=== PATIENT | female | born 1935 | race Hispanic/Latino ===

== ENCOUNTER 2018-03-21 17:44 | Inpatient (IN) | payer MEDICARE ==
--- NOTE | 2018-03-21 18:10 | ED PDOC ---
Syncope/Near Syncope/Dizziness Time Seen by Provider: 03/21/18 17:51 Chief Complaint (Nursing): Upper Extremity Problem/Injury History Per: Patient, Family History/Exam Limitations: no limitations Onset/Duration Of Symptoms: Hrs (3) Current Symptoms Are (Timing): Better Number Of Syncopal Episodes: 1 Activity At Onset Of Symptoms: Walking Associated Symptoms Preceding Syncopal Episode: Lightheadedness Seizure Or Post-ictal Symptoms: None Fall Associated With With Symptoms: Yes Severity: Moderate Pain Scale Rating Of: 4 Additional History Per: Patient, Family Additional Complaint(s): Patient reports syncopal episode x1 today. Reports dizziness that is chronic. Unable to recall all details. Denies chest pain or SOB. Reports left shoulder pain after the fall. Past Medical History Reviewed: Historical Data, Nursing Documentation, Vital Signs Vital Signs: Last Vital Signs Temp 98 F 03/21/18 17:46 Pulse 69 03/21/18 17:46 Resp 18 03/21/18 17:46 BP 150/68 03/21/18 17:46 Pulse Ox 98 03/21/18 17:46 - Medical History PMH: Anemia, Arthritis, Depression, Gastritis, HTN, Hypercholesterolemia Denies: HIV, Chronic Kidney Disease - Surgical History Surgical History: No Surg Hx - Family History Family History: States: No Known Family Hx - Home Medications Home Medications: Ambulatory Orders Medication Instructions Recorded RX: Aspirin [Aspirin EC] 81 mg PO Q48H 03/19/15 RX: Calcium/Vitamin D [Citracal+D 1 tab PO DAILY 03/19/15 315mg/250IU] RX: Labetalol Hydrochloride 300 mg PO Q12 03/19/15 [Labetalol] RX: Pantoprazole Sodium 40 mg PO DAILY 03/19/15 RX: Rosuvastatin Calcium [Crestor] 10 mg PO HS 03/19/15 RX: amLODIPine [Norvasc] 10 mg PO DAILY 03/19/15 - Allergies Allergies/Adverse Reactions: Allergies Allergy/AdvReac Type Severity Reaction Status Date / Time Penicillins Allergy Mild RASH Verified 03/21/18 18:04 Review of Systems ROS Statement: Except As Marked, All Systems Reviewed And Found Negative Physical Exam - Reviewed Nursing Documentation Reviewed: Yes Vital Signs Reviewed: Yes - Physical Exam Appears: Positive for: Non-toxic, No Acute Distress Head Exam: Positive for: ATRAUMATIC Skin: Positive for: Warm, Dry Eye Exam: Positive for: EOMI, PERRL Cardiovascular/Chest: Positive for: Regular Rate, Rhythm Respiratory: Positive for: Normal Breath Sounds Gastrointestinal/Abdominal: Positive for: Soft. Negative for: Tenderness Extremity: Negative for: Normal ROM (left shoulder limited due to pain), Deformity, Swelling Neurologic/Psych: Positive for: Alert, Oriented - Laboratory Results Result Diagrams: 03/22/18 04:20 03/22/18 06:00 - ECG O2 Sat by Pulse Oximetry: 98 - Other Rad Left shoulder xray X-Ray: Interpreted by Me, Viewed By Me X-Ray Interpretation: no acute findings Medical Decision Making Medical Decision Making: Impression Syncope, left shoulder injury Diff include cardiac arrhythmia, anemia, vertigo, as well as left shoulder fracture or dislocation Plan EKG CT head L shoulder xray labs reassess 1899 CT head reported as negative for acute findings by [facility] Disposition - Clinical Impression Clinical Impression: Syncope, Contusion shoulder/arm - Patient ED Disposition Is Patient to be Admitted: Yes Discussed With : Lico Wilde Doctor Will See Patient In The: Hospital Counseled Patient/Family Regarding: Studies Performed, Diagnosis - Disposition Disposition Time: 19:00 Condition: FAIR - Pt Status Changed To: Hospital Disposition Of: Observation - POA Present On Arrival: Falls Or Trauma
[2018-03-21 18:20] LABS: BASO # 0.1 K/uL (0.0-0.2); BASO % 0.4 % (0.0-2.0); EOS % 0.2 % (0.0-4.0); HEMOGLOBIN 8.8 g/dL (12.0-16.0); LYMPH # 1.4 K/uL (1.0-4.3); LYMPH % 10.8 % (20.0-40.0); MEAN CELL VOLUME 93.7 fl (81.0-99.0); MEAN PLATELET VOLUME 8.4 fl (7.2-11.7); MONO # 0.8 K/uL (0.0-0.8); MONO % 5.7 % (0.0-10.0); NEUT % 82.9 % (50.0-75.0); RBC 2.94 Mil/uL (3.80-5.20); RED CELL DISTRIBUTION WIDTH 13.7 % (11.5-14.5); WHITE BLOOD COUNT 13.2 K/uL (4.8-10.8)
[2018-03-21 18:24] LABS: BLOOD UREA NITROGEN 42 mg/dl (7-17); CALCIUM 9.6 mg/dL (8.4-10.2); GFR NON-AFRICAN AMERICAN 19
[2018-03-21] MEDS ORDERED: Oxycodone/Acetaminophen 5/325 mg Tab PO ONE (18:29)
[2018-03-21] MEDS ORDERED: Oxycodone/Acetaminophen 5/325 mg Tab ONE (19:16)
[2018-03-22] MEDS: Oxycodone/Acetaminophen 5/325 mg Tab PO PRN ×2 (04:47→18:06)
[2018-03-22 05:38] LABS: HEMOGLOBIN 8.6 g/dL (12.0-16.0); MEAN CELL VOLUME 91.9 fl (81.0-99.0); MEAN CORPUSCULAR HEMOGLOBIN 30.5 pg (27.0-31.0); MEAN CORPUSCULAR HGB CONC 33.2 g/dL (33.0-37.0); RBC 2.8 Mil/uL (3.80-5.20); RED CELL DISTRIBUTION WIDTH 13.4 % (11.5-14.5)
[2018-03-22 06:57] LABS: ALB/GLOB RATIO 1.7 (1.0-2.1); ALBUMIN 3.8 g/dL (3.5-5.0); CALCIUM 9.6 mg/dL (8.4-10.2)
--- NOTE | 2018-03-22 08:49 | CT ---
Date of service: 03/21/2018 PROCEDURE: CT HEAD WITHOUT CONTRAST. HISTORY: syncope COMPARISON: None available. TECHNIQUE: Axial computed tomography images were obtained through the head/brain without intravenous contrast. Radiation dose: Total exam DLP = 03/19/2015 mGy-cm. This CT exam was performed using one or more of the following dose reduction techniques: Automated exposure control, adjustment of the mA and/or kV according to patient size, and/or use of iterative reconstruction technique. FINDINGS: HEMORRHAGE: No intracranial hemorrhage. BRAIN: Anterior left temporal fossa arachnoid cyst, unchanged. Possible calcified meningioma left frontal and possible calcified meningioma right parietal, unchanged from prior. No other intracranial mass.. Mild diffuse age-appropriate cerebral atrophy. Mild to moderate patchy periventricular and deep/subcortical white matter lucency consistent with microvascular white matter ischemic change. No evidence of acute infarct. VENTRICLES: Unremarkable. No hydrocephalus. CALVARIUM: No acute fracture. PARANASAL SINUSES: Chronic left maxillary sinusitis. MASTOID AIR CELLS: Unremarkable as visualized. No inflammatory changes. OTHER FINDINGS: None. IMPRESSION: No intracranial hemorrhage. Resolved anterior midline scalp hematoma. Left temporal arachnoid cyst. Possible small calcified meningiomas. Chronic left maxillary sinusitis. Age related atrophy and chronic white matter ischemic change. The preliminary findings for this examination were reported by [facility] at 6:58 p.m. on 03/21/2018. There is concurrence of this report with the preliminary findings.
[2018-03-22] MEDS: Pantoprazole 40 mg EC Tab PO SCH (08:52)
[2018-03-22] MEDS: Citracal+D 315mg/250IU PO SCH (08:53)
[2018-03-22 08:56] VITALS: BMI 31.6
--- NOTE | 2018-03-22 10:25 | CP.PCM.HP ---
History of Present Illness - History of Present Illness History of Present Illness: pt admitted for syncope/fall. has h/o ckd, as. no f/c, n/v/d. bw noted. pt c/o left shoulder pain at present as well as b/l chronic knee pain. Present on Admission - Present on Admission Any Indicators Present on Admission: Yes History of Uncontrolled Diabetes: Yes Review of Systems - Musculoskeletal Musculoskeletal: As Per HPI, Arthralgias - Neurological Neurological: As Per HPI, Frequent Falls Past Patient History - Past Medical History & Family History Past Medical History?: Yes - Past Social History Smoking Status: Never Smoked - CARDIAC Hx Hypercholesterolemia: Yes Hx Hypertension: Yes - PULMONARY Hx Respiratory Disorders: No - NEUROLOGICAL Hx Neurological Disorder: No - HEENT Hx Macular Degeneration: Yes - RENAL Hx Chronic Kidney Disease: Yes - ENDOCRINE/METABOLIC Hx Endocrine Disorders: Yes Hx Diabetes Mellitus Type 2: Yes - HEMATOLOGICAL/ONCOLOGICAL Hx AIDS: No Hx Anemia: Yes Hx Blood Transfusions: Yes Hx Blood Transfusion Reaction: No Hx Human Immunodeficiency Virus (HIV): No - INTEGUMENTARY Hx Dermatological Problems: No - MUSCULOSKELETAL/RHEUMATOLOGICAL Hx Arthritis: Yes Hx Falls: Yes Hx Osteoporosis: Yes - GASTROINTESTINAL Hx Gastritis: Yes - GENITOURINARY/GYNECOLOGICAL Hx Genitourinary Disorders: No - PSYCHIATRIC Hx Substance Use: No - SURGICAL HISTORY Hx Surgeries: Yes Hx Hysterectomy: Yes Hx Orthopedic Surgery: Yes (right knee sx) - ANESTHESIA Hx Anesthesia: Yes Hx Anesthesia Reactions: No Meds Allergies/Adverse Reactions: Allergies Allergy/AdvReac Type Severity Reaction Status Date / Time Penicillins Allergy Mild RASH Verified 03/21/18 18:04 Physical Exam - Constitutional Appears: Well, Non-toxic, No Acute Distress - Head Exam Head Exam: ATRAUMATIC, NORMAL INSPECTION, NORMOCEPHALIC - Eye Exam Eye Exam: EOMI, Normal appearance, PERRL Pupil Exam: NORMAL ACCOMODATION, PERRL - ENT Exam ENT Exam: Mucous Membranes Moist, Normal Exam - Neck Exam Neck exam: Positive for: Normal Inspection - Respiratory Exam Respiratory Exam: Clear to Auscultation Bilateral, NORMAL BREATHING PATTERN - Cardiovascular Exam Cardiovascular Exam: REGULAR RHYTHM, RRR, +S1, +S2 - GI/Abdominal Exam GI & Abdominal Exam: Normal Bowel Sounds, Soft. absent: Tenderness - Extremities Exam Extremities exam: Positive for: full ROM, normal capillary refill, normal inspection, pedal pulses present - Back Exam Back exam: NORMAL INSPECTION - Neurological Exam Neurological exam: Alert, CN II-XII Intact, Normal Gait, Oriented x3, Reflexes Normal - Psychiatric Exam Psychiatric exam: Normal Affect, Normal Mood - Skin Skin Exam: Dry, Intact, Normal Color, Warm Results - Vital Signs Recent Vital Signs: Last Vital Signs Temp 98.3 F 03/22/18 07:52 Pulse 72 03/22/18 08:52 Resp 23 03/22/18 07:52 BP 112/59 L 03/22/18 08:52 Pulse Ox 100 03/22/18 07:52 - Labs Result Diagrams: 03/22/18 04:20 03/22/18 06:00 Labs: Laboratory Results - last 24 hr 03/21/18 03/21/18 03/21/18 18:01 18:12 18:12 WBC 13.2 H RBC 2.94 L Hgb 8.8 L Hct 27.6 L MCV 93.7 MCH 30.0 MCHC 32.0 L RDW 13.7 Plt Count 216 MPV 8.4 Neut % (Auto) 82.9 H Lymph % (Auto) 10.8 L Leslie % (Auto) 5.7 Eos % (Auto) 0.2 Baso % (Auto) 0.4 Neut # (Auto) 11.0 H Lymph # (Auto) 1.4 Leslie # (Auto) 0.8 Eos # (Auto) 0.0 Baso # (Auto) 0.1 Sodium 138 Potassium 5.0 Chloride 111 H Carbon Dioxide 14 L Anion Gap 18 BUN 42 H Creatinine 2.4 H Est GFR ( Amer) 23 Est GFR (Non-Af Amer) 19 POC Glucose (mg/dL) 123 H Random Glucose 118 H Calcium 9.6 Total Bilirubin AST ALT Alkaline Phosphatase Total Creatine Kinase Troponin I < 0.0120 Total Protein Albumin Globulin Albumin/Globulin Ratio Blood Type Antibody Screen BBK History Checked 03/21/18 03/21/18 03/21/18 18:46 18:54 21:08 WBC RBC Hgb Hct MCV MCH MCHC RDW Plt Count MPV Neut % (Auto) Lymph % (Auto) Leslie % (Auto) Eos % (Auto) Baso % (Auto) Neut # (Auto) Lymph # (Auto) Leslie # (Auto) Eos # (Auto) Baso # (Auto) Sodium Potassium Chloride Carbon Dioxide Anion Gap BUN Creatinine Est GFR ( Amer) Est GFR (Non-Af Amer) POC Glucose (mg/dL) 115 H Random Glucose Calcium Total Bilirubin AST ALT Alkaline Phosphatase Total Creatine Kinase 167 H Troponin I Total Protein Albumin Globulin Albumin/Globulin Ratio Blood Type A POSITIVE Antibody Screen Negative BBK History Checked Patient has bt 03/22/18 03/22/18 03/22/18 04:20 04:39 06:00 WBC 9.0 RBC 2.80 L Hgb 8.6 L Hct 25.8 L MCV 91.9 MCH 30.5 MCHC 33.2 RDW 13.4 Plt Count 203 MPV Neut % (Auto) Lymph % (Auto) Leslie % (Auto) Eos % (Auto) Baso % (Auto) Neut # (Auto) Lymph # (Auto) Leslie # (Auto) Eos # (Auto) Baso # (Auto) Sodium 139 Potassium 4.5 Chloride 112 H Carbon Dioxide 14 L Anion Gap 18 BUN 39 H Creatinine 2.3 H Est GFR ( Amer) 25 Est GFR (Non-Af Amer) 20 POC Glucose (mg/dL) 89 Random Glucose 87 Calcium 9.6 Total Bilirubin 0.7 AST 15 ALT 23 Alkaline Phosphatase 52 Total Creatine Kinase Troponin I Total Protein 6.1 L Albumin 3.8 Globulin 2.3 Albumin/Globulin Ratio 1.7 Blood Type Antibody Screen BBK History Checked Assessment & Plan (1) Contusion shoulder/arm Assessment and Plan: ct pm/r pain control Status: Acute (2) Syncope Assessment and Plan: cardio tele cont home meds monitor closely Status: Acute (3) Anemia Assessment and Plan: appears to be chronic. likely anemia of chronic dz monitor h.h Status: Acute (4) Aortic stenosis, severe Assessment and Plan: cardio echo Status: Acute (5) CKD (chronic kidney disease) Assessment and Plan: monitor bun/cr hydration nephro prn Status: Acute (6) DVT prophylaxis Assessment and Plan: scd and ae hose hold anticoag r/t falls Status: Acute (7) Diabetes type 2, uncontrolled Assessment and Plan: fsbg, diet control home meds Status: Acute Decision To Admit - Pt Status Changed To: Hospital Disposition Of: Inpatient - Admit Certification Admit to Inpatient:: After my assessment, the patient will require hospitalization for at least two midnights. This is because of the severity of symptoms shown, intensity of services needed, and/or the medical risk in this patient being treated as an outpatient. - . Bed Request Type: Telemetry Admitting Physician: Gopal Phoenix
--- NOTE | 2018-03-22 11:13 | CARD ---
APPROVED REPORT Date of service: 03/21/2018 EKG Measurement Heart [id number] <Conclusion> Normal sinus rhythm Normal ECG
--- NOTE | 2018-03-22 11:45 | RAD ---
Date of service: 03/21/2018 PROCEDURE: Radiographs of the Left Shoulder HISTORY: left shoulder pain injury COMPARISON: No prior. FINDINGS: BONES: Normal. No fracture. JOINTS: Glenohumeral degenerative change. SOFT TISSUES: Normal. OTHER FINDINGS: None. IMPRESSION: No significant or acute findings to account for/ related to the clinical presentation. Additional benign and/or incidental findings described above.
--- NOTE | 2018-03-22 17:21 | CP.PCM.CON ---
History of Present Illness - History of Present Illness History of Present Illness: I was asked to see patient by Dr Phoenix and Lico Wilde APN. Patient seen 03/22/18 1630 Patient is a 83 year old female with HTN, hypercholesterolemia and who was admitted for syncope. Patient complains of recent dizziness. While at home yesterday she was walking and developed dizziness. She fell and injured her shoulder. She denies preceding palpitiations or dyspnea. Review of Systems - Constitutional Constitutional: absent: As Per HPI, Anorexia, Chills, Daytime Sleepiness, Excessive Sweating, Fatigue, Fever, Frequent Falls, Headache, Increased Appet ite, Lethargy, Malaise, Night Sweats, Snoring, Sleep Apnea, Weight Gain, Weight Loss, Weakness, Other - EENT Eyes: absent: As Per HPI, Blind Spots, Blurred Vision, Change in Vision, Decreased Night Vision, Diplopia, Discharge, Dry Eye, Exophthalmos, Floaters, I rritation, Itchy Eyes, Loss of Peripheral Vision, Pain, Photophobia, Requires Corrective Lenses, Sees Flashes, Spots in Vision, Tunnel Vision, Other Visual Disturbances, Loss of Vision, Other Ears: absent: As Per HPI, Decreased Hearing, Ear Discharge, Ear Pain, Tinnitus, Abnormal Hearing, Disequilibrium, Dizziness, Other Nose/Mouth/Throat: absent: As Per HPI, Epistaxis, Nasal Congestion, Nasal Discharge, Nasal Obstruction, Nasal Trauma, Nose Pain, Post Nasal Drip, Sinus Pain, Sinus Pressure, Bleeding Gums, Change in Voice, Dental Pain, Dry Mouth, Dysphagia, Halitosis, Hoarsness, Lip Swelling, Mouth Lesions, Mouth Pain, Odynophagia, Sore Throat, Throat Swelling, Tongue Swelling, Facial Pain, Neck Pain, Neck Mass, Other - Breasts Breasts: absent: As Per HPI, Change in Shape, Mass, Pain, Nipple Discharge, Nipple Inversion, Skin Changes, Swelling, Other - Cardiovascular Cardiovascular: Syncope - Respiratory Respiratory: absent: As Per HPI, Cough, Dyspnea, Hemoptysis, Dyspnea on Exertion, Wheezing, Snoring, Stridor, Pain on Inspiration, Chest Congestion, Excessive Mucous Production, Change in Mucous Color, Pain with Coughing, Other - Gastrointestinal Gastrointestinal: absent: As Per HPI, Abdominal Pain, Belching, Bloating, Change in Bowel Habits, Change in Stool Character, Coffee Ground Emesis, Constipation, Cramping, Diarrhea, Dyspepsia, Dysphagia, Early Satiety, Excessive Flatus, Fecal Incontinence, Heartburn, Hematemesis, Hematochezia, Loose Stools, Melena, Nausea, Odynophagia, Temesmus, Vomiting, Other - Genitourinary Genitourinary: absent: As Per HPI, Change in Urinary Stream, Difficulty Urinating, Dysuria, Flank Pain, Hematuria, Pyuria, Nocturia, Urinary Incontinence, Urinary Frequency, Urinary Hesitance, Urinary Urgency, Voiding Freq/Small Amts, Freq UTI, Hx Renal/Bladder Calculi, Hx /Renal Surgery, Bladder Distension, Other - Musculoskeletal Musculoskeletal: absent: As Per HPI, Abnormal Gait, Arthralgias, Atrophy, Back Pain, Deformity, Joint Swelling, Limited Range of Motion, Loss of Height, Muscle Cramps, Muscle Weakness, Myalgias, Neck Pain, Numbness, Radiating Pain into L imb, Stiffness, Tingling, Other - Integumentary Integumentary: absent: As Per HPI, Acne, Alopecia, Bleeding Lesions, Change in Hair, Change in Nails, Change in Pigmentation, Changing Lesions, Dry Skin, Erythema, Furuncle, Hirsutism, Lesions, New Lesions, Non-Healing Lesions, Photosensitivity, Pruritus, Rash, Skin Pain, Skin Ulcer, Sores, Striae, Swelling, Unusual Bruising, Wounds, Jaundice, Other - Neurological Neurological: Syncope - Psychiatric Psychiatric: absent: As Per HPI, Abnormal Sleep Pattern, Anhedonia, Anxiety, Auditory Hallucinations, Behavioral Changes, Change in Appetite, Change in Libido, Confusion, Depression, Difficulty Concentrating, Hallucinations, Homicid al Ideation, Hopelessness, Irritability, Memory Loss, Mood Swings, Panic Attacks, Paranoia, Suicidal Ideation, Visual Hallucinations, Tactile Hallucinations, Other - Endocrine Endocrine: absent: As Per HPI, Change in Body Appearance, Change in Libido, Cold Intolorance, Deepening of Voice, Excessive Sweating, Fatigue, Flushing, Heat Intolorance, Increase in Ring/Shoe/Hat Size, Palpitations, Polydipsia, Polyphagia, Polyuria, Other - Hematologic/Lymphatic Hematologic: absent: As Per HPI, Easy Bleeding, Easy Bruising, Lymphadenopathy, Other Past Patient History - Past Medical History & Family History Past Medical History?: Yes - Past Social History Smoking Status: Never Smoked - CARDIAC Hx Hypercholesterolemia: Yes Hx Hypertension: Yes - PULMONARY Hx Respiratory Disorders: No - NEUROLOGICAL Hx Neurological Disorder: No - HEENT Hx Macular Degeneration: Yes - RENAL Hx Chronic Kidney Disease: Yes - ENDOCRINE/METABOLIC Hx Endocrine Disorders: Yes Hx Diabetes Mellitus Type 2: Yes - HEMATOLOGICAL/ONCOLOGICAL Hx AIDS: No Hx Anemia: Yes Hx Blood Transfusions: Yes Hx Blood Transfusion Reaction: No Hx Human Immunodeficiency Virus (HIV): No - INTEGUMENTARY Hx Dermatological Problems: No - MUSCULOSKELETAL/RHEUMATOLOGICAL Hx Arthritis: Yes Hx Falls: Yes Hx Osteoporosis: Yes - GASTROINTESTINAL Hx Gastritis: Yes - GENITOURINARY/GYNECOLOGICAL Hx Genitourinary Disorders: No - PSYCHIATRIC Hx Substance Use: No - SURGICAL HISTORY Hx Surgeries: Yes Hx Hysterectomy: Yes Hx Orthopedic Surgery: Yes (right knee sx) - ANESTHESIA Hx Anesthesia: Yes Hx Anesthesia Reactions: No Meds Allergies/Adverse Reactions: Allergies Allergy/AdvReac Type Severity Reaction Status Date / Time Penicillins Allergy Mild RASH Verified 03/21/18 18:04 - Medications Medications: Current Medications Acetaminophen (Tylenol 325mg Tab) 650 mg PO Q4 PRN PRN Reason: Pain, moderate (4-7) Last Admin: 03/22/18 09:43 Dose: 650 mg Amlodipine Besylate (Norvasc) 10 mg PO DAILY [facility] Last Admin: 03/22/18 08:52 Dose: 10 mg Aspirin (Ecotrin) 81 mg PO Q7D [facility] Last Admin: 03/22/18 08:52 Dose: 81 mg Atorvastatin Calcium (Lipitor) 20 mg PO HS [facility] Last Admin: 03/21/18 21:34 Dose: 20 mg Calcium/Vitamin D (Citracal+D 315mg/250iu) 1 tab PO DAILY [facility] Last Admin: 03/22/18 08:53 Dose: 1 tab Labetalol HCl (Trandate) 300 mg PO Q12 [facility] Last Admin: 03/22/18 08:53 Dose: 300 mg Oxycodone/Acetaminophen (Percocet 5/325 Mg Tab) 1 tab PO Q6 PRN PRN Reason: Pain, severe (8-10) Stop: 03/24/18 20:43 Last Admin: 03/22/18 04:47 Dose: 1 tab Pantoprazole Sodium (Protonix Ec Tab) 40 mg PO DAILY [facility] Last Admin: 03/22/18 08:52 Dose: 40 mg Physical Exam - Constitutional Appears: Non-toxic - Head Exam Head Exam: NORMAL INSPECTION - Eye Exam Eye Exam: Normal appearance - ENT Exam ENT Exam: Mucous Membranes Moist - Neck Exam Neck exam: Positive for: Full Rom - Respiratory Exam Respiratory Exam: NORMAL BREATHING PATTERN - Cardiovascular Exam Cardiovascular Exam: REGULAR RHYTHM, Systolic Murmur Additional comments: crescendo systolic murmur - GI/Abdominal Exam GI & Abdominal Exam: Normal Bowel Sounds - Rectal Exam Rectal Exam: Deferred - Extremities Exam Extremities exam: Positive for: normal inspection. Negative for: pedal edema - Back Exam Back exam: NORMAL INSPECTION - Neurological Exam Neurological exam: Alert, Oriented x3 - Psychiatric Exam Psychiatric exam: Normal Affect - Skin Skin Exam: Normal Color Results - Vital Signs Recent Vital Signs: Last Vital Signs Temp 98.2 F 03/22/18 12:00 Pulse 65 03/22/18 16:28 Resp 23 03/22/18 16:00 BP 121/68 03/22/18 16:28 Pulse Ox 93 L 03/22/18 16:28 - Labs Result Diagrams: 03/22/18 04:20 03/22/18 06:00 Labs: Laboratory Results - last 24 hr 03/21/18 03/21/18 03/21/18 18:01 18:12 18:12 WBC 13.2 H RBC 2.94 L Hgb 8.8 L Hct 27.6 L MCV 93.7 MCH 30.0 MCHC 32.0 L RDW 13.7 Plt Count 216 MPV 8.4 Neut % (Auto) 82.9 H Lymph % (Auto) 10.8 L Kerr % (Auto) 5.7 Eos % (Auto) 0.2 Baso % (Auto) 0.4 Neut # (Auto) 11.0 H Lymph # (Auto) 1.4 Kerr # (Auto) 0.8 Eos # (Auto) 0.0 Baso # (Auto) 0.1 Sodium 138 Potassium 5.0 Chloride 111 H Carbon Dioxide 14 L Anion Gap 18 BUN 42 H Creatinine 2.4 H Est GFR ( Amer) 23 Est GFR (Non-Af Amer) 19 POC Glucose (mg/dL) 123 H Random Glucose 118 H Calcium 9.6 Total Bilirubin AST ALT Alkaline Phosphatase Total Creatine Kinase Troponin I < 0.0120 Total Protein Albumin Globulin Albumin/Globulin Ratio Blood Type Antibody Screen BBK History Checked 03/21/18 03/21/18 03/21/18 18:46 18:54 21:08 WBC RBC Hgb Hct MCV MCH MCHC RDW Plt Count MPV Neut % (Auto) Lymph % (Auto) Kerr % (Auto) Eos % (Auto) Baso % (Auto) Neut # (Auto) Lymph # (Auto) Kerr # (Auto) Eos # (Auto) Baso # (Auto) Sodium Potassium Chloride Carbon Dioxide Anion Gap BUN Creatinine Est GFR ( Amer) Est GFR (Non-Af Amer) POC Glucose (mg/dL) 115 H Random Glucose Calcium Total Bilirubin AST ALT Alkaline Phosphatase Total Creatine Kinase 167 H Troponin I Total Protein Albumin Globulin Albumin/Globulin Ratio Blood Type A POSITIVE Antibody Screen Negative BBK History Checked Patient has bt 03/22/18 03/22/18 03/22/18 04:20 04:39 06:00 WBC 9.0 RBC 2.80 L Hgb 8.6 L Hct 25.8 L MCV 91.9 MCH 30.5 MCHC 33.2 RDW 13.4 Plt Count 203 MPV Neut % (Auto) Lymph % (Auto) Kerr % (Auto) Eos % (Auto) Baso % (Auto) Neut # (Auto) Lymph # (Auto) Kerr # (Auto) Eos # (Auto) Baso # (Auto) Sodium 139 Potassium 4.5 Chloride 112 H Carbon Dioxide 14 L Anion Gap 18 BUN 39 H Creatinine 2.3 H Est GFR ( Amer) 25 Est GFR (Non-Af Amer) 20 POC Glucose (mg/dL) 89 Random Glucose 87 Calcium 9.6 Total Bilirubin 0.7 AST 15 ALT 23 Alkaline Phosphatase 52 Total Creatine Kinase Troponin I Total Protein 6.1 L Albumin 3.8 Globulin 2.3 Albumin/Globulin Ratio 1.7 Blood Type Antibody Screen BBK History Checked 03/22/18 11:44 WBC RBC Hgb Hct MCV MCH MCHC RDW Plt Count MPV Neut % (Auto) Lymph % (Auto) Kerr % (Auto) Eos % (Auto) Baso % (Auto) Neut # (Auto) Lymph # (Auto) Kerr # (Auto) Eos # (Auto) Baso # (Auto) Sodium Potassium Chloride Carbon Dioxide Anion Gap BUN Creatinine Est GFR ( Amer) Est GFR (Non-Af Amer) POC Glucose (mg/dL) 110 Random Glucose Calcium Total Bilirubin AST ALT Alkaline Phosphatase Total Creatine Kinase Troponin I Total Protein Albumin Globulin Albumin/Globulin Ratio Blood Type Antibody Screen BBK History Checked - EKG Data EKG Interpreted by: Myself EKG shows normal: Sinus rhythm Assessment & Plan (1) Syncope Assessment and Plan: may be due to orthostasis or a combination of relative hypotension in a patient with aortic stenosis. The degree of does not appear to explain the cause of her dizziness. She has moderate to severe . Status: Acute (2) Aortic stenosis Assessment and Plan: Moderate to severe. LV function is normal. Does not appear surgical at this time. recommend d/c amlodipine. may need to decrease labetalol to avoid hypotension Status: Acute (3) HTN (hypertension) Assessment and Plan: d/c amlodipine Status: Acute
--- NOTE | 2018-03-22 17:50 | CT ---
Date of service: 03/22/2018 PROCEDURE: CT left shoulder HISTORY: left shoulder pain COMPARISON: Not available TECHNIQUE: 2.5 mm contiguous axial sections were acquired through the left shoulder. Sagittal and coronal images were reformatted from the axial scan. No prior examination is available for comparison. FINDINGS: There is an oblique mildly displaced comminuted fracture of the left scapula. There is mild osteoarthritis of the glenohumeral articulation. The acromioclavicular articulation shows degenerative arthritis. There is no rib fracture. No lytic or blastic osseous lesion is appreciated. There is no soft tissue hematoma identified. There is a small comminuted minimally displaced fracture of the tip of the coracoid process. There is mild compression deformity of the T4 vertebra and moderate compression deformity of the T6 vertebra. Mild compression deformity of the T7 vertebra. Age indeterminate. No displaced fractures. There is grade 1-2 anterolisthesis at the C6-7 level with severe narrowing of the disc space consistent with degenerative disc disease. IMPRESSION: Comminuted oblique displaced left scapular fracture. Comminuted fracture tip of coracoid process. Compression fractures of T4, T6 and T7 vertebrae, age indeterminate. The findings were described by telephone to the patient's nurse, Sue Tong, at 5:45 p.m. on 03/22/2018.
--- NOTE | 2018-03-23 00:07 | CARD ---
APPROVED REPORT Date of service: 03/22/2018 EXAM: Two-dimensional and M-mode echocardiogram with Doppler and color Doppler. Other Information Quality : AverageRhythm : NSR Technically limited study due to Has a brikeb shoulder arm in a sling INDICATION Congestive Heart Failure 2D DIMENSIONS IVSd1.14 (0.7-1.1cm)LVDd4.44 (3.9-5.9cm) LVOT Diameter2.27 (1.8-2.4cm)PWd1.00 (0.7-1.1cm) IVSs1.26 (0.8-1.2cm)LVDs3.56 (2.5-4.0cm) FS (%) 19.9 %PWs1.15 (0.8-1.2cm) Aortic Valve AoV Peak Zaboaiys576.4cm/sAoV VTI70.3cmAO Peak GR.34mmHg LVOT Peak Cvgpkuph31.0cm/sLVOT VTI23.41cmAO Mean GR.20mmHg MARISSA (VMAX)0.54fu1KMV (VTI)0.79cm2 Mitral Valve MV E Ydpwzzuw35.5cm/sMV DECEL FFEW444buSB A Sdnwkprt97.5cm/s MV OCI50jwH/A ratio0.7MVA (PHT)2.39cm2 TDI Lateral E' Peak V7.82cm/sMedial E' Peak V6.11cm/sE/Lateral E'8.6 E/Medial E'11.0 LEFT VENTRICLE The left ventricle is normal size. There is borderline concentric left ventricular hypertrophy. The left ventricular systolic function is normal. The estimated ejection fraction is 55-60 % No regional wall motion abnormalities noted.. Transmitral Doppler flow pattern is Grade I-abnormal relaxation pattern. No left ventricle thrombus noted on this study. There is no ventricular septal defect visualized. There is no left ventricular aneurysm. There is no mass noted in the left ventricle. RIGHT VENTRICLE The right ventricle is normal size. There is normal right ventricular wall thickness. The right ventricular systolic function is normal. ATRIA The left atrium is moderately dilated. The right atrium size is normal. The interatrial septum is intact with no evidence for an atrial septal defect. AORTIC VALVE The aortic leaflets are mildly calcified. No aortic regurgitation is present. There is mild to moderate aortic stenosis, with aortic velocity of 3 m/sec with calculated AV area of 1.4 cm2. There is no aortic valvular vegetation. MITRAL VALVE The mitral valve is normal in structure. There is no evidence of mitral valve prolapse. There is no mitral valve stenosis. There is no mitral valve regurgitation noted. TRICUSPID VALVE The tricuspid valve is normal in structure. There is mild tricuspid valve regurgitation noted. There is no tricuspid valve prolapse or vegetation. There is no tricuspid valve stenosis. PULMONIC VALVE The pulmonary valve is normal in structure. There is no pulmonic valvular regurgitation. There is no pulmonic valvular stenosis. GREAT VESSELS The aortic root is normal in size. The ascending aorta is normal in size. The pulmonary artery is normal. The IVC is normal in size and collapses >50% with inspiration. PERICARDIAL EFFUSION There is no pericardial effusion. There is no pleural effusion. <Conclusion> The estimated ejection fraction is 55-60 % Transmitral Doppler flow pattern is Grade I-abnormal relaxation pattern. The left atrium is moderately dilated. There is mild to moderate aortic stenosis, with aortic velocity of 3 m/sec with calculated AV area of 1.4 cm2. There is mild tricuspid valve regurgitation noted.
[2018-03-23 05:42] LABS: BASO % 0.4 % (0.0-2.0); EOS # 0.1 K/uL (0.0-0.7); EOS % 1.1 % (0.0-4.0); HEMOGLOBIN 8.6 g/dL (12.0-16.0); LYMPH # 1.6 K/uL (1.0-4.3); LYMPH % 16.7 % (20.0-40.0); MEAN CELL VOLUME 94.8 fl (81.0-99.0); MEAN CORPUSCULAR HGB CONC 32.7 g/dL (33.0-37.0); MEAN PLATELET VOLUME 8.5 fl (7.2-11.7); MONO # 0.9 K/uL (0.0-0.8); MONO % 8.8 % (0.0-10.0); NEUT # 7.2 K/uL (1.8-7.0); RBC 2.78 Mil/uL (3.80-5.20); RED CELL DISTRIBUTION WIDTH 13.1 % (11.5-14.5); WHITE BLOOD COUNT 9.9 K/uL (4.8-10.8)
[2018-03-23 06:09] LABS: ALB/GLOB RATIO 1.8 (1.0-2.1); CALCIUM 9.6 mg/dL (8.4-10.2)
[2018-03-23 07:38] VITALS: O2SAT 94
[2018-03-23] MEDS: Citracal+D 315mg/250IU PO SCH (09:45)
[2018-03-23] MEDS: Pantoprazole 40 mg EC Tab PO SCH (09:46)
[2018-03-23] MEDS: Oxycodone/Acetaminophen 5/325 mg Tab PO PRN (09:51)
[2018-03-23 09:52] VITALS: PULSE 64
--- NOTE | 2018-03-23 10:08 | CP.PCM.PN ---
Subjective - Date & Time of Evaluation Date of Evaluation: 04/02/18 Time of Evaluation: 10:05 - Subjective Subjective: pt doing well, in bed w/o distress. pain controlled bw noted. hgb stable, bun/cr stable ct w/ obliqe fx of humerous-ortho on case cardio notes appriciated. echo noted. pt notes reviewed and pt is for 6NR Objective - Vital Signs/Intake and Output Vital Signs (last 24 hours): Temp Pulse Resp BP Pulse Ox 98.1 F 64 31 H 131/62 94 L 03/23/18 07:37 03/23/18 09:45 03/23/18 07:37 03/23/18 09:45 03/23/18 07:37 - Medications Medications: Current Medications Acetaminophen (Tylenol 325mg Tab) 650 mg PO Q4 PRN PRN Reason: Pain, moderate (4-7) Last Admin: 03/22/18 09:43 Dose: 650 mg Amlodipine Besylate (Norvasc) 10 mg PO DAILY [facility] Last Admin: 03/23/18 09:45 Dose: Not Given Aspirin (Ecotrin) 81 mg PO Q7D [facility] Last Admin: 03/22/18 08:52 Dose: 81 mg Atorvastatin Calcium (Lipitor) 20 mg PO HS [facility] Last Admin: 03/22/18 21:08 Dose: 20 mg Calcium/Vitamin D (Citracal+D 315mg/250iu) 1 tab PO DAILY [facility] Last Admin: 03/23/18 09:45 Dose: 1 tab Labetalol HCl (Trandate) 300 mg PO Q12 [facility] Last Admin: 03/23/18 09:46 Dose: 300 mg Oxycodone/Acetaminophen (Percocet 5/325 Mg Tab) 1 tab PO Q6 PRN PRN Reason: Pain, severe (8-10) Stop: 03/24/18 20:43 Last Admin: 03/23/18 09:51 Dose: 1 tab Pantoprazole Sodium (Protonix Ec Tab) 40 mg PO DAILY [facility] Last Admin: 03/23/18 09:46 Dose: 40 mg - Labs Labs: 03/23/18 04:20 03/23/18 04:20 - Constitutional Appears: Well, Non-toxic, No Acute Distress - Head Exam Head Exam: ATRAUMATIC, NORMAL INSPECTION, NORMOCEPHALIC - Eye Exam Eye Exam: EOMI, Normal appearance, PERRL Pupil Exam: NORMAL ACCOMODATION, PERRL - ENT Exam ENT Exam: Mucous Membranes Moist, Normal Exam - Neck Exam Neck Exam: Full ROM, Normal Inspection. absent: Lymphadenopathy - Respiratory Exam Respiratory Exam: Clear to Ausculation Bilateral, NORMAL BREATHING PATTERN - Cardiovascular Exam Cardiovascular Exam: REGULAR RHYTHM, RRR, +S1, +S2. absent: Murmur - GI/Abdominal Exam GI & Abdominal Exam: Soft, Normal Bowel Sounds. absent: Tenderness - Extremities Exam Extremities Exam: Full ROM, Normal Capillary Refill, Normal Inspection. absent: Joint Swelling, Pedal Edema - Back Exam Back Exam: NORMAL INSPECTION - Neurological Exam Neurological Exam: Alert, Awake, CN II-XII Intact, Normal Gait, Oriented x3 - Psychiatric Exam Psychiatric exam: Normal Affect, Normal Mood - Skin Skin Exam: Dry, Intact, Normal Color, Warm Assessment and Plan (1) Contusion shoulder/arm Status: Acute (2) Syncope Status: Acute (3) Anemia Status: Acute (4) Aortic stenosis, severe Status: Acute (5) CKD (chronic kidney disease) Status: Acute (6) DVT prophylaxis Status: Acute (7) Diabetes type 2, uncontrolled Status: Acute - Assessment and Plan (Free Text) Assessment: (1) fracture shoulder/arm Assessment and Plan: ct pm/r pain control ortho Status: Acute (2) Syncope Assessment and Plan: cardio tele cont home meds monitor closely cardio cleared for 6nr Status: Acute (3) Anemia Assessment and Plan: appears to be chronic. likely anemia of chronic dz monitor h.h Status: Acute (4) Aortic stenosis, severe Assessment and Plan: cardio echo Status: Acute (5) CKD (chronic kidney disease) Assessment and Plan: monitor bun/cr hydration nephro prn Status: Acute (6) DVT prophylaxis Assessment and Plan: scd and ae hose hold anticoag r/t falls Status: Acute (7) Diabetes type 2, uncontrolled Assessment and Plan: fsbg, diet control home meds Status: Acute
--- NOTE | 2018-03-23 10:09 | PQF ---
PROVIDER RESPONSE TEXT: Ckd stage 3 REVIEWER QUERY TEXT: Kidney Disease, Chronic CKD Stage Chronic Kidney Disease (CKD) is documented in the Medical Record. Please specify the disease stage ( includes probable or suspected) Such as: -- Chronic kidney disease Stage 1 -- Chronic kidney disease Stage 2 -- Chronic kidney disease Stage 3 -- Chronic kidney disease Stage 4 -- Chronic kidney disease Stage 5 -- Chronic kidney disease Stage 5, requiring dialysis -- End Stage Renal Disease -- Other, please specify Stages are defined by the [employer] as follows: CKD Stage I GFR >= 90 ml / min per 1.73 m2 and persistent albuminuria CKD Stage 2 GFR between 60 and 89 with persistent albuminuria CKD Stage 3 GFR between 30 and 59 CKD Stage 4 GFR between 15 and 29 CKD Stage 5 GFR between <15 or End Stage Renal Disease The patient's Clinical Indicators include: BUN: 42-> 39 -> 47 Creatinine 2.4 -> 2.3 -> 2.3 GFR: 19-> 20 -> 20 Query created by: Whit Randle on 03/23/2018 9:59 AM Electronically signed by: Lico Wilde APN 03/23/2018 10:06 AM
--- NOTE | 2018-03-23 10:30 | RAD ---
Date of service: 03/22/2018 PROCEDURE: Bilateral Knee Radiographs. HISTORY: pain, falls COMPARISON: None. FINDINGS: BONES: Right Knee: No acute fracture. Status post ORIF proximal tibia, likely lateral tibial condyle fracture. Healed. Left Knee: Normal. No fracture. JOINTS: Right Knee: Severe tricompartmental osteoarthritis most pronounced in the medial joint compartment. No articular erosions. Left knee: Medial and patellofemoral osteoarthritis most pronounced in the medial joint compartment. No articular erosions. SOFT TISSUES: Right Knee: Normal. Left Knee: Normal. JOINT EFFUSION: Right Knee: None. Left Knee: None. OTHER FINDINGS: None. IMPRESSION: No acute fracture. Multi compartmental osteoarthritis bilaterally as detailed above.
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
[2018-03-23 16:21] VITALS: BP 106/48; RESP 19; TEMP 97
--- NOTE | 2018-03-25 18:41 | CP.PCM.DIS ---
Provider - Provider Date of Admission: 03/21/18 18:29 Attending physician: Gopal Phoenix MD Consults: 03/21/18 20:56 Cardiology Consult Routine Comment: Consulting Provider: Issac Jimenez Consulting Physician: Issac Jimenez Reason for Consult: Syncope 03/21/18 23:14 Case Management Referral Routine Comment: Physician Instructions: Reason For Exam: Reason for Referral: Discharge Planning 03/22/18 10:43 Physiatry Consult Routine Comment: Consulting Provider: Anatoliy Verduzco Consulting Physician: Anatoliy Verduzco Reason for Consult: chronci pain, falls 03/22/18 18:11 Orthopedic Consult Routine Comment: Consulting Provider: Jasmin Adkins Consulting Physician: Jasmin Adkins Reason for Consult: left humerus fx Time Spent in preparation of Discharge (in minutes): 15 Diagnosis - Discharge Diagnosis (1) Contusion shoulder/arm Status: Acute (2) Syncope Status: Acute (3) Anemia Status: Acute (4) Aortic stenosis, severe Status: Acute (5) CKD (chronic kidney disease) Status: Acute (6) DVT prophylaxis Status: Acute (7) Diabetes type 2, uncontrolled Status: Acute Hospital Course - Lab Results Lab Results: Micro Results 03/23/18 18:25 Naris MRSA Culture (Admit) - Final MRSA NOT DETECTED 03/21/18 08:21 Naris MRSA Culture (Admit) - Final MRSA NOT DETECTED Most Recent Lab Values WBC 9.9 K/uL (4.8-10.8) 03/23/18 04:20 RBC 2.78 Mil/uL (3.80-5.20) L 03/23/18 04:20 Hgb 8.6 g/dL (12.0-16.0) L 03/23/18 04:20 Hct 26.4 % (34.0-47.0) L 03/23/18 04:20 MCV 94.8 fl (81.0-99.0) D 03/23/18 04:20 MCH 31.0 pg (27.0-31.0) 03/23/18 04:20 MCHC 32.7 g/dL (33.0-37.0) L 03/23/18 04:20 RDW 13.1 % (11.5-14.5) 03/23/18 04:20 Plt Count 192 K/uL (130-400) 03/23/18 04:20 MPV 8.5 fl (7.2-11.7) 03/23/18 04:20 Neut % (Auto) 73.0 % (50.0-75.0) 03/23/18 04:20 Lymph % (Auto) 16.7 % (20.0-40.0) L 03/23/18 04:20 Burnet % (Auto) 8.8 % (0.0-10.0) 03/23/18 04:20 Eos % (Auto) 1.1 % (0.0-4.0) 03/23/18 04:20 Baso % (Auto) 0.4 % (0.0-2.0) 03/23/18 04:20 Neut # (Auto) 7.2 K/uL (1.8-7.0) H 03/23/18 04:20 Lymph # (Auto) 1.6 K/uL (1.0-4.3) 03/23/18 04:20 Burnet # (Auto) 0.9 K/uL (0.0-0.8) H 03/23/18 04:20 Eos # (Auto) 0.1 K/uL (0.0-0.7) 03/23/18 04:20 Baso # (Auto) 0.0 K/uL (0.0-0.2) 03/23/18 04:20 Sodium 140 mmol/l (132-148) 03/23/18 04:20 Potassium 4.6 MMOL/L (3.6-5.0) 03/23/18 04:20 Chloride 113 mmol/L (98-107) H 03/23/18 04:20 Carbon Dioxide 18 mmol/L (22-30) L 03/23/18 04:20 Anion Gap 14 (10-20) 03/23/18 04:20 BUN 47 mg/dl (7-17) H 03/23/18 04:20 Creatinine 2.3 mg/dl (0.7-1.2) H 03/23/18 04:20 Est GFR ( Amer) 25 03/23/18 04:20 Est GFR (Non-Af Amer) 20 03/23/18 04:20 POC Glucose (mg/dL) 117 mg/dL (65-110) H 03/23/18 16:49 Random Glucose 126 mg/dL (65-105) H 03/23/18 04:20 Calcium 9.6 mg/dL (8.4-10.2) 03/23/18 04:20 Phosphorus 3.4 mg/dl (2.5-4.5) 03/23/18 04:20 Magnesium 1.7 MG/DL (1.6-2.3) 03/23/18 04:20 Total Bilirubin 0.5 mg/dl (0.2-1.3) 03/23/18 04:20 AST 21 U/L (14-36) 03/23/18 04:20 ALT 26 U/L (9-52) 03/23/18 04:20 Alkaline Phosphatase 43 U/L (38-126) 03/23/18 04:20 Total Creatine Kinase 167 U/L (30-135) H 03/21/18 18:54 Troponin I < 0.0120 ng/mL (0.00-0.120) 03/21/18 18:12 Total Protein 6.1 G/DL (6.3-8.2) L 03/23/18 04:20 Albumin 4.0 g/dL (3.5-5.0) 03/23/18 04:20 Globulin 2.2 gm/dL (2.2-3.9) 03/23/18 04:20 Albumin/Globulin Ratio 1.8 (1.0-2.1) 03/23/18 04:20 Blood Type A POSITIVE 03/21/18 18:46 Antibody Screen Negative 03/21/18 18:46 BBK History Checked Patient has bt 03/21/18 18:46 - Hospital Course Hospital Course: ortho cardio echo pain control Discharge Exam - Head Exam Head Exam: ATRAUMATIC, NORMOCEPHALIC Discharge Plan - Follow Up Plan Condition: FAIR Disposition: REHAB FACILITY/REHAB UNIT Instructions: Shoulder Blade Fracture (DC) Additional Instructions: final dx-humerous fx, syncope, chf, anemia-chronic, ckd doing well, stable, cleared by cardio for dc to [facility] will follow there and meds per med rec
== END 2018-03-23 17:58 | DRG 565 ==
LOC: H.ER 17:44 → H.ERHOLD 18:29 → H.ICU/CCU 20:11
PROVIDERS: ADMIT Family Medicine; ATTEND Family Medicine
DX: S42.112A Displaced fracture of body of scapula, left shoulder, initial encounter for closed fracture (principal); M48.54XA Collapsed vertebra, not elsewhere classified, thoracic region, initial encounter for fracture; R55 Syncope and collapse; I12.9 Hypertensive chronic kidney disease with stage 1 through stage 4 chronic kidney disease, or unspecified chronic kidney disease; E11.22 Type 2 diabetes mellitus with diabetic chronic kidney disease; I35.0 Nonrheumatic aortic (valve) stenosis; N18.3 Chronic kidney disease, stage 3 (moderate); E11.65 Type 2 diabetes mellitus with hyperglycemia; E78.00 Pure hypercholesterolemia, unspecified; G89.29 Other chronic pain; H35.30 Unspecified macular degeneration; Z88.0 Allergy status to penicillin; F32.9 Major depressive disorder, single episode, unspecified; K29.70 Gastritis, unspecified, without bleeding; M81.0 Age-related osteoporosis without current pathological fracture; D63.8 Anemia in other chronic diseases classified elsewhere; Z79.82 Long term (current) use of aspirin; M17.0 Bilateral primary osteoarthritis of knee; W19.XXXA Unspecified fall, initial encounter; Y92.009 Unspecified place in unspecified non-institutional (private) residence as the place of occurrence of the external cause; S42.132A Displaced fracture of coracoid process, left shoulder, initial encounter for closed fracture; S80.02XA Contusion of left knee, initial encounter; S80.01XA Contusion of right knee, initial encounter; Z53.20 Procedure and treatment not carried out because of patient's decision for unspecified reasons; M25.862 Other specified joint disorders, left knee; Z91.81 History of falling

== ENCOUNTER 2018-03-23 16:03 | Inpatient (IN) | payer MEDICARE ==
[2018-03-22 08:56] VITALS: BMI 31.6
--- NOTE | 2018-03-23 19:08 | PCM.OPOC ---
Physiatry Overall Plan of Care - Overall Plan of Care Estimated Length of Stay in Weeks: 2 Rehab Impairment: Mobility, Gait, Coordination Etiologic Diagnosis: Other (upper extremity fracture and debility) Rehab/Medical Prognosis: Fair - Anticipated Interventions Physical Therapy:: Yes Occupational Therapy:: Yes Speech Therapy:: No Recreational Therapy:: Yes - Therapy Goals Bed Mobility: Contact Guard Ambulation: Supervision Functional Positional Changes:: Supervision - Discharge Plan Identification of Barriers to Discharge: Home Situation Discharge Destination: Home
--- NOTE | 2018-03-23 19:10 | CP.PCM.CON ---
History of Present Illness - History of Present Illness History of Present Illness: Dr Verduzco PMR consultation on Thelma Esteves born, 1935 who has been admitted to [facility] for acute inpatient rehabilitation following a fall and left scapular fracture and noted thoracic compression fractures (age indeterminate). She is right hand dominant and although lives alone she notes an increased difficulty in doing all of her tasks. Very independent minded. She [address] [facility] [address] Arm is in a sling. Non-operative treatment Review of Systems - Constitutional Constitutional: absent: Chills, Daytime Sleepiness - EENT Eyes: absent: Change in Vision Ears: absent: Ear Discharge, Ear Pain Nose/Mouth/Throat: absent: Nasal Congestion, Nasal Discharge - Cardiovascular Cardiovascular: absent: Chest Pain - Respiratory Respiratory: absent: Dyspnea, Hemoptysis - Gastrointestinal Gastrointestinal: absent: Belching - Integumentary Integumentary: absent: Bleeding Lesions - Neurological Neurological: absent: Abnormal Movements, Burning Sensations, Radicular Pain, Vertigo - Psychiatric Psychiatric: absent: Anxiety Past Patient History - Past Medical History & Family History Past Medical History?: Yes - Past Social History Smoking Status: Never Smoked Alcohol: None Drugs: Denies Home Situation {Lives}: Alone - CARDIAC Hx Hypercholesterolemia: Yes Hx Hypertension: Yes - PULMONARY Hx Respiratory Disorders: No - NEUROLOGICAL Hx Neurological Disorder: No Hx Dizziness: Yes - HEENT Hx Macular Degeneration: Yes - RENAL Hx Chronic Kidney Disease: Yes - ENDOCRINE/METABOLIC Hx Endocrine Disorders: Yes Hx Diabetes Mellitus Type 2: Yes - HEMATOLOGICAL/ONCOLOGICAL Hx AIDS: No Hx Anemia: Yes Hx Blood Transfusions: Yes Hx Blood Transfusion Reaction: No Hx Human Immunodeficiency Virus (HIV): No - INTEGUMENTARY Hx Dermatological Problems: No - MUSCULOSKELETAL/RHEUMATOLOGICAL Hx Falls: Yes - GASTROINTESTINAL Hx Gastritis: Yes - GENITOURINARY/GYNECOLOGICAL Hx Genitourinary Disorders: No - PSYCHIATRIC Hx Substance Use: No - SURGICAL HISTORY Hx Surgeries: Yes Hx Hysterectomy: Yes Hx Orthopedic Surgery: Yes (right knee sx) - ANESTHESIA Hx Anesthesia: Yes Hx Anesthesia Reactions: No Meds Allergies/Adverse Reactions: Allergies Allergy/AdvReac Type Severity Reaction Status Date / Time Penicillins Allergy Mild RASH Verified 03/21/18 18:04 - Medications Medications: Current Medications Acetaminophen (Tylenol 325mg Tab) 650 mg PO Q4 PRN PRN Reason: Pain, moderate (4-7) Aspirin (Ecotrin) 81 mg PO Q72 [facility] Atorvastatin Calcium (Lipitor) 20 mg PO HS [facility] Calcium/Vitamin D (Citracal+D 315mg/250iu) 1 tab PO DAILY [facility] Home Med (Rosuvastatin Calcium [Crestor]) 10 mg PO HS [facility] Labetalol HCl (Trandate) 200 mg PO Q12 [facility] Oxycodone/Acetaminophen (Percocet 5/325 Mg Tab) 1 tab PO Q6 PRN PRN Reason: Pain, severe (8-10) Stop: 03/26/18 18:20 Pantoprazole Sodium (Protonix Ec Tab) 40 mg PO DAILY [facility] Physical Exam - Constitutional Appears: Non-toxic, No Acute Distress - Head Exam Head Exam: ATRAUMATIC, NORMAL INSPECTION, NORMOCEPHALIC - Eye Exam Eye Exam: EOMI - ENT Exam ENT Exam: Mucous Membranes Moist - Respiratory Exam Respiratory Exam: NORMAL BREATHING PATTERN - Cardiovascular Exam Cardiovascular Exam: REGULAR RHYTHM - GI/Abdominal Exam GI & Abdominal Exam: Normal Bowel Sounds - Extremities Exam Extremities exam: Negative for: calf tenderness - Neurological Exam Neurological exam: Alert, CN II-XII Intact, Oriented x3 - Psychiatric Exam Psychiatric exam: Normal Affect, Normal Mood - Skin Skin Exam: Warm Results - Vital Signs Recent Vital Signs: Last Vital Signs Temp Pulse 77 03/23/18 18:45 Resp 20 03/23/18 18:45 BP Pulse Ox Assessment & Plan - Assessment and Plan (Free Text) Assessment: Can move left hand/wrist without issue marked synovial joint changes R>L knee. She has had unsuccessful injections in the past significant djd of the fingers/hands as well PT/OT to continue to help increase functional independence Team conference for d/c planning Pain: controlled Vascular: no evidence of DVT GI: No evidence of constipation or diarrhea Patient is an excellent acute rehabilitation candidate and will have focused pain management, PT, OT and recreational therapy to help facilitate a safe and appropriate d/c plan Impairment code 08.9
[2018-03-24 06:37] LABS: BASO % 0.5 % (0.0-2.0); EOS # 0.1 K/uL (0.0-0.7); EOS % 1.6 % (0.0-4.0); HEMOGLOBIN 8.5 g/dL (12.0-16.0); LYMPH % 22.6 % (20.0-40.0); MEAN CELL VOLUME 92.3 fl (81.0-99.0); MEAN CORPUSCULAR HEMOGLOBIN 30.6 pg (27.0-31.0); MEAN CORPUSCULAR HGB CONC 33.2 g/dL (33.0-37.0); MEAN PLATELET VOLUME 8.4 fl (7.2-11.7); MONO # 0.8 K/uL (0.0-0.8); NEUT # 5.9 K/uL (1.8-7.0); NEUT % 66.3 % (50.0-75.0); RBC 2.78 Mil/uL (3.80-5.20); RED CELL DISTRIBUTION WIDTH 13.2 % (11.5-14.5); WHITE BLOOD COUNT 8.9 K/uL (4.8-10.8)
[2018-03-24 06:52] LABS: ALB/GLOB RATIO 1.7 (1.0-2.1); ALBUMIN 3.8 g/dL (3.5-5.0); CALCIUM 9.6 mg/dL (8.4-10.2)
[2018-03-24] MEDS: Citracal+D 315mg/250IU PO SCH (09:15)
[2018-03-24] MEDS: Pantoprazole 40 mg EC Tab PO SCH (09:15)
[2018-03-24] MEDS: Oxycodone/Acetaminophen 5/325 mg Tab PO PRN ×2 (09:17→21:47)
--- NOTE | 2018-03-24 10:19 | CP.PCM.HP ---
History of Present Illness - History of Present Illness History of Present Illness: pt admitted to [facility] ([facility] for disability, chronic ble pain, weakness. no f/c, n/v/d. bw noted. h/h and bun/cr stable. still w/ left shoulder pain after fx-conservative tx as per ortho. Present on Admission - Present on Admission Any Indicators Present on Admission: Yes History of Uncontrolled Diabetes: Yes Review of Systems - Musculoskeletal Musculoskeletal: As Per HPI, Arthralgias - Neurological Neurological: As Per HPI, Frequent Falls Past Patient History - Past Medical History & Family History Past Medical History?: Yes - Past Social History Smoking Status: Never Smoked Alcohol: None Drugs: Denies Home Situation {Lives}: Alone - CARDIAC Hx Hypercholesterolemia: Yes Hx Hypertension: Yes - PULMONARY Hx Respiratory Disorders: No - NEUROLOGICAL Hx Neurological Disorder: No Hx Dizziness: Yes - HEENT Hx Macular Degeneration: Yes - RENAL Hx Chronic Kidney Disease: Yes - ENDOCRINE/METABOLIC Hx Endocrine Disorders: Yes Hx Diabetes Mellitus Type 2: Yes - HEMATOLOGICAL/ONCOLOGICAL Hx AIDS: No Hx Anemia: Yes Hx Blood Transfusions: Yes Hx Blood Transfusion Reaction: No Hx Human Immunodeficiency Virus (HIV): No - INTEGUMENTARY Hx Dermatological Problems: No - MUSCULOSKELETAL/RHEUMATOLOGICAL Hx Falls: Yes - GASTROINTESTINAL Hx Gastritis: Yes - GENITOURINARY/GYNECOLOGICAL Hx Genitourinary Disorders: No - PSYCHIATRIC Hx Substance Use: No - SURGICAL HISTORY Hx Surgeries: Yes Hx Hysterectomy: Yes Hx Orthopedic Surgery: Yes (right knee sx) - ANESTHESIA Hx Anesthesia: Yes Hx Anesthesia Reactions: No Meds Allergies/Adverse Reactions: Allergies Allergy/AdvReac Type Severity Reaction Status Date / Time Penicillins Allergy Mild RASH Verified 03/21/18 18:04 Physical Exam - Constitutional Appears: Well, Non-toxic, No Acute Distress - Head Exam Head Exam: ATRAUMATIC, NORMAL INSPECTION, NORMOCEPHALIC - Eye Exam Eye Exam: EOMI, Normal appearance, PERRL Pupil Exam: NORMAL ACCOMODATION, PERRL - ENT Exam ENT Exam: Mucous Membranes Moist, Normal Exam - Neck Exam Neck exam: Positive for: Normal Inspection - Respiratory Exam Respiratory Exam: Clear to Auscultation Bilateral, NORMAL BREATHING PATTERN - Cardiovascular Exam Cardiovascular Exam: REGULAR RHYTHM, RRR, +S1, +S2, Systolic Murmur - GI/Abdominal Exam GI & Abdominal Exam: Normal Bowel Sounds, Soft. absent: Tenderness - Extremities Exam Extremities exam: Positive for: full ROM, normal capillary refill, normal inspection, pedal pulses present - Back Exam Back exam: NORMAL INSPECTION - Neurological Exam Neurological exam: Abnormal Gait, Alert, CN II-XII Intact, Oriented x3, Reflexes Normal - Psychiatric Exam Psychiatric exam: Normal Affect, Normal Mood - Skin Skin Exam: Dry, Intact, Normal Color, Warm Results - Vital Signs Recent Vital Signs: Last Vital Signs Temp 98.1 F 03/24/18 09:46 Pulse 65 03/24/18 09:46 Resp 18 03/24/18 09:46 BP 143/57 L 03/24/18 09:46 Pulse Ox 95 03/24/18 09:46 - Labs Result Diagrams: 03/24/18 05:20 03/24/18 05:20 Labs: Laboratory Results - last 24 hr 03/23/18 03/24/18 03/24/18 21:07 05:20 05:20 WBC 8.9 RBC 2.78 L Hgb 8.5 L Hct 25.7 L MCV 92.3 D MCH 30.6 MCHC 33.2 RDW 13.2 Plt Count 203 MPV 8.4 Neut % (Auto) 66.3 Lymph % (Auto) 22.6 Hart % (Auto) 9.0 Eos % (Auto) 1.6 Baso % (Auto) 0.5 Neut # (Auto) 5.9 Lymph # (Auto) 2.0 Hart # (Auto) 0.8 Eos # (Auto) 0.1 Baso # (Auto) 0.0 Sodium 139 Potassium 4.7 Chloride 115 H Carbon Dioxide 16 L Anion Gap 13 BUN 46 H Creatinine 2.2 H Est GFR ( Amer) 26 Est GFR (Non-Af Amer) 21 POC Glucose (mg/dL) 91 Random Glucose 120 H Calcium 9.6 Phosphorus 3.3 Magnesium 1.6 Total Bilirubin 0.5 AST 31 ALT 24 Alkaline Phosphatase 48 Total Protein 6.0 L Albumin 3.8 Globulin 2.2 Albumin/Globulin Ratio 1.7 Assessment & Plan (1) Humeral fracture Assessment and Plan: ortho pain control splint distal pms intact Status: Acute (2) Anemia Assessment and Plan: monitor likely anemia of chronic dz Status: Acute (3) Aortic stenosis Assessment and Plan: cardio nonsurgical, med management Status: Acute (4) CKD (chronic kidney disease) Assessment and Plan: monitor appears stable Status: Acute (5) DVT prophylaxis Assessment and Plan: scd and ae hose heparin Status: Acute Decision To Admit - Pt Status Changed To: Hospital Disposition Of: Inpatient - Admit Certification Admit to Inpatient:: After my assessment, the patient will require hospitalization for at least two midnights. This is because of the severity of symptoms shown, intensity of services needed, and/or the medical risk in this patient being treated as an outpatient. - . Bed Request Type: Acute Rehab Admitting Physician: Gopal Phoenix
[2018-03-24] MEDS ORDERED: Dexamethasone 4 mg/1 ml IAA ONE (17:44)
[2018-03-24] MEDS ORDERED: Triamcinolone Acetonide 40 mg/mL Inj IAA ONE (17:44)
[2018-03-24] MEDS ORDERED: Lidocaine 1% (10 ml) Inj IAA ONE (17:44)
--- NOTE | 2018-03-24 17:44 | CP.PCM.PN ---
Subjective - Date & Time of Evaluation Date of Evaluation: 03/24/18 Time of Evaluation: 17:43 - Subjective Subjective: Patient seen in the room. doing well wants to have the right knee injected. MRI had been performed today, results pending I will order meds pain is otherwise controlled in the left UE working hard in therapies. Objective - Vital Signs/Intake and Output Vital Signs (last 24 hours): Temp Pulse Resp BP Pulse Ox 98.1 F 65 18 143/57 L 95 03/24/18 09:46 03/24/18 09:46 03/24/18 09:46 03/24/18 09:46 03/24/18 09:46 - Medications Medications: Current Medications Acetaminophen (Tylenol 325mg Tab) 650 mg PO Q4 PRN PRN Reason: Pain, moderate (4-7) Last Admin: 03/24/18 15:18 Dose: 650 mg Aspirin (Ecotrin) 81 mg PO Q72 [facility] Atorvastatin Calcium (Lipitor) 20 mg PO HS [facility] Last Admin: 03/23/18 21:16 Dose: 20 mg Calcium/Vitamin D (Citracal+D 315mg/250iu) 1 tab PO DAILY [facility] Last Admin: 03/24/18 09:15 Dose: 1 tab Heparin Sodium (Porcine) (Heparin) 5,000 units SC Q12 [facility]; Protocol Labetalol HCl (Trandate) 200 mg PO Q12 [facility] Last Admin: 03/24/18 09:15 Dose: 200 mg Oxycodone/Acetaminophen (Percocet 5/325 Mg Tab) 1 tab PO Q6 PRN PRN Reason: Pain, severe (8-10) Stop: 03/26/18 18:20 Last Admin: 03/24/18 09:17 Dose: 1 tab Pantoprazole Sodium (Protonix Ec Tab) 40 mg PO DAILY [facility] Last Admin: 03/24/18 09:15 Dose: 40 mg - Labs Labs: 03/24/18 05:20 03/24/18 05:20
[2018-03-24] MEDS ORDERED: Lidocaine 1% Inj (20ml) IJ ONE (20:00)
--- NOTE | 2018-03-24 22:31 | CP.PCM.PN ---
Subjective - Date & Time of Evaluation Date of Evaluation: 03/24/18 Time of Evaluation: 14:00 - Subjective Subjective: Patient seen and examined OOB to wheelchair comfortable. Pain well controlled. Immobilized in sling but unable to sleep with sling. No other complaints. Objective - Vital Signs/Intake and Output Vital Signs (last 24 hours): Temp Pulse Resp BP Pulse Ox 97.0 F L 64 20 165/73 H 98 03/24/18 19:53 03/24/18 19:53 03/24/18 19:53 03/24/18 19:53 03/24/18 19:53 - Medications Medications: Current Medications Acetaminophen (Tylenol 325mg Tab) 650 mg PO Q4 PRN PRN Reason: Pain, moderate (4-7) Last Admin: 03/24/18 15:18 Dose: 650 mg Aspirin (Ecotrin) 81 mg PO Q72 [facility] Atorvastatin Calcium (Lipitor) 20 mg PO HS [facility] Last Admin: 03/24/18 21:47 Dose: 20 mg Calcium/Vitamin D (Citracal+D 315mg/250iu) 1 tab PO DAILY [facility] Last Admin: 03/24/18 09:15 Dose: 1 tab Heparin Sodium (Porcine) (Heparin) 5,000 units SC Q12 [facility]; Protocol Last Admin: 03/24/18 21:39 Dose: Not Given Labetalol HCl (Trandate) 200 mg PO Q12 [facility] Last Admin: 03/24/18 21:46 Dose: 200 mg Oxycodone/Acetaminophen (Percocet 5/325 Mg Tab) 1 tab PO Q6 PRN PRN Reason: Pain, severe (8-10) Stop: 03/26/18 18:20 Last Admin: 03/24/18 21:47 Dose: 1 tab Pantoprazole Sodium (Protonix Ec Tab) 40 mg PO DAILY [facility] Last Admin: 03/24/18 09:15 Dose: 40 mg - Labs Labs: 03/24/18 05:20 03/24/18 05:20 - Extremities Exam Additional comments: L shoulder: Donjoy sling intact mild swelling and ecchymosis posterolaterally about the scapula region diffuse tenderness posteriorly and laterally no lesions, no erythema ROM restricted due to fracture sensation and motor intact AXN/MN/UN/RN radial pulse intact comps soft NT R knee: mild swelling laterally, mild diffuse tenderness anteriorly mod varus alignment old anterolateral scar well healed FROM sensation intact SP/DP/TN motor intact EHL/FHL/TA/G/HS/Q pedal pulses intact calves soft NT L knee:mild swelling, mild diffuse tenderness anteriorly mild varus alignment FROM sensation intact SP/DP/TN motor intact EHL/FHL/TA/G/HS/Q pedal pulses intact calves soft NT Assessment and Plan (1) Cyst of left knee joint Assessment & Plan: Pending MRI Status: Acute (2) Left scapula fracture Assessment & Plan: -Shlouder immobilizer at all times -NWB LUE -pain control Status: Acute (3) Osteoarthritis of knees, bilateral Assessment & Plan: -PT/OT WBAT with cane to RUE -Will consider steroid injection to right knee if symptomatic Status: Acute
[2018-03-25] MEDS: Citracal+D 315mg/250IU PO SCH (09:14)
[2018-03-25] MEDS: Pantoprazole 40 mg EC Tab PO SCH (09:14)
--- NOTE | 2018-03-25 14:58 | CP.PCM.PN ---
Subjective - Date & Time of Evaluation Date of Evaluation: 03/25/18 Time of Evaluation: 14:00 - Subjective Subjective: Patient seen and examined OOB to chair comfortable. Pain better controlled today. No acute events overnight. No other complaints. Objective - Vital Signs/Intake and Output Vital Signs (last 24 hours): Temp Pulse Resp BP Pulse Ox 96.9 F L 60 22 139/67 96 03/25/18 08:24 03/25/18 08:24 03/25/18 08:24 03/25/18 08:24 03/25/18 08:24 - Medications Medications: Current Medications Acetaminophen (Tylenol 325mg Tab) 650 mg PO Q4 PRN PRN Reason: Pain, moderate (4-7) Last Admin: 03/25/18 09:14 Dose: 650 mg Aspirin (Ecotrin) 81 mg PO Q72 [facility] Atorvastatin Calcium (Lipitor) 20 mg PO HS [facility] Last Admin: 03/24/18 21:47 Dose: 20 mg Calcium/Vitamin D (Citracal+D 315mg/250iu) 1 tab PO DAILY [facility] Last Admin: 03/25/18 09:14 Dose: 1 tab Heparin Sodium (Porcine) (Heparin) 5,000 units SC Q12 [facility]; Protocol Last Admin: 03/25/18 10:19 Dose: Not Given Labetalol HCl (Trandate) 200 mg PO Q12 [facility] Last Admin: 03/25/18 09:14 Dose: 200 mg Oxycodone/Acetaminophen (Percocet 5/325 Mg Tab) 1 tab PO Q6 PRN PRN Reason: Pain, severe (8-10) Stop: 03/26/18 18:20 Last Admin: 03/24/18 21:47 Dose: 1 tab Pantoprazole Sodium (Protonix Ec Tab) 40 mg PO DAILY [facility] Last Admin: 03/25/18 09:14 Dose: 40 mg - Labs Labs: 03/24/18 05:20 03/24/18 05:20 - Extremities Exam Additional comments: L shoulder: Donjoy sling intact diffuse tenderness posteriorly and laterally no lesions, no erythema ROM restricted due to fracture sensation and motor intact AXN/MN/UN/RN radial pulse intact comps soft NT R knee: mild swelling laterally, mild diffuse tenderness anteriorly mod varus alignment old anterolateral scar well healed FROM sensation intact SP/DP/TN motor intact EHL/FHL/TA/G/HS/Q pedal pulses intact calves soft NT L knee:mild swelling, mild diffuse tenderness anteriorly mild varus alignment FROM sensation intact SP/DP/TN motor intact EHL/FHL/TA/G/HS/Q pedal pulses intact calves soft NT Assessment and Plan (1) Cyst of left knee joint Assessment & Plan: MRI shows subchondral cyst secondary to arthritis, no acute orthopedic intervention at this time WBAT pain control Status: Acute (2) Left scapula fracture Assessment & Plan: Sling immobilizer at all times NWB LUE Status: Acute (3) Osteoarthritis of knees, bilateral Assessment & Plan: Amenable to Steroid inject to right knee, Dr. Verduzco to perform PT/OT WBAT, strengthening and ROM exercises Status: Acute
--- NOTE | 2018-03-25 16:13 | MRI ---
MRI left knee History: Knee pain. Comparison: X-ray dated 03/22/2018 Findings: Nonvisualization of the anterior cruciate ligament at its expected location in the intercondylar notch suggestive for chronic complete tear. Marked thickening with increased signal seen within the posterior cruciate ligament suggestive for high-grade sprain with partial interstitial tearing. Complex tear involving the body and posterior horn of the medial meniscus with blunting of the tip of the body and posterior horn. Transverse linear oblique signal seen within the anterior horn of the medial meniscus extending to the articular surface. Linear increased signal seen within the anterior horn of the lateral meniscus extending to the articular surface consistent with a tear. Moderate grade sprain of the medial collateral ligament. Lateral collateral ligament complex structures are preserved. Mild distal quadriceps tendinopathy. Patellar tendon is preserved. Prominent cartilage thinning and loss overlying the patellar apex and medial patellar facet with signal change in the mid posterior patella suggestive for severe chondromalacia patella. Severe cartilage thinning and loss involving medial compartment of the femorotibial joint space with prominent signal change with subchondral cyst formation seen within the mid medial femoral condyle and mid medial proximal tibia at the articular surfaces suggestive for severe osteochondral change. Some cortical flattening and or cortical irregularity at the articular surfaces consistent with a severe medial compartment osteoarthrosis. Mild lateral compartment a cartilage thinning and loss. Moderate suprapatellar joint effusion. Moderate grade strain at the lateral patellar retinaculum. Impression: 1. 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 2. Nonvisualization of the anterior cruciate ligament at its expected location in the intercondylar notch suggestive for chronic complete tear. 3. Marked thickening with increased signal seen within the posterior cruciate ligament suggestive for high-grade sprain with partial interstitial tearing. 4. Complex tear involving the body and posterior horn of the medial meniscus with blunting of the tip of the body and posterior horn. Transverse linear oblique signal seen within the anterior horn of the medial meniscus extending to the articular surface. 5. Linear increased signal seen within the anterior horn of the lateral meniscus extending to the articular surface consistent with a tear. 6. Moderate grade sprain of the medial collateral ligament. 7. Mild distal quadriceps tendinopathy. 8. Prominent cartilage thinning and loss overlying the patellar apex and medial patellar facet with signal change in the mid posterior patella suggestive for severe chondromalacia patella. 9. Severe cartilage thinning and loss involving medial compartment of the femorotibial joint space with prominent signal change with subchondral cyst formation seen within the mid medial femoral condyle and mid medial proximal tibia at the articular surfaces suggestive for severe osteochondral change. Some cortical flattening and or cortical irregularity at the articular surfaces consistent with a severe medial compartment osteoarthrosis. 10. Mild lateral compartment a cartilage thinning and loss. 11. Moderate suprapatellar joint effusion. 12. Moderate grade strain at the lateral patellar retinaculum. A preliminary report was generated at 6:29 p.m. on 03/24/[address] Earl Caruso from [facility].
[2018-03-25] MEDS ORDERED: Povidone Iodine Topical 10% Sol TOP STA (16:27)
[2018-03-25] MEDS ORDERED: Povidone Iodine Topical 10% Sol ONE (16:31)
--- NOTE | 2018-03-25 16:36 | PCM.PROC ---
Procedures Attestation:: I certify that I have explained the specified Operation(s) or Procedure(s), risks, benefits and reasonable alternatives to the Patient and/or other person responsible. The opportunity was given to ask questions and all questions answered - Joint Aspiration/Injection Joint #1 Consent Obtained: Verbal Consent Time Out Performed: Yes Side of Body: Right Joint Aspirated: Knee Ultrasound Guidance Used: No Skin Prep: Povidone-Iodine Needle Size Used: 22 G Fluid Clarity: Clear Total Fluid Removed (mls): 4 Medication Injected: Triamcinolone Acetate, Methylprednisolone, Lidocaine Patient Tolorated Procedure: Well Complications: None
[2018-03-25] MEDS ORDERED: Lidocaine 1% (10 ml) Inj IAA ONE (16:37)
[2018-03-25] MEDS ORDERED: Dexamethasone 4 mg/1 ml IAA ONE (16:37)
[2018-03-25] MEDS ORDERED: Triamcinolone Acetonide 40 mg/mL Inj IAA ONE (16:37)
--- NOTE | 2018-03-25 16:37 | CP.PCM.PN ---
Subjective - Date & Time of Evaluation Date of Evaluation: 03/25/18 Time of Evaluation: 16:37 - Subjective Subjective: Patient seen in the room doing well in good spirits denies sob/cp left arm sling in place I performed a right knee injection and she was very happy with the procedure and wants the left knee done tomorrow. Objective - Vital Signs/Intake and Output Vital Signs (last 24 hours): Temp Pulse Resp BP Pulse Ox 96.9 F L 60 22 139/67 96 03/25/18 08:24 03/25/18 08:24 03/25/18 08:24 03/25/18 08:24 03/25/18 08:24 - Medications Medications: Current Medications Acetaminophen (Tylenol 325mg Tab) 650 mg PO Q4 PRN PRN Reason: Pain, moderate (4-7) Last Admin: 03/25/18 09:14 Dose: 650 mg Aspirin (Ecotrin) 81 mg PO Q72 [facility] Atorvastatin Calcium (Lipitor) 20 mg PO HS [facility] Last Admin: 03/24/18 21:47 Dose: 20 mg Calcium/Vitamin D (Citracal+D 315mg/250iu) 1 tab PO DAILY [facility] Last Admin: 03/25/18 09:14 Dose: 1 tab Heparin Sodium (Porcine) (Heparin) 5,000 units SC Q12 [facility]; Protocol Last Admin: 03/25/18 10:19 Dose: Not Given Labetalol HCl (Trandate) 200 mg PO Q12 [facility] Last Admin: 03/25/18 09:14 Dose: 200 mg Oxycodone/Acetaminophen (Percocet 5/325 Mg Tab) 1 tab PO Q6 PRN PRN Reason: Pain, severe (8-10) Stop: 03/26/18 18:20 Last Admin: 03/24/18 21:47 Dose: 1 tab Pantoprazole Sodium (Protonix Ec Tab) 40 mg PO DAILY [facility] Last Admin: 03/25/18 09:14 Dose: 40 mg - Labs Labs: 03/24/18 05:20 03/24/18 05:20
[2018-03-26] MEDS ORDERED: Dexamethasone 4 mg/1 ml IAA ONE (07:35)
[2018-03-26] MEDS ORDERED: Triamcinolone Acetonide 40 mg/mL Inj IAA ONE (07:43)
[2018-03-26] MEDS ORDERED: Lidocaine 1% (10 ml) Inj IAA ONE (07:45)
[2018-03-26] MEDS: Citracal+D 315mg/250IU PO SCH (08:42)
[2018-03-26] MEDS: Pantoprazole 40 mg EC Tab PO SCH (08:43)
--- NOTE | 2018-03-26 18:02 | CP.PCM.PN ---
Subjective - Date & Time of Evaluation Date of Evaluation: 03/26/18 Time of Evaluation: 18:00 - Subjective Subjective: Pt seen in the room had an excellent response to the right knee injection. very happy feels over 90 percent relief looking forward to today's left knee injection Objective - Vital Signs/Intake and Output Vital Signs (last 24 hours): Temp Pulse Resp BP Pulse Ox 98 F 88 20 140/80 98 03/26/18 08:00 03/26/18 08:00 03/26/18 08:00 03/26/18 08:00 03/26/18 08:00 - Medications Medications: Current Medications Acetaminophen (Tylenol 325mg Tab) 650 mg PO Q4 PRN PRN Reason: Pain, moderate (4-7) Aspirin (Ecotrin) 81 mg PO Q72 [facility] Last Admin: 03/26/18 08:42 Dose: 81 mg Atorvastatin Calcium (Lipitor) 20 mg PO HS [facility] Last Admin: 03/25/18 21:06 Dose: 20 mg Calcium/Vitamin D (Citracal+D 315mg/250iu) 1 tab PO DAILY [facility] Last Admin: 03/26/18 08:42 Dose: 1 tab Heparin Sodium (Porcine) (Heparin) 5,000 units SC Q12 [facility]; Protocol Last Admin: 03/26/18 10:11 Dose: Not Given Labetalol HCl (Trandate) 200 mg PO Q12 [facility] Last Admin: 03/26/18 08:42 Dose: 200 mg Oxycodone/Acetaminophen (Percocet 5/325 Mg Tab) 1 tab PO Q6 PRN PRN Reason: Pain, severe (8-10) Stop: 03/26/18 18:20 Last Admin: 03/24/18 21:47 Dose: 1 tab Pantoprazole Sodium (Protonix Ec Tab) 40 mg PO DAILY [facility] Last Admin: 03/26/18 08:43 Dose: 40 mg - Labs Labs: 03/24/18 05:20 03/24/18 05:20
--- NOTE | 2018-03-26 18:03 | PCM.PROC ---
Procedures Attestation:: I certify that I have explained the specified Operation(s) or Procedure(s), risks, benefits and reasonable alternatives to the Patient and/or other person responsible. The opportunity was given to ask questions and all questions answered - Joint Aspiration/Injection Joint #1 Consent Obtained: Verbal Consent Time Out Performed: Yes Side of Body: Left Joint Aspirated: Knee Ultrasound Guidance Used: No Skin Prep: Povidone-Iodine Needle Size Used: 22 G Total Fluid Removed (mls): 0 Medication Injected: Triamcinolone Acetate, Methylprednisolone, Lidocaine Patient Tolorated Procedure: Well Complications: None
[2018-03-26] MEDS: Lidocaine 1% Inj (20ml) IV ONE ×2 (18:11→18:13)
--- NOTE | 2018-03-27 08:30 | CP.PCM.PN ---
Subjective - Date & Time of Evaluation Date of Evaluation: 03/27/18 Time of Evaluation: 08:30 - Subjective Subjective: pt doing well. no f/c, n/v/d. had sob last night after therapy but w/o sob now. no distress. sitting in [facility]. doing well overall w/ PT, had joint injection w/ dr valdez yesterday. no c/o pain at present Objective - Vital Signs/Intake and Output Vital Signs (last 24 hours): Temp Pulse Resp BP Pulse Ox 97.2 F L 66 18 149/70 97 03/26/18 22:00 03/27/18 07:58 03/27/18 07:58 03/27/18 07:58 03/27/18 07:58 - Medications Medications: Current Medications Acetaminophen (Tylenol 325mg Tab) 650 mg PO Q4 PRN PRN Reason: Pain, moderate (4-7) Last Admin: 03/26/18 20:10 Dose: 650 mg Aspirin (Ecotrin) 81 mg PO Q72 [facility] Last Admin: 03/26/18 08:42 Dose: 81 mg Atorvastatin Calcium (Lipitor) 20 mg PO HS [facility] Last Admin: 03/26/18 21:10 Dose: 20 mg Calcium/Vitamin D (Citracal+D 315mg/250iu) 1 tab PO DAILY [facility] Last Admin: 03/26/18 08:42 Dose: 1 tab Heparin Sodium (Porcine) (Heparin) 5,000 units SC Q12 [facility]; Protocol Last Admin: 03/26/18 20:09 Dose: Not Given Labetalol HCl (Trandate) 200 mg PO Q12 [facility] Last Admin: 03/26/18 20:09 Dose: 200 mg Pantoprazole Sodium (Protonix Ec Tab) 40 mg PO DAILY [facility] Last Admin: 03/26/18 08:43 Dose: 40 mg - Labs Labs: 03/24/18 05:20 03/24/18 05:20 - Constitutional Appears: Well, Non-toxic - Head Exam Head Exam: ATRAUMATIC, NORMAL INSPECTION, NORMOCEPHALIC - Eye Exam Eye Exam: EOMI, Normal appearance, PERRL Pupil Exam: NORMAL ACCOMODATION, PERRL - ENT Exam ENT Exam: Mucous Membranes Moist, Normal Exam - Neck Exam Neck Exam: Full ROM, Normal Inspection. absent: Lymphadenopathy - Respiratory Exam Respiratory Exam: Clear to Ausculation Bilateral, NORMAL BREATHING PATTERN - Cardiovascular Exam Cardiovascular Exam: REGULAR RHYTHM, RRR, +S1, +S2, Murmur - GI/Abdominal Exam GI & Abdominal Exam: Soft, Normal Bowel Sounds. absent: Tenderness - Extremities Exam Extremities Exam: Full ROM, Normal Capillary Refill, Normal Inspection. absent: Joint Swelling, Pedal Edema - Back Exam Back Exam: NORMAL INSPECTION - Neurological Exam Neurological Exam: Abnormal Gait, Alert, Awake, CN II-XII Intact, Oriented x3 - Psychiatric Exam Psychiatric exam: Normal Affect, Normal Mood - Skin Skin Exam: Dry, Intact, Normal Color, Warm Assessment and Plan (1) Humeral fracture Status: Acute (2) Anemia Status: Acute (3) Aortic stenosis Status: Acute (4) CKD (chronic kidney disease) Status: Acute (5) DVT prophylaxis Status: Acute - Assessment and Plan (Free Text) Assessment: (1) Humeral fracture Assessment and Plan: ortho pain control splint distal pms intact Status: Acute (2) Anemia Assessment and Plan: monitor likely anemia of chronic dz Status: Acute (3) Aortic stenosis Assessment and Plan: cardio nonsurgical, med management Status: Acute (4) CKD (chronic kidney disease) Assessment and Plan: monitor appears stable Status: Acute (5) DVT prophylaxis Assessment and Plan: scd and ae hose heparin Status: Acute
[2018-03-27] MEDS: Citracal+D 315mg/250IU PO SCH (08:51)
[2018-03-27] MEDS: Pantoprazole 40 mg EC Tab PO SCH (08:51)
--- NOTE | 2018-03-27 15:51 | RAD ---
Date of service: 03/27/2018 HISTORY: SOB COMPARISON: No prior. TECHNIQUE: Chest PA and lateral FINDINGS: LUNGS: No active pulmonary disease. PLEURA: Small left pleural effusion on the lateral view. CARDIOVASCULAR: Aortic calcifications. Normal cardiac size. No pulmonary vascular congestion. OSSEOUS STRUCTURES: No significant abnormalities. VISUALIZED UPPER ABDOMEN: Normal. OTHER FINDINGS: None. IMPRESSION: Small left pleural effusion on the lateral view.
[2018-03-28] MEDS: Pantoprazole 40 mg EC Tab PO SCH (08:23)
[2018-03-28] MEDS: Citracal+D 315mg/250IU PO SCH (08:23)
--- NOTE | 2018-03-28 14:35 | CP.PCM.PN ---
Subjective - Date & Time of Evaluation Date of Evaluation: 03/28/18 Time of Evaluation: 14:34 - Subjective Subjective: pt doing well. no distress. itz pt/ot well. cxr negative. nof/c , n/v/d. pain controlled. refusing heparin Objective - Vital Signs/Intake and Output Vital Signs (last 24 hours): Temp Pulse Resp BP Pulse Ox 97 F L 65 20 144/74 99 03/28/18 09:48 03/28/18 09:48 03/28/18 09:48 03/28/18 09:48 03/28/18 09:48 - Medications Medications: Current Medications Acetaminophen (Tylenol 325mg Tab) 650 mg PO Q4 PRN PRN Reason: Pain, moderate (4-7) Last Admin: 03/27/18 08:54 Dose: 650 mg Aspirin (Ecotrin) 81 mg PO Q72 [facility] Last Admin: 03/26/18 08:42 Dose: 81 mg Atorvastatin Calcium (Lipitor) 20 mg PO HS [facility] Last Admin: 03/27/18 21:25 Dose: 20 mg Calcium/Vitamin D (Citracal+D 315mg/250iu) 1 tab PO DAILY [facility] Last Admin: 03/28/18 08:23 Dose: 1 tab Heparin Sodium (Porcine) (Heparin) 5,000 units SC Q12 [facility]; Protocol Last Admin: 03/28/18 08:25 Dose: Not Given Labetalol HCl (Trandate) 200 mg PO Q12 [facility] Last Admin: 03/28/18 08:25 Dose: 200 mg Pantoprazole Sodium (Protonix Ec Tab) 40 mg PO DAILY [facility] Last Admin: 03/28/18 08:23 Dose: 40 mg - Labs Labs: 03/24/18 05:20 03/24/18 05:20 - Constitutional Appears: Well, Non-toxic, No Acute Distress - Head Exam Head Exam: ATRAUMATIC, NORMAL INSPECTION, NORMOCEPHALIC - Eye Exam Eye Exam: EOMI, Normal appearance, PERRL Pupil Exam: NORMAL ACCOMODATION, PERRL - ENT Exam ENT Exam: Mucous Membranes Moist, Normal Exam - Neck Exam Neck Exam: Full ROM, Normal Inspection. absent: Lymphadenopathy - Respiratory Exam Respiratory Exam: Clear to Ausculation Bilateral, NORMAL BREATHING PATTERN - Cardiovascular Exam Cardiovascular Exam: REGULAR RHYTHM, RRR, +S1, +S2, Murmur - GI/Abdominal Exam GI & Abdominal Exam: Soft, Normal Bowel Sounds. absent: Tenderness - Rectal Exam Rectal Exam: NORMAL INSPECTION - Extremities Exam Extremities Exam: Full ROM, Normal Capillary Refill, Normal Inspection. absent: Joint Swelling, Pedal Edema - Back Exam Back Exam: NORMAL INSPECTION - Neurological Exam Neurological Exam: Abnormal Gait, Alert, Awake, CN II-XII Intact, Oriented x3 - Psychiatric Exam Psychiatric exam: Normal Affect, Normal Mood - Skin Skin Exam: Dry, Intact, Normal Color, Warm Assessment and Plan (1) Humeral fracture Status: Acute (2) Anemia Status: Acute (3) Aortic stenosis Status: Acute (4) CKD (chronic kidney disease) Status: Acute (5) DVT prophylaxis Status: Acute - Assessment and Plan (Free Text) Assessment: (1) Humeral fracture Assessment and Plan: ortho pain control splint distal pms intact Status: Acute (2) Anemia Assessment and Plan: monitor likely anemia of chronic dz am labs w/ iron panel and b12/folate Status: Acute (3) Aortic stenosis Assessment and Plan: cardio nonsurgical, med management Status: Acute (4) CKD (chronic kidney disease) Assessment and Plan: monitor am labs appears stable Status: Acute (5) DVT prophylaxis Assessment and Plan: scd and ae hose heparin-pt ahs been refusing Status: Acute
[2018-03-29 06:36] LABS: BASO % 0.2 % (0.0-2.0); EOS % 0.3 % (0.0-4.0); HEMOGLOBIN 8.7 g/dL (12.0-16.0); LYMPH # 2.2 K/uL (1.0-4.3); LYMPH % 17.6 % (20.0-40.0); MEAN CELL VOLUME 92.7 fl (81.0-99.0); MEAN CORPUSCULAR HEMOGLOBIN 30.2 pg (27.0-31.0); MEAN CORPUSCULAR HGB CONC 32.6 g/dL (33.0-37.0); MEAN PLATELET VOLUME 8.8 fl (7.2-11.7); MONO # 1.1 K/uL (0.0-0.8); MONO % 8.8 % (0.0-10.0); NEUT # 9.2 K/uL (1.8-7.0); NEUT % 73.1 % (50.0-75.0); RBC 2.88 Mil/uL (3.80-5.20); RED CELL DISTRIBUTION WIDTH 13.4 % (11.5-14.5); WHITE BLOOD COUNT 12.5 K/uL (4.8-10.8)
[2018-03-29 06:40] LABS: IRON 59 ug/dL (37-170)
[2018-03-29 06:46] LABS: ALB/GLOB RATIO 1.7 (1.0-2.1); CALCIUM 9.7 mg/dL (8.4-10.2)
[2018-03-29 06:49] LABS: % IRON SATURATION 17 % (20-55); TOTAL IRON BINDING CAPACITY 347 ug/dL (250-450)
[2018-03-29 07:19] LABS: FERRITIN 28.3 ng/Ml (11.1-264.0)
[2018-03-29] MEDS: Citracal+D 315mg/250IU PO SCH (08:12)
[2018-03-29] MEDS: Pantoprazole 40 mg EC Tab PO SCH (08:12)
--- NOTE | 2018-03-29 12:46 | CP.PCM.PN ---
Subjective - Date & Time of Evaluation Date of Evaluation: 03/29/18 Time of Evaluation: 10:00 - Subjective Subjective: Patient seen with PT. She says she is feeling better and progressing with PT. Denies numbness/tingling Review of Systems - Review of Systems All systems: reviewed and no additional remarkable complaints except - Cardiovascular Cardiovascular: UNREMARKABLE - Respiratory Respiratory: UNREMARKABLE - Gastrointestinal Gastrointestinal: UNREMARKABLE - Musculoskeletal Musculoskeletal: As Par HPI - Neurological Neurological: UNREMARKABLE - Hematologic/Lymphatic Hematologic: UNREMARKABLE Objective - Vital Signs/Intake and Output Vital Signs (last 24 hours): Temp Pulse Resp BP Pulse Ox 96.0 F L 61 18 152/71 H 98 03/29/18 08:05 03/29/18 08:05 03/29/18 08:05 03/29/18 08:05 03/29/18 08:05 - Medications Medications: Current Medications Acetaminophen (Tylenol 325mg Tab) 650 mg PO Q4 PRN PRN Reason: Pain, moderate (4-7) Last Admin: 03/29/18 08:13 Dose: 650 mg Aspirin (Ecotrin) 81 mg PO Q72 [facility] Last Admin: 03/29/18 08:12 Dose: 81 mg Atorvastatin Calcium (Lipitor) 20 mg PO HS [facility] Last Admin: 03/28/18 21:06 Dose: 20 mg Calcium/Vitamin D (Citracal+D 315mg/250iu) 1 tab PO DAILY [facility] Last Admin: 03/29/18 08:12 Dose: 1 tab Heparin Sodium (Porcine) (Heparin) 5,000 units SC Q12 [facility]; Protocol Last Admin: 03/29/18 08:11 Dose: Not Given Labetalol HCl (Trandate) 200 mg PO Q12 [facility] Last Admin: 03/29/18 08:12 Dose: 200 mg Pantoprazole Sodium (Protonix Ec Tab) 40 mg PO DAILY [facility] Last Admin: 03/29/18 08:12 Dose: 40 mg - Labs Labs: 03/29/18 05:45 03/29/18 05:45 - Constitutional Appears: Well, No Acute Distress - Head Exam Head Exam: ATRAUMATIC - Neck Exam Neck Exam: Full ROM, Normal Inspection - Respiratory Exam Respiratory Exam: NORMAL BREATHING PATTERN - Cardiovascular Exam Additional comments: +radial pulses - Extremities Exam Additional comments: left shoulder immobilizer intact - Neurological Exam Neurological Exam: Alert, Awake, Oriented x3 Neuro motor strength exam: Right Upper Extremity: 5 (+ROM fingers/wrist, sensation intact rad/uln/med nerve) - Psychiatric Exam Psychiatric exam: Normal Affect, Normal Mood - Skin Skin Exam: Dry, Intact, Normal Color, Warm Assessment and Plan (1) Left scapula fracture Assessment & Plan: non operative per Dr. Fernandes continue shoulder immobilizer at all times orthopedically stable f/u Dr. Fernandes upon d/c [facility] LUE d/w Dr. Fernandes, agrees with above Status: Acute
[2018-03-29 13:19] LABS: FOLATE 6.1 ng/mL
--- NOTE | 2018-03-29 17:59 | CP.PCM.PN ---
Subjective - Date & Time of Evaluation Date of Evaluation: 03/29/18 Time of Evaluation: 17:58 - Subjective Subjective: Patient seen in the room wanting to go home but I told her that I will discuss in teams. she is likely not ready but this will be discussed she did very well with the left knee injection as well with essentially complete resolution of pain Objective - Vital Signs/Intake and Output Vital Signs (last 24 hours): Temp Pulse Resp BP Pulse Ox 96.0 F L 61 18 152/71 H 98 03/29/18 08:05 03/29/18 08:05 03/29/18 08:05 03/29/18 08:05 03/29/18 08:05 - Medications Medications: Current Medications Acetaminophen (Tylenol 325mg Tab) 650 mg PO Q4 PRN PRN Reason: Pain(4-10) Aspirin (Ecotrin) 81 mg PO Q72 [facility] Last Admin: 03/29/18 08:12 Dose: 81 mg Atorvastatin Calcium (Lipitor) 20 mg PO HS [facility] Last Admin: 03/28/18 21:06 Dose: 20 mg Calcium/Vitamin D (Citracal+D 315mg/250iu) 1 tab PO DAILY [facility] Last Admin: 03/29/18 08:12 Dose: 1 tab Heparin Sodium (Porcine) (Heparin) 5,000 units SC Q12 [facility]; Protocol Last Admin: 03/29/18 08:11 Dose: Not Given Labetalol HCl (Trandate) 200 mg PO Q12 [facility] Last Admin: 03/29/18 08:12 Dose: 200 mg Pantoprazole Sodium (Protonix Ec Tab) 40 mg PO DAILY [facility] Last Admin: 03/29/18 08:12 Dose: 40 mg - Labs Labs: 03/29/18 05:45 03/29/18 05:45
[2018-03-30 06:24] LABS: BASO % 0.3 % (0.0-2.0); EOS # 0.1 K/uL (0.0-0.7); HEMOGLOBIN 8.4 g/dL (12.0-16.0); LYMPH # 2.5 K/uL (1.0-4.3); LYMPH % 22.2 % (20.0-40.0); MEAN CELL VOLUME 92.3 fl (81.0-99.0); MEAN CORPUSCULAR HEMOGLOBIN 30.2 pg (27.0-31.0); MEAN CORPUSCULAR HGB CONC 32.7 g/dL (33.0-37.0); MEAN PLATELET VOLUME 8.9 fl (7.2-11.7); MONO # 1.1 K/uL (0.0-0.8); MONO % 10.1 % (0.0-10.0); NEUT # 7.5 K/uL (1.8-7.0); NEUT % 66.4 % (50.0-75.0); NRBC % 0.2 % (0.0-0.0); RBC 2.77 Mil/uL (3.80-5.20); RED CELL DISTRIBUTION WIDTH 13.6 % (11.5-14.5); WHITE BLOOD COUNT 11.3 K/uL (4.8-10.8)
[2018-03-30 06:35] LABS: CALCIUM 9.6 mg/dL (8.4-10.2)
[2018-03-30] MEDS: Citracal+D 315mg/250IU PO SCH (08:29)
[2018-03-30] MEDS: Pantoprazole 40 mg EC Tab PO SCH (08:29)
--- NOTE | 2018-03-30 09:23 | CP.PCM.PN ---
Subjective - Date & Time of Evaluation Date of Evaluation: 03/30/18 Time of Evaluation: 09:22 - Subjective Subjective: pt doing well. no f/c, n/v/d. pt wishes to be dc home no complaints offered. pain controlled. bw noted Objective - Vital Signs/Intake and Output Vital Signs (last 24 hours): Temp Pulse Resp BP Pulse Ox 97 F L 62 20 162/68 H 66 L 03/30/18 08:55 03/30/18 07:30 03/30/18 07:30 03/30/18 08:28 03/30/18 08:28 - Medications Medications: Current Medications Acetaminophen (Tylenol 325mg Tab) 650 mg PO Q4 PRN PRN Reason: Pain(4-10) Last Admin: 03/30/18 08:55 Dose: 650 mg Aspirin (Ecotrin) 81 mg PO Q72 [facility] Last Admin: 03/29/18 08:12 Dose: 81 mg Atorvastatin Calcium (Lipitor) 20 mg PO HS [facility] Last Admin: 03/29/18 21:01 Dose: 20 mg Calcium/Vitamin D (Citracal+D 315mg/250iu) 1 tab PO DAILY [facility] Last Admin: 03/30/18 08:29 Dose: 1 tab Heparin Sodium (Porcine) (Heparin) 5,000 units SC Q12 [facility]; Protocol Last Admin: 03/30/18 08:30 Dose: Not Given Labetalol HCl (Trandate) 200 mg PO Q12 [facility] Last Admin: 03/30/18 08:29 Dose: 200 mg Pantoprazole Sodium (Protonix Ec Tab) 40 mg PO DAILY [facility] Last Admin: 03/30/18 08:29 Dose: 40 mg - Labs Labs: 03/30/18 05:30 03/30/18 05:30 - Constitutional Appears: Well, Non-toxic, No Acute Distress - Head Exam Head Exam: ATRAUMATIC, NORMAL INSPECTION, NORMOCEPHALIC - Eye Exam Eye Exam: EOMI, Normal appearance, PERRL Pupil Exam: NORMAL ACCOMODATION, PERRL - ENT Exam ENT Exam: Mucous Membranes Moist, Normal Exam - Neck Exam Neck Exam: Full ROM, Normal Inspection. absent: Lymphadenopathy - Respiratory Exam Respiratory Exam: Clear to Ausculation Bilateral, NORMAL BREATHING PATTERN - Cardiovascular Exam Cardiovascular Exam: REGULAR RHYTHM, RRR, +S1, +S2, Murmur - GI/Abdominal Exam GI & Abdominal Exam: Soft, Normal Bowel Sounds. absent: Tenderness - Extremities Exam Extremities Exam: Full ROM, Normal Capillary Refill, Normal Inspection. absent: Joint Swelling, Pedal Edema - Back Exam Back Exam: NORMAL INSPECTION - Neurological Exam Neurological Exam: Alert, Awake, CN II-XII Intact, Normal Gait, Oriented x3 - Psychiatric Exam Psychiatric exam: Normal Affect, Normal Mood - Skin Skin Exam: Dry, Intact, Normal Color, Warm Assessment and Plan (1) Humeral fracture Status: Acute (2) Anemia Status: Acute (3) Aortic stenosis Status: Acute (4) CKD (chronic kidney disease) Status: Acute (5) DVT prophylaxis Status: Acute - Assessment and Plan (Free Text) Assessment: (1) Humeral fracture Assessment and Plan: ortho pain control splint distal pms intact Status: Acute (2) Anemia Assessment and Plan: monitor likely anemia of chronic dz Status: Acute (3) Aortic stenosis Assessment and Plan: cardio nonsurgical, med management Status: Acute (4) CKD (chronic kidney disease) Assessment and Plan: monitor appears stable Status: Acute (5) DVT prophylaxis Assessment and Plan: scd and ae hose heparin Status: Acute [id number], monitor
--- NOTE | 2018-03-30 13:24 | PCM.PSYTMC ---
Acute Rehab Team Conference - - Vital Signs: Vital Signs (Last 8 Hours): Vital Signs 03/30/18 03/30/18 03/30/18 07:30 08:28 08:55 Temperature 97 F L 97 F L Pulse Rate 62 Respiratory 20 Rate Blood Pressure 188/75 H 162/68 H O2 Sat by Pulse 100 66 L Oximetry 03/30/18 09:00 Temperature 97 F L Pulse Rate 66 Respiratory 20 Rate Blood Pressure 162/68 H O2 Sat by Pulse Oximetry Pain: 0 - Precautions: Precautions: Fall Prevention - Medications/Other Issues: Comment: Refused heparin subq and scd boots at night despite explaination noted b/p 162/68 Lico Warren aware on labetolol q12h on plain tylenol for pain taking off sling at night - Consults: Comment: Dr Verduzco,Dr Davis - Toileting: Toileting: Contact Guard - Bladder Management: Bladder Pattern: Normal Voiding Method: Toilet Bladder Management: Supervision - Transfers: Transfers: Contact Guard - ADL's: ADL's: Moderate Assistance - Pain Management: Other Intervention:: on tylenol for pain - Patient/Family Teaching: Other Intervention:: the importance of keeping the sling and no weight bearing on the left arm,the importance of scd and heparin sub q ,safety/fall precaution - Goals/Time Frame: Comment: as per multidiciplinary plan of care - Provider: Registered Nurse:: Gale Marley Physical Therapy - Bed Mobility Bed Mobility: Verbal Cues, Minimal Assistance Comment: requires assistance for LEs - Transfers Wheelchair to Mat: Supervision, Verbal Cues, Contact Guard Sit to Stand: Supervision, Verbal Cues, Contact Guard Comment: cues for hand placement and placement of SPC - Ambulation Level of Assistance: Supervision, Contact Guard Distance (ft.): 100 Assistive Devices: Single point cane Comment: 75 feet x 6 trials with standing rest breaks as needed. -LUE shoulder sling in place. -patient very anxious with gait and noted to put cane into L hand and frequently reach for external environmental support such as plunkett, door frames and door handles. -requires CS/CG and constant re-assurance. -improved base of support but with increased lateral sway, increased time in double limb s upport phase and impaired heel to toe pattern with lack of toe off noted in BLE with BLE external rotation and R knee genu varum. -some SOB remains present during gait but patient denies any issues and o2 at 97% - Stair Negotiation Stairs: Level of Assistance: Not Tested Comment: no steps in community - Standing Balance Static Stand: Supervision - Pain Pain (assessed during therapy session): 0 Comment: denies pain during therapy session - Insight/Carryover Insight/Carryover: Fair - Patient/Family Education Comment: -use of call cherry for safety, wearing of brace for stabilization of fracture, safety, therapy schedule, therapy goals, use of device for safety and avoiding reaching for external portions of environment, mobility, transfers. -recommendation for assistance - Assessment/Plan Assessment: Ms. Esteves continues to demonstrate poor adherence to safety recommendations and is resistant to utilize recommended devices for mobility. Patient has history of frequent falls (>25 in last 6 months) and has impaired balance which places her at continued risk for falls especially with recent immobilization of LUE which thus changes her center of gravity due to inability to use UE for balance reactions. Pt requires CS/CG for all mobility and assistance for bed/mat mobility and other tasks that require bimanual usage. PT recommends home discharge with 24 hour hands on care for safety. PT recommends home PT. - Goals Timeframe: 7 days Goals: CG with bed/mat mobility. S with transfers with SPC. S to ambulate 150 feet with SPC - Provider Physical Therapist:: Thelma Sarah License Number:: [id number] Occupational Therapy - Arousal/Attention/Orientation Level of Consciousness: Awake, Alert Patient Orientation: Person, Place, Time - ADL/IADL Self Feeding: Supervision, Verbal Cues, Set-up Help Grooming: Supervision, Verbal Cues, Set-up Help Dressing-Upper Ext: Maximum Assistance Dressing-Lower Ext: Minimal Assistance, Moderate Assistance - Sitting Balance Static Sitting: Independent without upper extremity support Dynamic Sitting: Requires supervision, Contact Guard Assist - Transfers Wheelchair to Bed Transfers: Contact Guard, Minimal Assistance Toilet Transfers: Contact Guard, Minimal Assistance Tub Transfers: Contact Guard, Minimal Assistance - Wheelchair Management Level of Assistance: Supervision Distance (ft.): 75 - Upper Extremity Status Right Upper Extremity Comment: WFL Left Upper Extremity Comment: +immobilized in sling. +NWBing LUE. +mild edema noted in distal UE. +AROM wrist fingers and digits 3/5 - Pain Pain (assessed during therapy session): 3 Alleviating Techniques: Medication, Massage, Position Change Comment: + pain in LUE. +intermittent pain in B/L knees apporx 3-4/10 pain with activity - Insight/Carryover Insight/Carryover: Fair - Patient/Family Education Comment: weight bearing status, energy conservation/adaptive/compensatory technique/strateiges, lower body Adaptive equipment, dme education, fall prevention techniques - Assessment/Plan Assessment: Patient is an 83 year old female s/p L scapular fracture, patient presenting with decreased ROM/strength in LUE, nwbing /immobilization in sling, pain in L shoulder and b/l knees as well as impaired dynamic standing balance, impaired acctivty tolerance/unsteadiness on feet/lack of coordination, fear of falling and impaired knowledge of adaptive/compnesatory techniques. patient is doing well and is improving status with transfers/mobility, ub self care and lb self care. patient is still impaired by fear of falling and pain . recommended dme: tub transfer bench( pt owns), 3 in 1 commode, hipkit. patient is not receptive to using lb AE for lb bathing/dressing . will continue using lb ae to improve carryover prior to d/c. Recommend skilled IP OT services 5-6x/week to maximize functional independence with ADLs, transfers/mobility and iadls. recommend 24/7 supervision/assist upon d/c 2' pt's history of frequent falls - Goals Timeframe: 2 weeks Comment: recommend 24/7 supervision/assist upon d/c - Provider Occupational Therapist:: Mihaela Oliva License Number: [id number] Recreational Therapy - Participation Participation: Participates in Individual and/or Group Sessions, Monitors His/Her Own Leisure Time - Attendance Attendance: 3-5 times per week - Activities Leisure Activities: Socializing - Socialization Level of Socialization: Initiates/interacts freely with care givers and peer - Assessment Assessment/Plan: Pt is agreeable to participate in recreation therapy sessions following encouragement. Pt has participated in group bingo task with peers and was independent with task. Pt receives daily room visits for social support and encouragement to participate in sessions. Pt would benefit from participating in recreation therapy sessions to decrease anxiety and improve diversion. Will continue to encourage as well as provide leisure education. Problems Currently Limiting Participation: anxiety, pain, decrease leisure awareness level Goals and Time Frame: Pt will be encouraged to participate in 1:1 and group recreation therapy sessions 3-5x week to improve leisure awareness level, activity tolerance level, diversion from anxiety, and arousal level. - Provider Therapist: Kelly Luke Nutrition - Current Diet Current Diet/Supplement/Feedings: Moderate consistent CHO low fat low cholesterol diet - Appetite Percent Meal Consumed: 75-100% - Assessment/Goals/Time Frame Assessments/Goals/Time Frame: To follow as per nutrition protocol - Provider Provider: Angelique Ma Case Management - Psychosocial Assessment Support Systems: Anshu Esteves (son): Psychological Interventions/Needs: Patient is AAOx3, but has poor insight and insists on leaving sooner than is being recommended. Discharge Concerns: Patient has had several falls in a short period of time and wants to remain independent. Patient/Family Meeting: CM met with patient and rehab team. Intervention/Goal/Outcome: 1. Goal: intermittent supervision 2. Plan: home with home care ([facility]) 3. Contact friend who will be assisnting patient at home 4. DME needs 5. Schedule f/u appointments 6. Discuss discharge date in team conference as patient does not want to stay until the tentative discharge date that was calculated for her 7. contined emotional support 8. possible caregiver training (?) - Discharge Plan Discharge Plan: Home with services Home Services: [facility] - Provider Provider: Minnie Campbell License Number: [id number] Rehabilitation Plan - Treatment Plan Treatment Plan: Physical Therapy, Occupational Therapy, Dietary, Patient/Family Education - Discharge Plan Estimated Date of Discharge: 04/05/18 Discharge to: Home
--- NOTE | 2018-03-30 13:56 | CP.PCM.PN ---
Subjective - Date & Time of Evaluation Date of Evaluation: 03/30/18 Time of Evaluation: 13:55 - Subjective Subjective: Patient seen and doing ok no pain or sob left arm in sling discussed plans at length and she is open to someone at home but not LTC. Objective - Vital Signs/Intake and Output Vital Signs (last 24 hours): Temp Pulse Resp BP Pulse Ox 97 F L 66 20 162/68 H 66 L 03/30/18 09:00 03/30/18 09:00 03/30/18 09:00 03/30/18 09:00 03/30/18 08:28 - Medications Medications: Current Medications Acetaminophen (Tylenol 325mg Tab) 650 mg PO Q4 PRN PRN Reason: Pain(4-10) Last Admin: 03/30/18 08:55 Dose: 650 mg Aspirin (Ecotrin) 81 mg PO Q72 [facility] Last Admin: 03/29/18 08:12 Dose: 81 mg Atorvastatin Calcium (Lipitor) 20 mg PO HS [facility] Last Admin: 03/29/18 21:01 Dose: 20 mg Calcium/Vitamin D (Citracal+D 315mg/250iu) 1 tab PO DAILY [facility] Last Admin: 03/30/18 08:29 Dose: 1 tab Heparin Sodium (Porcine) (Heparin) 5,000 units SC Q12 [facility]; Protocol Last Admin: 03/30/18 08:30 Dose: Not Given Labetalol HCl (Trandate) 200 mg PO Q12 [facility] Last Admin: 03/30/18 08:29 Dose: 200 mg Pantoprazole Sodium (Protonix Ec Tab) 40 mg PO DAILY [facility] Last Admin: 03/30/18 08:29 Dose: 40 mg - Labs Labs: 03/30/18 05:30 03/30/18 05:30
[2018-03-30] MEDS ORDERED: Sod Polystyrene Sulf 15 gm/60 ml Susp PO ONE (14:32)
[2018-03-31 06:31] LABS: ALB/GLOB RATIO 1.8 (1.0-2.1); ALBUMIN 4.2 g/dL (3.5-5.0); BASO % 0.3 % (0.0-2.0); CALCIUM 9.8 mg/dL (8.4-10.2); EOS # 0.1 K/uL (0.0-0.7); EOS % 1.3 % (0.0-4.0); LYMPH # 2.5 K/uL (1.0-4.3); LYMPH % 21.9 % (20.0-40.0); MEAN CELL VOLUME 93.4 fl (81.0-99.0); MEAN CORPUSCULAR HEMOGLOBIN 30.2 pg (27.0-31.0); MEAN CORPUSCULAR HGB CONC 32.3 g/dL (33.0-37.0); MEAN PLATELET VOLUME 8.8 fl (7.2-11.7); MONO # 1.1 K/uL (0.0-0.8); MONO % 9.4 % (0.0-10.0); NEUT # 7.8 K/uL (1.8-7.0); NEUT % 67.1 % (50.0-75.0); RBC 2.97 Mil/uL (3.80-5.20); RED CELL DISTRIBUTION WIDTH 13.5 % (11.5-14.5); WHITE BLOOD COUNT 11.6 K/uL (4.8-10.8)
[2018-03-31] MEDS: Pantoprazole 40 mg EC Tab PO SCH (08:20)
[2018-03-31] MEDS: Citracal+D 315mg/250IU PO SCH (08:20)
[2018-03-31] MEDS ORDERED: Sod Polystyrene Sulf 15 gm/60 ml Susp PO ONE (16:30)
--- NOTE | 2018-03-31 17:25 | CP.PCM.PN ---
Subjective - Date & Time of Evaluation Date of Evaluation: 03/31/18 Time of Evaluation: 17:24 - Subjective Subjective: patient seen in the room doing ok knees are very good and she thanked me again no dizziness or chest pain looking into safe and appropriate discharge plans Objective - Vital Signs/Intake and Output Vital Signs (last 24 hours): Temp Pulse Resp BP Pulse Ox 97.7 F 67 19 162/69 H 97 03/31/18 08:45 03/31/18 08:45 03/31/18 08:45 03/31/18 08:45 03/31/18 08:45 - Medications Medications: Current Medications Acetaminophen (Tylenol 325mg Tab) 650 mg PO Q4 PRN PRN Reason: Pain(4-10) Last Admin: 03/31/18 08:23 Dose: 650 mg Aspirin (Ecotrin) 81 mg PO Q72 [facility] Last Admin: 03/29/18 08:12 Dose: 81 mg Atorvastatin Calcium (Lipitor) 20 mg PO HS [facility] Last Admin: 03/30/18 21:06 Dose: 20 mg Calcium/Vitamin D (Citracal+D 315mg/250iu) 1 tab PO DAILY [facility] Last Admin: 03/31/18 08:20 Dose: 1 tab Labetalol HCl (Trandate) 200 mg PO Q12 [facility] Last Admin: 03/31/18 08:21 Dose: 200 mg Pantoprazole Sodium (Protonix Ec Tab) 40 mg PO DAILY [facility] Last Admin: 03/31/18 08:20 Dose: 40 mg - Labs Labs: 03/31/18 05:30 03/31/18 05:30
[2018-04-01] MEDS: Pantoprazole 40 mg EC Tab PO SCH (08:46)
[2018-04-01] MEDS: Citracal+D 315mg/250IU PO SCH (08:46)
--- NOTE | 2018-04-01 09:09 | CP.PCM.PN ---
Subjective - Date & Time of Evaluation Date of Evaluation: 04/01/18 Time of Evaluation: 09:06 - Subjective Subjective: pt doing well. no f/c, n/v/d. am labs pending. rec'd kayexalate for hyperkalemia case d/c w/ son for dc thursday Objective - Vital Signs/Intake and Output Vital Signs (last 24 hours): Temp Pulse Resp BP Pulse Ox 97.9 F 64 20 143/72 97 04/01/18 08:16 04/01/18 08:16 04/01/18 08:16 04/01/18 08:45 04/01/18 08:16 - Medications Medications: Current Medications Acetaminophen (Tylenol 325mg Tab) 650 mg PO Q4 PRN PRN Reason: Pain(4-10) Last Admin: 04/01/18 08:45 Dose: 650 mg Aspirin (Ecotrin) 81 mg PO Q72 [facility] Last Admin: 04/01/18 08:46 Dose: 81 mg Atorvastatin Calcium (Lipitor) 20 mg PO HS [facility] Last Admin: 03/31/18 21:14 Dose: 20 mg Calcium/Vitamin D (Citracal+D 315mg/250iu) 1 tab PO DAILY [facility] Last Admin: 04/01/18 08:46 Dose: 1 tab Labetalol HCl (Trandate) 200 mg PO Q12 [facility] Last Admin: 04/01/18 08:46 Dose: 200 mg Pantoprazole Sodium (Protonix Ec Tab) 40 mg PO DAILY [facility] Last Admin: 04/01/18 08:46 Dose: 40 mg - Labs Labs: 03/31/18 05:30 03/31/18 05:30 - Constitutional Appears: Well, Non-toxic, No Acute Distress - Head Exam Head Exam: ATRAUMATIC, NORMAL INSPECTION, NORMOCEPHALIC - Eye Exam Eye Exam: EOMI, Normal appearance, PERRL Pupil Exam: NORMAL ACCOMODATION, PERRL - ENT Exam ENT Exam: Mucous Membranes Moist, Normal Exam - Neck Exam Neck Exam: Full ROM, Normal Inspection. absent: Lymphadenopathy - Respiratory Exam Respiratory Exam: Clear to Ausculation Bilateral, NORMAL BREATHING PATTERN - Cardiovascular Exam Cardiovascular Exam: REGULAR RHYTHM, RRR, +S1, +S2, Murmur - GI/Abdominal Exam GI & Abdominal Exam: Soft, Normal Bowel Sounds. absent: Tenderness - Extremities Exam Extremities Exam: Full ROM, Normal Capillary Refill, Normal Inspection. absent: Joint Swelling, Pedal Edema - Back Exam Back Exam: NORMAL INSPECTION - Neurological Exam Neurological Exam: Abnormal Gait, Alert, Awake, CN II-XII Intact, Oriented x3 - Psychiatric Exam Psychiatric exam: Normal Affect, Normal Mood - Skin Skin Exam: Dry, Intact, Normal Color, Warm Assessment and Plan (1) Humeral fracture Assessment & Plan: ortho pain control sling Status: Acute (2) Anemia Assessment & Plan: stable, will monitor Status: Acute (3) Aortic stenosis Assessment & Plan: stable cardio cont meds, bp control Status: Acute (4) CKD (chronic kidney disease) Assessment & Plan: stable, monitor Status: Acute (5) DVT prophylaxis Assessment & Plan: scd and aehose been refusing heparin Status: Acute (6) Hyperkalemia Assessment & Plan: kayexalte / and 12 am labs pending Status: Acute
--- NOTE | 2018-04-01 16:54 | CP.PCM.PN ---
Subjective - Date & Time of Evaluation Date of Evaluation: 04/01/18 Time of Evaluation: 11:00 - Subjective Subjective: Patient seen and examined with PT OOB to chair. Pain continues to improve. Right knee pain has significantly improved following steroid injection by Dr. Verduzco. No new complaints. Objective - Vital Signs/Intake and Output Vital Signs (last 24 hours): Temp Pulse Resp BP Pulse Ox 97.9 F 64 20 143/72 97 04/01/18 08:16 04/01/18 08:16 04/01/18 08:16 04/01/18 08:45 04/01/18 08:16 - Medications Medications: Current Medications Acetaminophen (Tylenol 325mg Tab) 650 mg PO Q4 PRN PRN Reason: Pain(4-10) Last Admin: 04/01/18 08:45 Dose: 650 mg Aspirin (Ecotrin) 81 mg PO Q72 [facility] Last Admin: 04/01/18 08:46 Dose: 81 mg Atorvastatin Calcium (Lipitor) 20 mg PO HS [facility] Last Admin: 03/31/18 21:14 Dose: 20 mg Calcium/Vitamin D (Citracal+D 315mg/250iu) 1 tab PO DAILY [facility] Last Admin: 04/01/18 08:46 Dose: 1 tab Labetalol HCl (Trandate) 200 mg PO Q12 [facility] Last Admin: 04/01/18 08:46 Dose: 200 mg Pantoprazole Sodium (Protonix Ec Tab) 40 mg PO DAILY [facility] Last Admin: 04/01/18 08:46 Dose: 40 mg - Labs Labs: 03/31/18 05:30 03/31/18 05:30 - Extremities Exam Additional comments: L shoulder: Donjoy sling intact mild tenderness posteriorly and laterally no lesions, no erythema ROM restricted due to fracture sensation and motor intact AXN/MN/UN/RN radial pulse intact comps soft NT R knee: mild swelling laterally, no tenderness anteriorly mod varus alignment old anterolateral scar well healed FROM sensation intact SP/DP/TN motor intact EHL/FHL/TA/G/HS/Q pedal pulses intact calves soft NT L knee:mild swelling, no tenderness anteriorly mild varus alignment FROM sensation intact SP/DP/TN motor intact EHL/FHL/TA/G/HS/Q pedal pulses intact calves soft NT Assessment and Plan (1) Cyst of left knee joint Assessment & Plan: stable subchondral cyst 2nd to arthritis WBAT Status: Acute (2) Left scapula fracture Assessment & Plan: Sling immobilizer at all times NWB LUE Status: Acute (3) Osteoarthritis of knees, bilateral Assessment & Plan: PT/OT WBAT with assistive device Status: Acute
--- NOTE | 2018-04-01 18:05 | CP.PCM.PN ---
Subjective - Date & Time of Evaluation Date of Evaluation: 04/01/18 Time of Evaluation: 18:04 - Subjective Subjective: Patient seen in the room in good spirits has agreed to 24 hour supervision remains happy with the knee injections and excellent relief continue current care Objective - Vital Signs/Intake and Output Vital Signs (last 24 hours): Temp Pulse Resp BP Pulse Ox 97.9 F 64 20 143/72 97 04/01/18 08:16 04/01/18 08:16 04/01/18 08:16 04/01/18 08:45 04/01/18 08:16 - Medications Medications: Current Medications Acetaminophen (Tylenol 325mg Tab) 650 mg PO Q4 PRN PRN Reason: Pain(4-10) Last Admin: 04/01/18 08:45 Dose: 650 mg Aspirin (Ecotrin) 81 mg PO Q72 [facility] Last Admin: 04/01/18 08:46 Dose: 81 mg Atorvastatin Calcium (Lipitor) 20 mg PO HS [facility] Last Admin: 03/31/18 21:14 Dose: 20 mg Calcium/Vitamin D (Citracal+D 315mg/250iu) 1 tab PO DAILY [facility] Last Admin: 04/01/18 08:46 Dose: 1 tab Labetalol HCl (Trandate) 200 mg PO Q12 [facility] Last Admin: 04/01/18 08:46 Dose: 200 mg Pantoprazole Sodium (Protonix Ec Tab) 40 mg PO DAILY [facility] Last Admin: 04/01/18 08:46 Dose: 40 mg - Labs Labs: 03/31/18 05:30 03/31/18 05:30
[2018-04-02 06:12] LABS: BASO # 0.1 K/uL (0.0-0.2); BASO % 0.5 % (0.0-2.0); EOS # 0.2 K/uL (0.0-0.7); EOS % 1.4 % (0.0-4.0); HEMOGLOBIN 8.1 g/dL (12.0-16.0); LYMPH # 2.4 K/uL (1.0-4.3); LYMPH % 21.1 % (20.0-40.0); MEAN CELL VOLUME 92.2 fl (81.0-99.0); MEAN CORPUSCULAR HEMOGLOBIN 29.7 pg (27.0-31.0); MEAN CORPUSCULAR HGB CONC 32.2 g/dL (33.0-37.0); MEAN PLATELET VOLUME 8.9 fl (7.2-11.7); MONO % 9.1 % (0.0-10.0); NEUT # 7.8 K/uL (1.8-7.0); NEUT % 67.9 % (50.0-75.0); RBC 2.74 Mil/uL (3.80-5.20); RED CELL DISTRIBUTION WIDTH 13.5 % (11.5-14.5); WHITE BLOOD COUNT 11.5 K/uL (4.8-10.8)
[2018-04-02 06:34] LABS: CALCIUM 9.6 mg/dL (8.4-10.2)
[2018-04-02] MEDS: Pantoprazole 40 mg EC Tab PO SCH (08:04)
[2018-04-02] MEDS: Citracal+D 315mg/250IU PO SCH (08:04)
[2018-04-03] MEDS: Citracal+D 315mg/250IU PO SCH (08:19)
[2018-04-03] MEDS: Pantoprazole 40 mg EC Tab PO SCH (08:19)
--- NOTE | 2018-04-03 14:23 | CP.PCM.PN ---
Subjective - Date & Time of Evaluation Date of Evaluation: 04/03/18 Time of Evaluation: 14:22 - Subjective Subjective: pt doing eell no fcnvd bw noted k normalized hgb stable no complaints or distress Objective - Vital Signs/Intake and Output Vital Signs (last 24 hours): Temp Pulse Resp BP Pulse Ox 98 F 78 20 130/80 99 04/03/18 13:01 04/03/18 13:01 04/03/18 13:01 04/03/18 13:01 04/03/18 08:49 - Medications Medications: Current Medications Acetaminophen (Tylenol 325mg Tab) 650 mg PO Q4 PRN PRN Reason: Pain(4-10) Last Admin: 04/03/18 12:01 Dose: 650 mg Aspirin (Ecotrin) [address] [facility] Last Admin: 04/01/18 08:46 Dose: 81 mg Atorvastatin Calcium (Lipitor) [address] [facility] Last Admin: 04/02/18 22:20 Dose: Not Given Calcium/Vitamin D (Citracal+D 315mg/250iu) [address] [facility] Last Admin: 04/03/18 08:19 Dose: 1 tab Labetalol HCl (Trandate) [address] [facility] Last Admin: 04/03/18 08:19 Dose: 200 mg Pantoprazole Sodium (Protonix Ec Tab) [address] [facility] Last Admin: 04/03/18 08:19 Dose: 40 mg - Labs Labs: 04/02/18 05:45 04/02/18 05:45 - Constitutional Appears: Well, Non-toxic, No Acute Distress - Head Exam Head Exam: ATRAUMATIC, NORMAL INSPECTION, NORMOCEPHALIC - Eye Exam Eye Exam: EOMI, Normal appearance, PERRL Pupil Exam: NORMAL ACCOMODATION, PERRL - ENT Exam ENT Exam: Mucous Membranes Moist, Normal Exam - Neck Exam Neck Exam: Full ROM, Normal Inspection. absent: Lymphadenopathy - Respiratory Exam Respiratory Exam: Clear to Ausculation Bilateral, NORMAL BREATHING PATTERN - Cardiovascular Exam Cardiovascular Exam: REGULAR RHYTHM, RRR, +S1, +S2, Murmur - GI/Abdominal Exam GI & Abdominal Exam: Soft, Normal Bowel Sounds. absent: Tenderness - Extremities Exam Extremities Exam: Full ROM, Normal Capillary Refill, Normal Inspection. absent: Joint Swelling, Pedal Edema Additional comments: lue in sling - Back Exam Back Exam: NORMAL INSPECTION - Neurological Exam Neurological Exam: Abnormal Gait, Alert, Awake, CN II-XII Intact, Oriented x3 - Psychiatric Exam Psychiatric exam: Normal Affect, Normal Mood - Skin Skin Exam: Dry, Intact, Normal Color, Warm Assessment and Plan (1) Humeral fracture Assessment & Plan: ortho, pain control sling rice Status: Acute (2) Anemia Assessment & Plan: cont to monitor, iron panel for am feosol Status: Acute (3) Aortic stenosis Assessment & Plan: murmur remains cont meds Status: Acute (4) CKD (chronic kidney disease) Assessment & Plan: monitor Status: Acute (5) DVT prophylaxis Assessment & Plan: scd and ae hose refusing heparin Status: Acute (6) Hyperkalemia Assessment & Plan: normalized monitor Status: Acute
--- NOTE | 2018-04-03 16:48 | CP.PCM.PN ---
Subjective - Date & Time of Evaluation Date of Evaluation: 04/03/18 Time of Evaluation: 16:47 - Subjective Subjective: Patient seen in the room son had visited earlier no distress looking forward to going home continue current care knee pain is still not an issue Objective - Vital Signs/Intake and Output Vital Signs (last 24 hours): Temp Pulse Resp BP Pulse Ox 98 F 78 20 130/80 99 04/03/18 13:01 04/03/18 13:01 04/03/18 13:01 04/03/18 13:01 04/03/18 08:49 - Medications Medications: Current Medications Acetaminophen (Tylenol 325mg Tab) 650 mg PO Q4 PRN PRN Reason: Pain(4-10) Last Admin: 04/03/18 12:01 Dose: 650 mg Aspirin (Ecotrin) 81 mg PO Q72 [facility] Last Admin: 04/01/18 08:46 Dose: 81 mg Atorvastatin Calcium (Lipitor) 20 mg PO HS [facility] Last Admin: 04/02/18 22:20 Dose: Not Given Calcium/Vitamin D (Citracal+D 315mg/250iu) 1 tab PO DAILY [facility] Last Admin: 04/03/18 08:19 Dose: 1 tab Labetalol HCl (Trandate) 200 mg PO Q12 [facility] Last Admin: 04/03/18 08:19 Dose: 200 mg Pantoprazole Sodium (Protonix Ec Tab) 40 mg PO DAILY [facility] Last Admin: 04/03/18 08:19 Dose: 40 mg - Labs Labs: 04/02/18 05:45 04/02/18 05:45
[2018-04-04] MEDS: Pantoprazole 40 mg EC Tab PO SCH (08:24)
[2018-04-04] MEDS: Citracal+D 315mg/250IU PO SCH (08:24)
[2018-04-05 01:36] VITALS: O2SAT 99
[2018-04-05 08:05] VITALS: BP 159/75; PULSE 61; RESP 19; TEMP 97.3
[2018-04-05] MEDS: Citracal+D 315mg/250IU PO SCH (08:22)
[2018-04-05] MEDS: Pantoprazole 40 mg EC Tab PO SCH (08:23)
--- NOTE | 2018-04-05 09:14 | CP.PCM.DIS ---
Provider - Provider Date of Admission: 03/23/18 18:07 Attending physician: Gopal Phoenix MD Consults: 03/23/18 18:21 Physiatry Consult Routine Comment: Consulting Provider: Anatoliy Verduzco Consulting Physician: Anatoliy Verduzco Reason for Consult: weakness, disability 03/23/18 18:31 Case Management Referral Routine Comment: Physician Instructions: Reason For Exam: Reason for Referral: Discharge Planning 03/25/18 07:55 Physician Consult Routine Comment: Consulting Provider: Jasmin Adkins Consulting Physician: Jasmin Adkins Reason for Consult: cont orthopedic mgmt 03/27/18 07:37 Social Work Referral Routine Comment: discharge planning Physician Instructions: Reason For Exam: social service consult Time Spent in preparation of Discharge (in minutes): 20 Diagnosis - Discharge Diagnosis (1) Humeral fracture Status: Acute (2) Anemia Status: Acute (3) Aortic stenosis Status: Acute (4) CKD (chronic kidney disease) Status: Acute (5) DVT prophylaxis Status: Acute (6) Hyperkalemia Status: Acute Hospital Course - Lab Results Lab Results: Most Recent Lab Values WBC 11.5 K/uL (4.8-10.8) H 04/02/18 05:45 RBC 2.74 Mil/uL (3.80-5.20) L 04/02/18 05:45 Hgb 8.1 g/dL (12.0-16.0) L 04/02/18 05:45 Hct 25.2 % (34.0-47.0) L 04/02/18 05:45 MCV 92.2 fl (81.0-99.0) 04/02/18 05:45 MCH 29.7 pg (27.0-31.0) 04/02/18 05:45 MCHC 32.2 g/dL (33.0-37.0) L 04/02/18 05:45 RDW 13.5 % (11.5-14.5) 04/02/18 05:45 Plt Count 240 K/uL (130-400) 04/02/18 05:45 MPV 8.9 fl (7.2-11.7) 04/02/18 05:45 Neut % (Auto) 67.9 % (50.0-75.0) 04/02/18 05:45 Lymph % (Auto) 21.1 % (20.0-40.0) 04/02/18 05:45 [place] % (Auto) 9.1 % (0.0-10.0) 04/02/18 05:45 Eos % (Auto) 1.4 % (0.0-4.0) 04/02/18 05:45 Baso % (Auto) 0.5 % (0.0-2.0) 04/02/18 05:45 Neut # (Auto) 7.8 K/uL (1.8-7.0) H 04/02/18 05:45 Lymph # (Auto) 2.4 K/uL (1.0-4.3) 04/02/18 05:45 [place] # (Auto) 1.0 K/uL (0.0-0.8) H 04/02/18 05:45 Eos # (Auto) 0.2 K/uL (0.0-0.7) 04/02/18 05:45 Baso # (Auto) 0.1 K/uL (0.0-0.2) 04/02/18 05:45 Sodium 142 mmol/l (132-148) 04/02/18 05:45 Potassium 4.9 MMOL/L (3.6-5.0) 04/02/18 05:45 Chloride 114 mmol/L (98-107) H 04/02/18 05:45 Carbon Dioxide 17 mmol/L (22-30) L 04/02/18 05:45 Anion Gap 16 (10-20) 04/02/18 05:45 BUN 59 mg/dl (7-17) H 04/02/18 05:45 Creatinine 1.8 mg/dl (0.7-1.2) H 04/02/18 05:45 Est GFR ( Amer) 33 04/02/18 05:45 Est GFR (Non-Af Amer) 27 04/02/18 05:45 POC Glucose (mg/dL) 101 mg/dL (65-110) 04/05/18 05:50 Random Glucose 118 mg/dL (65-105) H 04/02/18 05:45 Calcium 9.6 mg/dL (8.4-10.2) 04/02/18 05:45 Phosphorus 3.9 mg/dl (2.5-4.5) 03/29/18 05:45 Magnesium 1.5 MG/DL (1.6-2.3) L 03/29/18 05:45 Iron 59 ug/dL (37-170) 03/29/18 05:45 TIBC 347 ug/dL (250-450) 03/29/18 05:45 % Saturation 17 % (20-55) L 03/29/18 05:45 Transferrin 261.33 mg/dL (206-381) 03/29/18 05:45 Ferritin 28.3 ng/Ml (11.1-264.0) 03/29/18 05:45 Total Bilirubin 0.5 mg/dl (0.2-1.3) 03/31/18 05:30 AST 18 U/L (14-36) 03/31/18 05:30 ALT 50 U/L (9-52) 03/31/18 05:30 Alkaline Phosphatase 51 U/L (38-126) 03/31/18 05:30 Total Protein 6.4 G/DL (6.3-8.2) 03/31/18 05:30 Albumin 4.2 g/dL (3.5-5.0) 03/31/18 05:30 Globulin 2.3 gm/dL (2.2-3.9) 03/31/18 05:30 Albumin/Globulin Ratio 1.8 (1.0-2.1) 03/31/18 05:30 Vitamin B12 247 pg/mL (239-931) 03/29/18 05:45 Folate 6.1 ng/mL 03/29/18 05:45 - Hospital Course Hospital Course: pt/ot physiatry ortho, pain management feosol Discharge Exam - Head Exam Head Exam: ATRAUMATIC, NORMAL INSPECTION, NORMOCEPHALIC - Eye Exam Eye Exam: EOMI, Normal appearance, PERRL Pupil Exam: NORMAL ACCOMODATION, PERRL - Respiratory Exam Respiratory Exam: Clear to PA & Lateral, NORMAL BREATHING PATTERN, UNREMARKABLE - Cardiovascular Exam Cardiovascular Exam: REGULAR RHYTHM, Rubs, +S1, +S2 - GI/Abdominal Exam GI & Abdominal Exam: Normal Bowel Sounds, Soft, Unremarkable - Exam External exam: NORMAL EXTERNAL EXAM Speculum exam: NORMAL SPECULUM EXAM Bimanual exam: NORMAL BIMANUAL EXAM - Extremities Exam Extremities exam: full ROM, normal capillary refill, normal inspection, pedal pulses present - Neurological Exam Neurological exam: Alert, CN II-XII Intact, Normal Gait, Oriented x3, Reflexes Normal - Psychiatric Exam Psychiatric exam: Normal Affect, Normal Mood - Skin Skin Exam: Dry, Intact, Normal Color, Warm Discharge Plan - Discharge Medications Prescriptions: Ferrous Sulfate [Feosol] 325 mg PO BID #60 tab Labetalol [Trandate] 200 mg PO Q12 #60 tab - Follow Up Plan Condition: GOOD Disposition: HOME/ ROUTINE Instructions: Syncope (Fainting) (DC), Upper Arm Fracture Additional Instructions: final dx-syncope, left humerous fx, chronic joint pain doing well. for dc. no f/c, n/v/d. no compliants. spoke w/ son and new med rec d/c at length pt to f/u pmd
== END 2018-04-05 09:45 | disposition home or self-care (01) | DRG 561 ==
PROVIDERS: ADMIT Family Medicine; ATTEND Family Medicine
PROC: F07L6GZ Therapeutic Exercise Treatment of Musculoskeletal System - Lower Back / Lower Extremity using Aerobic Endurance and Conditioning Equipment (ICD-10-PCS; 2018-03-23)
PROC: F07Z8FZ Transfer Training Treatment using Assistive, Adaptive, Supportive or Protective Equipment (ICD-10-PCS; 2018-03-23)
PROC: F07Z5FZ Bed Mobility Treatment using Assistive, Adaptive, Supportive or Protective Equipment (ICD-10-PCS; 2018-03-23)
PROC: F07Z9FZ Gait Training/Functional Ambulation Treatment using Assistive, Adaptive, Supportive or Protective Equipment (ICD-10-PCS; 2018-03-23)
PROC: F08Z1FZ Dressing Techniques Treatment using Assistive, Adaptive, Supportive or Protective Equipment (ICD-10-PCS; 2018-03-23)
PROC: 0S9C3ZX Drainage of Right Knee Joint, Percutaneous Approach, Diagnostic (ICD-10-PCS; principal; 2018-03-25)
PROC: 0SJD3ZZ Inspection of Left Knee Joint, Percutaneous Approach (ICD-10-PCS; 2018-03-26)
DX: S42.102D Fracture of unspecified part of scapula, left shoulder, subsequent encounter for fracture with routine healing (principal); W19.XXXD Unspecified fall, subsequent encounter; D63.8 Anemia in other chronic diseases classified elsewhere; E11.22 Type 2 diabetes mellitus with diabetic chronic kidney disease; E78.00 Pure hypercholesterolemia, unspecified; H35.30 Unspecified macular degeneration; I12.9 Hypertensive chronic kidney disease with stage 1 through stage 4 chronic kidney disease, or unspecified chronic kidney disease; I35.0 Nonrheumatic aortic (valve) stenosis; N18.9 Chronic kidney disease, unspecified; K29.70 Gastritis, unspecified, without bleeding; M19.049 Primary osteoarthritis, unspecified hand; M25.862 Other specified joint disorders, left knee; M17.0 Bilateral primary osteoarthritis of knee; E87.5 Hyperkalemia; G89.29 Other chronic pain; Z88.0 Allergy status to penicillin; S42.309D Unspecified fracture of shaft of humerus, unspecified arm, subsequent encounter for fracture with routine healing; M48.54XD Collapsed vertebra, not elsewhere classified, thoracic region, subsequent encounter for fracture with routine healing

== ENCOUNTER 2018-07-13 13:47 | Inpatient (IN) | payer OTHER, MEDICARE ==
[2018-07-13 14:32] VITALS: BMI 29.6
[2018-07-14 07:05] LABS: HEMOGLOBIN 9.3 g/dL (12.0-16.0); MEAN CELL VOLUME 93.1 fl (81.0-99.0); MEAN CORPUSCULAR HEMOGLOBIN 30.4 pg (27.0-31.0); MEAN CORPUSCULAR HGB CONC 32.6 g/dL (33.0-37.0); RBC 3.06 Mil/uL (3.80-5.20); RED CELL DISTRIBUTION WIDTH 14.2 % (11.5-14.5); WHITE BLOOD COUNT 11.7 K/uL (4.8-10.8)
--- NOTE | 2018-07-14 08:55 | CP.PCM.HP ---
History of Present Illness - History of Present Illness History of Present Illness: pt admitted to [facility] for rehab post admission to [facility] for rle cellulitis. pt having some confusion and 1:1 at bedside. on zyprexa for mood stabilization am labsnoted. no distress. Present on Admission - Present on Admission Any Indicators Present on Admission: Yes History of Uncontrolled Diabetes: Yes Review of Systems - Review of Systems Systems not reviewed;Unavailable: Altered Mental Status Past Patient History - Past Medical History & Family History Past Medical History?: Yes - Past Social History Smoking Status: Never Smoked - CARDIAC Hx Hypercholesterolemia: Yes Hx Hypertension: Yes - PULMONARY Hx Respiratory Disorders: No - NEUROLOGICAL Hx Neurological Disorder: No Hx Dizziness: Yes - HEENT Hx Macular Degeneration: Yes - RENAL Hx Chronic Kidney Disease: Yes - ENDOCRINE/METABOLIC Hx Endocrine Disorders: Yes Hx Diabetes Mellitus Type 2: Yes - HEMATOLOGICAL/ONCOLOGICAL Hx AIDS: No Hx Anemia: Yes Hx Blood Transfusions: Yes Hx Blood Transfusion Reaction: No Hx Human Immunodeficiency Virus (HIV): No - INTEGUMENTARY Hx Dermatological Problems: No - MUSCULOSKELETAL/RHEUMATOLOGICAL Hx Falls: Yes - GASTROINTESTINAL Hx Gastritis: Yes - GENITOURINARY/GYNECOLOGICAL Hx Genitourinary Disorders: No - PSYCHIATRIC Hx Substance Use: No - SURGICAL HISTORY Hx Surgeries: Yes Hx Hysterectomy: Yes Hx Orthopedic Surgery: Yes (right knee sx) - ANESTHESIA Hx Anesthesia: Yes Hx Anesthesia Reactions: No Meds Allergies/Adverse Reactions: Allergies Allergy/AdvReac Type Severity Reaction Status Date / Time Penicillins Allergy Mild RASH Verified 07/13/18 14:33 Physical Exam - Constitutional Appears: Well, Non-toxic, No Acute Distress, Chronically Ill - Head Exam Head Exam: ATRAUMATIC, NORMAL INSPECTION, NORMOCEPHALIC - Eye Exam Eye Exam: EOMI, Normal appearance, PERRL Pupil Exam: NORMAL ACCOMODATION, PERRL - ENT Exam ENT Exam: Mucous Membranes Moist, Normal Exam - Neck Exam Neck exam: Positive for: Normal Inspection - Respiratory Exam Respiratory Exam: Clear to Auscultation Bilateral, NORMAL BREATHING PATTERN - Cardiovascular Exam Cardiovascular Exam: REGULAR RHYTHM, RRR, +S1, +S2, Systolic Murmur - GI/Abdominal Exam GI & Abdominal Exam: Normal Bowel Sounds, Soft. absent: Tenderness - Exam Bimanual exam: NORMAL BIMANUAL EXAM - Extremities Exam Extremities exam: Positive for: full ROM, normal capillary refill, normal inspection, pedal pulses present - Back Exam Back exam: NORMAL INSPECTION - Neurological Exam Neurological exam: Alert, CN II-XII Intact, Normal Gait, Oriented x3, Reflexes Normal - Psychiatric Exam Psychiatric exam: Normal Affect, Normal Mood - Skin Skin Exam: Dry, Intact, Normal Color, Warm Results - Vital Signs Recent Vital Signs: Last Vital Signs Temp 97.5 F L 07/14/18 08:16 Pulse 68 07/14/18 08:16 Resp 20 07/14/18 08:16 BP 129/60 07/14/18 08:16 Pulse Ox 96 07/14/18 08:16 - Labs Result Diagrams: 07/14/18 06:55 07/14/18 06:30 Labs: Laboratory Results - last 24 hr 07/13/18 07/13/18 07/14/18 17:24 20:24 06:11 WBC RBC Hgb Hct MCV MCH MCHC RDW Plt Count Sodium Potassium Chloride Carbon Dioxide Anion Gap BUN Creatinine Est GFR ( Amer) Est GFR (Non-Af Amer) POC Glucose (mg/dL) 178 H 144 H 103 Random Glucose Calcium 07/14/18 07/14/18 06:30 06:55 WBC 11.7 H RBC 3.06 L Hgb 9.3 L Hct 28.5 L MCV 93.1 MCH 30.4 MCHC 32.6 L RDW 14.2 Plt Count 241 Sodium 138 Potassium 4.1 Chloride 109 H Carbon Dioxide 19 L Anion Gap 14 BUN 34 H Creatinine 2.4 H Est GFR ( Amer) 23 Est GFR (Non-Af Amer) 19 POC Glucose (mg/dL) Random Glucose 99 Calcium 9.0 Assessment & Plan (1) Cellulitis, leg Assessment and Plan: [facility]. pod consult prn Status: Acute (2) Aortic stenosis, severe Assessment and Plan: s/p cath monitor for syncope or cp or other complaints Status: Acute (3) CKD (chronic kidney disease) Assessment and Plan: monitor bmp Status: Acute (4) DVT prophylaxis Assessment and Plan: scd and ae hose Status: Acute - Assessment and Plan (Free Text) Assessment: pt/ot Decision To Admit - Pt Status Changed To: Hospital Disposition Of: Inpatient - Admit Certification Admit to Inpatient:: After my assessment, the patient will require hospitalization for at least two midnights. This is because of the severity of symptoms shown, intensity of services needed, and/or the medical risk in this p atient being treated as an outpatient. - . Bed Request Type: Transitional Care Unit Admitting Physician: Gopal Phoenix
[2018-07-14] MEDS: Pantoprazole 40 mg EC Tab PO SCH (09:55)
--- NOTE | 2018-07-15 08:21 | CON ---
DATE: 07/14/2018 HISTORY OF PRESENT ILLNESS: This is an 83-year-old female patient, who was called to evaluate for urinary incontinence. The patient is on the transitional care floor. Apparently, she is having some phlebitis of the lower extremities. When I came to see the patient patiot, she has a one to one nurse attendance with her. Apparently, she is not completely there mentally. There was some level of confusion with this patient as she cannot carry a complete conversation. She has been trying to get out of bed and because of that being a risk to herself, there is now a 24-hour monitoring nurse, so I cannot get much information about urinary incontinence other than I see the situation here that she is not moving out of bed, and I think that when she has the urge, she probably just at that point empties her bladder. LABORATORY DATA: Looking at her chemistries, she appears to be somewhat hyperglycemic with significant elevations in blood glucose. There also appears to be some level of renal insufficiency with a BUN of 34 and a creatinine of 2.4. Blood moreno, she has a slightly elevated white count at 11.7 and she has a significant anemia of 9.3 hemoglobin and 28.5 hematocrit. RECOMMENDATIONS: There was no report that she is having any gross hematuria, so I think this is probably of chronic origin and at this point, urologically, I do not think that there is any significant recommendations to be made principally because I am not sure that the patient understands what she might be doing in terms of voiding and potentially just add medicines, especially the antimuscarinics might cause some further neurologic disorientation as these medicines are known to cross blood-brain barriers, so at this point, I would just manage conservatively with undergarments and pads as necessary and follow her evolving course while she is in the hospital. Paty Donahue MD
--- NOTE | 2018-07-15 08:24 | CP.PCM.PN ---
Subjective - Date & Time of Evaluation Date of Evaluation: 07/15/18 Time of Evaluation: 08:23 - Subjective Subjective: pt doing well, remains on 1:1 for safety. no f/c, n/v/d. somnolent at present perrn pt was up early and went back to bed. 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 Objective - Vital Signs/Intake and Output Vital Signs (last 24 hours): Temp Pulse Resp BP Pulse Ox 97.8 F 57 L 22 134/58 L 95 07/15/18 07:54 07/15/18 07:54 07/15/18 07:54 07/15/18 07:54 07/15/18 07:54 - Medications Medications: Current Medications Acetaminophen (Tylenol 325mg Tab) 650 mg PO Q4 PRN PRN Reason: Pain, moderate (4-7) Allopurinol (Zyloprim) 100 mg PO DAILY [facility] Last Admin: 07/14/18 09:56 Dose: 100 mg Amlodipine Besylate (Norvasc) 5 mg PO DAILY [facility] Last Admin: 07/14/18 09:56 Dose: 5 mg Aspirin (Ecotrin) 81 mg PO DAILY [facility] Last Admin: 07/14/18 09:55 Dose: 81 mg Atorvastatin Calcium (Lipitor) 80 mg PO HS [facility] Last Admin: 07/14/18 22:22 Dose: 80 mg Carvedilol (Coreg) 25 mg PO Q12 [facility] Last Admin: 07/14/18 22:22 Dose: 25 mg Clopidogrel Bisulfate (Plavix) 75 mg PO DAILY [facility] Last Admin: 07/14/18 09:56 Dose: 75 mg Cyanocobalamin (Vitamin B12 1000 Mcg Tab) 1,000 mcg PO DAILY [facility] Last Admin: 07/14/18 09:56 Dose: 1,000 mcg Ferrous Sulfate (Feosol) 325 mg PO BID [facility] Last Admin: 07/14/18 17:14 Dose: Not Given Folic Acid (Folic Acid) 1 mg PO DAILY [facility] Last Admin: 07/14/18 09:56 Dose: 1 mg Heparin Sodium (Porcine) (Heparin) 5,000 units SC Q12 [facility]; Protocol Last Admin: 07/14/18 22:21 Dose: 5,000 units Lactic Acid (Lac-Hydrin 12% Cream (140 G)) 1 ea TOP BID [facility] Losartan Potassium (Cozaar) 25 mg PO DAILY [facility] Last Admin: 07/14/18 09:55 Dose: 25 mg Olanzapine (Zyprexa) 2.5 mg PO DAILY [facility] Last Admin: 07/14/18 09:55 Dose: 2.5 mg Olanzapine (Zyprexa) 5 mg PO HS [facility] Last Admin: 07/14/18 22:22 Dose: 5 mg Pantoprazole Sodium (Protonix Ec Tab) 40 mg PO DAILY [facility] Last Admin: 07/14/18 09:55 Dose: 40 mg Torsemide (Demadex) 5 mg PO QOTHERDAY [facility] Last Admin: 07/14/18 09:56 Dose: 5 mg - Labs Labs: 07/14/18 06:55 07/14/18 06:30 - Constitutional Appears: Well, Non-toxic, No Acute Distress - Head Exam Head Exam: ATRAUMATIC, NORMAL INSPECTION, NORMOCEPHALIC - Eye Exam Eye Exam: EOMI, Normal appearance, PERRL Pupil Exam: NORMAL ACCOMODATION, PERRL - ENT Exam ENT Exam: Mucous Membranes Moist, Normal Exam - Neck Exam Neck Exam: Full ROM, Normal Inspection. absent: Lymphadenopathy - Respiratory Exam Respiratory Exam: Clear to Ausculation Bilateral, NORMAL BREATHING PATTERN - Cardiovascular Exam Cardiovascular Exam: REGULAR RHYTHM, RRR, +S1, +S2. absent: Murmur - GI/Abdominal Exam GI & Abdominal Exam: Soft, Normal Bowel Sounds. absent: Tenderness - Extremities Exam Extremities Exam: Full ROM, Normal Capillary Refill, Normal Inspection. absent: Joint Swelling, Pedal Edema - Back Exam Back Exam: NORMAL INSPECTION - Neurological Exam Neurological Exam: Alert, Awake, CN II-XII Intact, Normal Gait, Oriented x3 - Psychiatric Exam Psychiatric exam: Normal Affect, Normal Mood - Skin Skin Exam: Dry, Intact, Normal Color, Warm Assessment and Plan (1) Cellulitis, leg Status: Acute (2) Aortic stenosis, severe Status: Acute (3) CKD (chronic kidney disease) Status: Acute (4) DVT prophylaxis Status: Acute - Assessment and Plan (Free Text) Assessment: (1) Cellulitis, leg Assessment and Plan: anbx concluded at [place]. pod consult prn Status: Acute (2) Aortic stenosis, severe Assessment and Plan: s/p cath monitor for syncope or cp or other complaints Status: Acute (3) CKD (chronic kidney disease) Assessment and Plan: monitor bmp Status: Acute (4) DVT prophylaxis Assessment and Plan: scd and ae hose Status: Acute cont pt/ot
[2018-07-15] MEDS: Pantoprazole 40 mg EC Tab PO SCH (11:10)
[2018-07-15] MEDS: Ammonium Lactate 12% Cream (140 g) TOP SCH ×2 (11:24→17:00)
[2018-07-16] MEDS: Pantoprazole 40 mg EC Tab PO SCH (09:49)
[2018-07-16] MEDS: Ammonium Lactate 12% Cream (140 g) TOP SCH ×2 (09:49→17:07)
--- NOTE | 2018-07-16 12:17 | CP.PCM.CON ---
History of Present Illness - History of Present Illness History of Present Illness: consult requested for altered mental status pt admitted to [facility]cu for rehab post admission to [facility] for rle cellulitis. it was reported by staff that pt had episodes of confusion, on evaluation pt is cooperative, good eye contact, speech normal, reported mood is fine at home at times feels down due to being lonely yet tries to keep busy, no reported changes in sleep or appetite denied perceptual disturbances, pt alert awake oriented to person parially to place and time Past Patient History - Past Medical History & Family History Past Medical History?: Yes - Past Social History Smoking Status: Never Smoked - CARDIAC Hx Hypercholesterolemia: Yes Hx Hypertension: Yes - PULMONARY Hx Respiratory Disorders: No - NEUROLOGICAL Hx Neurological Disorder: No Hx Dizziness: Yes - HEENT Hx Macular Degeneration: Yes - RENAL Hx Chronic Kidney Disease: Yes - ENDOCRINE/METABOLIC Hx Endocrine Disorders: Yes Hx Diabetes Mellitus Type 2: Yes - HEMATOLOGICAL/ONCOLOGICAL Hx AIDS: No Hx Anemia: Yes Hx Blood Transfusions: Yes Hx Blood Transfusion Reaction: No Hx Human Immunodeficiency Virus (HIV): No - INTEGUMENTARY Hx Dermatological Problems: No - MUSCULOSKELETAL/RHEUMATOLOGICAL Hx Falls: Yes - GASTROINTESTINAL Hx Gastritis: Yes - GENITOURINARY/GYNECOLOGICAL Hx Genitourinary Disorders: No - PSYCHIATRIC Hx Substance Use: No - SURGICAL HISTORY Hx Surgeries: Yes Hx Hysterectomy: Yes Hx Orthopedic Surgery: Yes (right knee sx) - ANESTHESIA Hx Anesthesia: Yes Hx Anesthesia Reactions: No Meds Allergies/Adverse Reactions: Allergies Allergy/AdvReac Type Severity Reaction Status Date / Time Penicillins Allergy Mild RASH Verified 07/13/18 14:33 - Medications Medications: Current Medications Acetaminophen (Tylenol 325mg Tab) 650 mg PO Q4 PRN PRN Reason: Pain, moderate (4-7) Allopurinol (Zyloprim) 100 mg PO DAILY [facility] Last Admin: 07/16/18 09:49 Dose: 100 mg Amlodipine Besylate (Norvasc) 5 mg PO DAILY [facility] Last Admin: 07/16/18 10:17 Dose: 5 mg Aspirin (Ecotrin) 81 mg PO DAILY [facility] Last Admin: 07/16/18 09:49 Dose: 81 mg Atorvastatin Calcium (Lipitor) 80 mg PO HS [facility] Last Admin: 07/15/18 21:05 Dose: 80 mg Carvedilol (Coreg) 25 mg PO Q12 [facility] Last Admin: 07/16/18 10:18 Dose: 25 mg Clopidogrel Bisulfate (Plavix) 75 mg PO DAILY [facility] Last Admin: 07/16/18 09:46 Dose: 75 mg Cyanocobalamin (Vitamin B12 1000 Mcg Tab) 1,000 mcg PO DAILY [facility] Last Admin: 07/16/18 09:47 Dose: 1,000 mcg Ferrous Sulfate (Feosol) 325 mg PO BID [facility] Last Admin: 07/16/18 09:49 Dose: 325 mg Folic Acid (Folic Acid) 1 mg PO DAILY [facility] Last Admin: 07/16/18 09:49 Dose: 1 mg Heparin Sodium (Porcine) (Heparin) 5,000 units SC Q12 [facility]; Protocol Last Admin: 07/16/18 09:48 Dose: 5,000 units Lactic Acid (Lac-Hydrin 12% Cream (140 G)) 1 ea TOP BID [facility] Last Admin: 07/16/18 09:49 Dose: 1 applic Losartan Potassium (Cozaar) 25 mg PO DAILY [facility] Last Admin: 07/16/18 10:18 Dose: 25 mg Olanzapine (Zyprexa) 2.5 mg PO DAILY [facility] Last Admin: 07/16/18 09:48 Dose: 2.5 mg Olanzapine (Zyprexa) 5 mg PO HS [facility] Last Admin: 07/15/18 21:06 Dose: 5 mg Pantoprazole Sodium (Protonix Ec Tab) 40 mg PO DAILY [facility] Last Admin: 07/16/18 09:49 Dose: 40 mg Torsemide (Demadex) 5 mg PO QOTHERDAY [facility] Last Admin: 07/16/18 09:47 Dose: 5 mg Results - Vital Signs Recent Vital Signs: Last Vital Signs Temp 98.9 F 07/15/18 19:58 Pulse 59 L 07/16/18 10:18 Resp 20 07/15/18 19:58 BP 123/69 07/16/18 10:18 Pulse Ox 95 07/15/18 19:58 - Labs Result Diagrams: 07/14/18 06:55 07/14/18 06:30 Labs: Laboratory Results - last 24 hr 07/16/18 05:52 POC Glucose (mg/dL) 94 Assessment & Plan - Assessment and Plan (Free Text) Assessment: mild neurocognitive disorder Plan: possible past confusion due to admission to [facility] recommend lowering zyprexa to 2.5mg bid also recommend starting namenda 5mg qhs
[2018-07-16 17:33] VITALS: RESP 20
[2018-07-17] MEDS: Ammonium Lactate 12% Cream (140 g) TOP SCH ×2 (08:09→17:10)
[2018-07-17] MEDS: Pantoprazole 40 mg EC Tab PO SCH (08:14)
--- NOTE | 2018-07-17 08:17 | CP.PCM.PN ---
Subjective - Date & Time of Evaluation Date of Evaluation: 07/17/18 Time of Evaluation: 08:15 - Subjective Subjective: pt doing well. no complaints/distress. no f/c, n/v/d. per rn pt semi complaint w/ meds nad therapy-family aware. remains on 1:1 for safety psych consult appriciated. Objective - Vital Signs/Intake and Output Vital Signs (last 24 hours): Temp Pulse Resp BP Pulse Ox 97.8 F 60 20 114/68 97 07/16/18 22:20 07/16/18 22:20 07/16/18 22:20 07/16/18 22:20 07/16/18 22:20 - Medications Medications: Current Medications Acetaminophen (Tylenol 325mg Tab) 650 mg PO Q4 PRN PRN Reason: Pain, moderate (4-7) Allopurinol (Zyloprim) 100 mg PO DAILY [facility] Last Admin: 07/16/18 09:49 Dose: 100 mg Amlodipine Besylate (Norvasc) 5 mg PO DAILY [facility] Last Admin: 07/16/18 10:17 Dose: 5 mg Aspirin (Ecotrin) 81 mg PO DAILY [facility] Last Admin: 07/16/18 09:49 Dose: 81 mg Atorvastatin Calcium (Lipitor) 80 mg PO HS [facility] Last Admin: 07/16/18 22:34 Dose: 80 mg Carvedilol (Coreg) 25 mg PO Q12 [facility] Last Admin: 07/16/18 22:39 Dose: Not Given Clopidogrel Bisulfate (Plavix) 75 mg PO DAILY [facility] Last Admin: 07/16/18 09:46 Dose: 75 mg Cyanocobalamin (Vitamin B12 1000 Mcg Tab) 1,000 mcg PO DAILY [facility] Last Admin: 07/16/18 09:47 Dose: 1,000 mcg Ferrous Sulfate (Feosol) 325 mg PO BID [facility] Last Admin: 07/16/18 17:06 Dose: 325 mg Folic Acid (Folic Acid) 1 mg PO DAILY [facility] Last Admin: 07/16/18 09:49 Dose: 1 mg Heparin Sodium (Porcine) (Heparin) 5,000 units SC Q12 [facility]; Protocol Last Admin: 07/16/18 22:40 Dose: Not Given Lactic Acid (Lac-Hydrin 12% Cream (140 G)) 1 ea TOP BID [facility] Last Admin: 07/16/18 17:07 Dose: 1 applic Losartan Potassium (Cozaar) 25 mg PO DAILY [facility] Last Admin: 07/16/18 10:18 Dose: 25 mg Memantine (Namenda) 5 mg PO HS [facility] Last Admin: 07/16/18 22:40 Dose: Not Given Olanzapine (Zyprexa) 2.5 mg PO BID [facility] Last Admin: 07/16/18 22:41 Dose: Not Given Pantoprazole Sodium (Protonix Ec Tab) 40 mg PO DAILY [facility] Last Admin: 07/16/18 09:49 Dose: 40 mg Torsemide (Demadex) 5 mg PO QOTHERDAY [facility] Last Admin: 07/16/18 09:47 Dose: 5 mg - Labs Labs: 07/14/18 06:55 07/14/18 06:30 - Constitutional Appears: Well, Non-toxic, No Acute Distress, Chronically Ill - Head Exam Head Exam: ATRAUMATIC, NORMAL INSPECTION, NORMOCEPHALIC - Eye Exam Eye Exam: EOMI, Normal appearance, PERRL Pupil Exam: NORMAL ACCOMODATION, PERRL - ENT Exam ENT Exam: Mucous Membranes Moist, Normal Exam - Neck Exam Neck Exam: Full ROM, Normal Inspection. absent: Lymphadenopathy - Respiratory Exam Respiratory Exam: Clear to Ausculation Bilateral, NORMAL BREATHING PATTERN - Cardiovascular Exam Cardiovascular Exam: REGULAR RHYTHM, +S1, +S2, Murmur - GI/Abdominal Exam GI & Abdominal Exam: Soft, Normal Bowel Sounds. absent: Tenderness - Extremities Exam Extremities Exam: Full ROM, Normal Capillary Refill, Normal Inspection. absent: Joint Swelling, Pedal Edema - Back Exam Back Exam: NORMAL INSPECTION - Neurological Exam Neurological Exam: Abnormal Gait, Alert, Awake, CN II-XII Intact, Oriented x3 - Psychiatric Exam Psychiatric exam: Normal Affect, Normal Mood - Skin Skin Exam: Dry, Intact, Normal Color, Warm Assessment and Plan (1) Cellulitis, leg Assessment & Plan: wound care Status: Acute (2) Aortic stenosis, severe Assessment & Plan: monitor cont home meds Status: Acute (3) CKD (chronic kidney disease) Assessment & Plan: cont home meds monitor Status: Acute (4) DVT prophylaxis Assessment & Plan: scd and ae hose heparin Status: Acute - Assessment and Plan (Free Text) Assessment: cont all therapies-pt/ot
[2018-07-18 07:43] LABS: BASO # 0.1 K/uL (0.0-0.2); BASO % 1.2 % (0.0-2.0); EOS # 0.2 K/uL (0.0-0.7); EOS % 1.8 % (0.0-4.0); HEMOGLOBIN 9.6 g/dL (12.0-16.0); LYMPH # 1.9 K/uL (1.0-4.3); MEAN CELL VOLUME 93.8 fl (81.0-99.0); MEAN CORPUSCULAR HEMOGLOBIN 30.4 pg (27.0-31.0); MEAN CORPUSCULAR HGB CONC 32.5 g/dL (33.0-37.0); MEAN PLATELET VOLUME 9.2 fl (7.2-11.7); MONO # 0.7 K/uL (0.0-0.8); MONO % 8.2 % (0.0-10.0); NEUT # 5.5 K/uL (1.8-7.0); NEUT % 65.8 % (50.0-75.0); RBC 3.15 Mil/uL (3.80-5.20); WHITE BLOOD COUNT 8.4 K/uL (4.8-10.8)
[2018-07-18 08:34] LABS: ALB/GLOB RATIO 1.6 (1.0-2.1); ALBUMIN 3.6 g/dL (3.5-5.0)
[2018-07-18] MEDS: Pantoprazole 40 mg EC Tab PO SCH (09:52)
[2018-07-18] MEDS: Ammonium Lactate 12% Cream (140 g) TOP SCH ×2 (09:55→16:39)
[2018-07-18] MEDS: Sodium Chloride 0.9% 500 ML IV SCH ×4 (13:00→22:51)
[2018-07-19] MEDS: Sodium Chloride 0.9% 500 ML IV SCH ×4 (04:38→18:01)
[2018-07-19 06:11] LABS: BASO # 0.1 K/uL (0.0-0.2); BASO % 1.3 % (0.0-2.0); EOS # 0.1 K/uL (0.0-0.7); EOS % 1.7 % (0.0-4.0); LYMPH # 1.8 K/uL (1.0-4.3); LYMPH % 25.1 % (20.0-40.0); MEAN CELL VOLUME 93.8 fl (81.0-99.0); MEAN CORPUSCULAR HEMOGLOBIN 30.6 pg (27.0-31.0); MEAN CORPUSCULAR HGB CONC 32.6 g/dL (33.0-37.0); MONO # 0.6 K/uL (0.0-0.8); MONO % 8.8 % (0.0-10.0); NEUT # 4.5 K/uL (1.8-7.0); NEUT % 63.1 % (50.0-75.0); NRBC % 0.1 % (0.0-0.0); RBC 2.93 Mil/uL (3.80-5.20); WHITE BLOOD COUNT 7.1 K/uL (4.8-10.8)
[2018-07-19 06:21] LABS: ALB/GLOB RATIO 1.4 (1.0-2.1); CALCIUM 8.9 mg/dL (8.4-10.2)
[2018-07-19] MEDS: Ammonium Lactate 12% Cream (140 g) TOP SCH ×2 (09:02→17:57)
[2018-07-19] MEDS: Pantoprazole 40 mg EC Tab PO SCH (09:04)
[2018-07-19 09:12] LABS: IRON 65 ug/dL (37-170)
[2018-07-19 09:22] LABS: % IRON SATURATION 27 % (20-55); TOTAL IRON BINDING CAPACITY 240 ug/dL (250-450)
--- NOTE | 2018-07-19 12:40 | CP.PCM.CON ---
History of Present Illness - History of Present Illness History of Present Illness: I was called to see this patient for abnormal kidney function with rising BUN and creatinine. This patient transferred from another hospital for cellulitis and she is commended for further treatment and for debility and rehabilitation. And it was noted that the BUN and creatinine rising. Medication has been reviewed. Also noted that she has an reported of episode of confusion. She has seen by psychiatrist. And reviewed the record noted that she has baseline abnormal serum creatinine with CKD in the range of stage IV. Patient stated that she was diabetic but she does not take any more medication for diabetes. Past medical history hypertension and cellulitis chronic arthritis episode of confusion recently. Social history not contributory and the family history is as noted in the medical record. Medications has been reviewed Review of Systems - Constitutional Constitutional: absent: Anorexia, Chills - EENT Eyes: absent: Discharge Nose/Mouth/Throat: As Per HPI. absent: Epistaxis, Nasal Discharge - Cardiovascular Cardiovascular: absent: Acrocyanosis, Chest Pain, Dyspnea, Pedal Edema - Respiratory Respiratory: absent: Cough Past Patient History - Past Medical History & Family History Past Medical History?: Yes - Past Social History Smoking Status: Never Smoked - CARDIAC Hx Hypercholesterolemia: Yes Hx Hypertension: Yes - PULMONARY Hx Respiratory Disorders: No - NEUROLOGICAL Hx Neurological Disorder: No Hx Dizziness: Yes - HEENT Hx Macular Degeneration: Yes - RENAL Hx Chronic Kidney Disease: Yes - ENDOCRINE/METABOLIC Hx Endocrine Disorders: Yes Hx Diabetes Mellitus Type 2: Yes - HEMATOLOGICAL/ONCOLOGICAL Hx AIDS: No Hx Anemia: Yes Hx Blood Transfusions: Yes Hx Blood Transfusion Reaction: No Hx Human Immunodeficiency Virus (HIV): No - INTEGUMENTARY Hx Dermatological Problems: No - MUSCULOSKELETAL/RHEUMATOLOGICAL Hx Falls: Yes - GASTROINTESTINAL Hx Gastritis: Yes - GENITOURINARY/GYNECOLOGICAL Hx Genitourinary Disorders: No - PSYCHIATRIC Hx Substance Use: No - SURGICAL HISTORY Hx Surgeries: Yes Hx Hysterectomy: Yes Hx Orthopedic Surgery: Yes (right knee sx) - ANESTHESIA Hx Anesthesia: Yes Hx Anesthesia Reactions: No Meds Allergies/Adverse Reactions: Allergies Allergy/AdvReac Type Severity Reaction Status Date / Time Penicillins Allergy Mild RASH Verified 07/13/18 14:33 - Medications Medications: Current Medications Acetaminophen (Tylenol 325mg Tab) 650 mg PO Q4 PRN PRN Reason: Pain, moderate (4-7) Allopurinol (Zyloprim) 100 mg PO DAILY [facility] Last Admin: 07/19/18 09:03 Dose: 100 mg Amlodipine Besylate (Norvasc) 5 mg PO DAILY [facility] Last Admin: 07/19/18 09:03 Dose: 5 mg Aspirin (Ecotrin) 81 mg PO DAILY [facility] Last Admin: 07/19/18 09:03 Dose: 81 mg Atorvastatin Calcium (Lipitor) 80 mg PO HS [facility] Last Admin: 07/18/18 21:07 Dose: 80 mg Carvedilol (Coreg) 25 mg PO Q12 [facility] Last Admin: 07/19/18 09:06 Dose: 25 mg Clopidogrel Bisulfate (Plavix) 75 mg PO DAILY [facility] Last Admin: 07/19/18 09:03 Dose: 75 mg Cyanocobalamin (Vitamin B12 1000 Mcg Tab) 1,000 mcg PO DAILY [facility] Last Admin: 07/19/18 09:04 Dose: 1,000 mcg Ferrous Sulfate (Feosol) 325 mg PO BID [facility] Last Admin: 07/19/18 09:03 Dose: 325 mg Folic Acid (Folic Acid) 1 mg PO DAILY [facility] Last Admin: 07/19/18 09:04 Dose: 1 mg Heparin Sodium (Porcine) (Heparin) 5,000 units SC Q12 [facility]; Protocol Last Admin: 07/19/18 09:02 Dose: 5,000 units Sodium Chloride (Sodium Chloride 0.9%) 500 mls @ 125 mls/hr IV .Q4H [facility] Last Admin: 07/19/18 11:48 Dose: 125 mls/hr Lactic Acid (Lac-Hydrin 12% Cream (140 G)) 1 ea TOP BID [facility] Last Admin: 07/19/18 09:02 Dose: 1 applic Memantine (Namenda) 5 mg PO HS [facility] Last Admin: 07/18/18 21:06 Dose: 5 mg Olanzapine (Zyprexa) 2.5 mg PO BID [facility] Last Admin: 07/19/18 09:04 Dose: 2.5 mg Pantoprazole Sodium (Protonix Ec Tab) 40 mg PO DAILY [facility] Last Admin: 07/19/18 09:04 Dose: 40 mg Torsemide (Demadex) 5 mg PO QOTHERDAY [facility] Last Admin: 07/18/18 09:52 Dose: 5 mg Physical Exam - Constitutional Appears: No Acute Distress - Eye Exam Eye Exam: Conjunctival injection - ENT Exam ENT Exam: Mucous Membranes Moist - Neck Exam Neck exam: Negative for: Lymphadenopathy - Respiratory Exam Respiratory Exam: absent: Chest Wall Tenderness - Cardiovascular Exam Cardiovascular Exam: absent: Gallop, JVD, Rubs - GI/Abdominal Exam GI & Abdominal Exam: Normal Bowel Sounds. absent: Guarding - Extremities Exam Extremities exam: Negative for: calf tenderness - Back Exam Back exam: absent: CVA tenderness (L), CVA tenderness (R) - Neurological Exam Neurological exam: Alert - Psychiatric Exam Psychiatric exam: Normal Affect Results - Vital Signs Recent Vital Signs: Last Vital Signs Temp 98.3 F 07/19/18 08:09 Pulse 66 07/19/18 09:06 Resp 20 07/19/18 08:09 BP 158/56 H 07/19/18 09:06 Pulse Ox 97 07/19/18 08:09 - Labs Result Diagrams: 07/19/18 05:56 07/20/18 06:12 Labs: Laboratory Results - last 24 hr 07/18/18 07/19/18 07/19/18 18:47 05:56 05:56 WBC 7.1 RBC 2.93 L Hgb 9.0 L Hct 27.5 L MCV 93.8 MCH 30.6 MCHC 32.6 L RDW 15.0 H Plt Count 206 MPV 9.0 Neut % (Auto) 63.1 Lymph % (Auto) 25.1 [place] % (Auto) 8.8 Eos % (Auto) 1.7 Baso % (Auto) 1.3 Neut # (Auto) 4.5 Lymph # (Auto) 1.8 [place] # (Auto) 0.6 Eos # (Auto) 0.1 Baso # (Auto) 0.1 Sodium 136 Potassium 5.8 H Chloride 111 H Carbon Dioxide 18 L Anion Gap 13 BUN 76 H Creatinine 3.7 H Est GFR ( Amer) 14 Est GFR (Non-Af Amer) 12 POC Glucose (mg/dL) 169 H Random Glucose 97 Calcium 8.9 Phosphorus 5.8 H Magnesium 1.4 L Iron TIBC % Saturation Ferritin 281.0 H Total Bilirubin 0.4 AST 14 D ALT 26 Alkaline Phosphatase 50 Total Protein 5.1 L Albumin 3.0 L Globulin 2.1 L Albumin/Globulin Ratio 1.4 07/19/18 07/19/18 06:01 08:40 WBC RBC Hgb Hct MCV MCH MCHC RDW Plt Count MPV Neut % (Auto) Lymph % (Auto) [place] % (Auto) Eos % (Auto) Baso % (Auto) Neut # (Auto) Lymph # (Auto) [place] # (Auto) Eos # (Auto) Baso # (Auto) Sodium Potassium Chloride Carbon Dioxide Anion Gap BUN Creatinine Est GFR ( Amer) Est GFR (Non-Af Amer) POC Glucose (mg/dL) 90 Random Glucose Calcium Phosphorus Magnesium Iron 65 TIBC 240 L % Saturation 27 Ferritin Total Bilirubin AST ALT Alkaline Phosphatase Total Protein Albumin Globulin Albumin/Globulin Ratio Assessment & Plan (1) Chronic kidney disease, stage IV (severe) Assessment and Plan: Patient most likely has acute kidney injury superimposed on chronic kidney disease is stage IV. Etiology multifactorial and not sure what antibiotics she has been taking before. She was transferred from the other hospital. Hyperkalemia with a potassium today 5.8. Debility. And status post cellulitis which has been treated for Episode of confusion. My recommendation DC losartan And we will monitor the electrolyte and to give stat Kayexalate 30 g which has been given earlier Repeat BMP in the morning We will do ultrasound of the kidney Spot urine for sodium osmolarity and creatinine. Serum phosphorus and PTH. Protein to creatinine ratio. Status: Acute
--- NOTE | 2018-07-19 13:37 | CP.PCM.PN ---
Subjective - Date & Time of Evaluation Date of Evaluation: 07/19/18 Time of Evaluation: 13:37 - Subjective Subjective: pt doing well. no complaints. remains on 1:1 for safety am labs noted. case d/c w/ dr suarez who will put orders and adjust meds full note dictated [id number] Objective - Vital Signs/Intake and Output Vital Signs (last 24 hours): Temp Pulse Resp BP Pulse Ox 98.3 F 66 20 158/56 H 97 07/19/18 08:09 07/19/18 09:06 07/19/18 08:09 07/19/18 09:06 07/19/18 08:09 - Medications Medications: Current Medications Acetaminophen (Tylenol 325mg Tab) 650 mg PO Q4 PRN PRN Reason: Pain, moderate (4-7) Allopurinol (Zyloprim) 100 mg PO DAILY [facility] Last Admin: 07/19/18 09:03 Dose: 100 mg Amlodipine Besylate (Norvasc) 5 mg PO DAILY [facility] Last Admin: 07/19/18 09:03 Dose: 5 mg Aspirin (Ecotrin) 81 mg PO DAILY [facility] Last Admin: 07/19/18 09:03 Dose: 81 mg Atorvastatin Calcium (Lipitor) 80 mg PO HS [facility] Last Admin: 07/18/18 21:07 Dose: 80 mg Carvedilol (Coreg) 25 mg PO Q12 [facility] Last Admin: 07/19/18 09:06 Dose: 25 mg Clopidogrel Bisulfate (Plavix) 75 mg PO DAILY [facility] Last Admin: 07/19/18 09:03 Dose: 75 mg Cyanocobalamin (Vitamin B12 1000 Mcg Tab) 1,000 mcg PO DAILY [facility] Last Admin: 07/19/18 09:04 Dose: 1,000 mcg Ferrous Sulfate (Feosol) 325 mg PO BID [facility] Last Admin: 07/19/18 09:03 Dose: 325 mg Folic Acid (Folic Acid) 1 mg PO DAILY [facility] Last Admin: 07/19/18 09:04 Dose: 1 mg Heparin Sodium (Porcine) (Heparin) 5,000 units SC Q12 [facility]; Protocol Last Admin: 07/19/18 09:02 Dose: 5,000 units Sodium Chloride (Sodium Chloride 0.9%) 500 mls @ 125 mls/hr IV .Q4H [facility] Last Admin: 07/19/18 11:48 Dose: 125 mls/hr Lactic Acid (Lac-Hydrin 12% Cream (140 G)) 1 ea TOP BID [facility] Last Admin: 07/19/18 09:02 Dose: 1 applic Memantine (Namenda) 5 mg PO HS [facility] Last Admin: 07/18/18 21:06 Dose: 5 mg Olanzapine (Zyprexa) 2.5 mg PO BID [facility] Last Admin: 07/19/18 09:04 Dose: 2.5 mg Pantoprazole Sodium (Protonix Ec Tab) 40 mg PO DAILY [facility] Last Admin: 07/19/18 09:04 Dose: 40 mg Torsemide (Demadex) 5 mg PO QOTHERDAY [facility] Last Admin: 07/18/18 09:52 Dose: 5 mg - Labs Labs: 07/19/18 05:56 07/19/18 05:56 Assessment and Plan (1) Cellulitis, leg Status: Acute (2) Aortic stenosis, severe Status: Acute (3) CKD (chronic kidney disease) Status: Acute (4) DVT prophylaxis Status: Acute
[2018-07-19 21:29] LABS: CREATININE, RANDOM URINE 60.9 mg/dL
[2018-07-20 06:27] LABS: CALCIUM 8.5 mg/dL (8.4-10.2)
[2018-07-20] MEDS: Ammonium Lactate 12% Cream (140 g) TOP SCH ×2 (08:22→17:20)
[2018-07-20] MEDS: Pantoprazole 40 mg EC Tab PO SCH (08:23)
--- NOTE | 2018-07-20 09:09 | CP.PCM.PN ---
Subjective - Date & Time of Evaluation Date of Evaluation: 07/20/18 Time of Evaluation: 09:11 - Subjective Subjective: Patient sitting up awake and conscious not in acute distress. Vital signs noted to be stable No nausea no vomiting Objective - Vital Signs/Intake and Output Vital Signs (last 24 hours): Temp Pulse Resp BP Pulse Ox 98.7 F 65 20 170/74 H 96 07/20/18 08:14 07/20/18 08:23 07/20/18 08:14 07/20/18 08:23 07/20/18 08:14 - Medications Medications: Current Medications Acetaminophen (Tylenol 325mg Tab) 650 mg PO Q4 PRN PRN Reason: Pain, moderate (4-7) Allopurinol (Zyloprim) 100 mg PO DAILY [facility] Last Admin: 07/20/18 08:24 Dose: 100 mg Amlodipine Besylate (Norvasc) 5 mg PO DAILY [facility] Last Admin: 07/20/18 08:23 Dose: 5 mg Aspirin (Ecotrin) 81 mg PO DAILY [facility] Last Admin: 07/20/18 08:21 Dose: 81 mg Atorvastatin Calcium (Lipitor) 80 mg PO HS [facility] Last Admin: 07/19/18 21:22 Dose: 80 mg Carvedilol (Coreg) 25 mg PO Q12 [facility] Last Admin: 07/20/18 08:21 Dose: 25 mg Clopidogrel Bisulfate (Plavix) 75 mg PO DAILY [facility] Last Admin: 07/20/18 08:23 Dose: 75 mg Cyanocobalamin (Vitamin B12 1000 Mcg Tab) 1,000 mcg PO DAILY [facility] Last Admin: 07/20/18 08:24 Dose: 1,000 mcg Ferrous Sulfate (Feosol) 325 mg PO BID [facility] Last Admin: 07/20/18 08:29 Dose: 325 mg Folic Acid (Folic Acid) 1 mg PO DAILY [facility] Last Admin: 07/20/18 08:22 Dose: 1 mg Heparin Sodium (Porcine) (Heparin) 5,000 units SC Q12 [facility]; Protocol Last Admin: 07/20/18 08:22 Dose: 5,000 units Sodium Chloride (Sodium Chloride 0.9%) 500 mls @ 125 mls/hr IV .Q4H [facility] Last Admin: 07/19/18 18:01 Dose: 125 mls/hr Lactic Acid (Lac-Hydrin 12% Cream (140 G)) 1 ea TOP BID [facility] Last Admin: 07/20/18 08:22 Dose: 1 applic Memantine (Namenda) 5 mg PO HS [facility] Last Admin: 07/19/18 21:21 Dose: 5 mg Olanzapine (Zyprexa) 2.5 mg PO BID [facility] Last Admin: 07/20/18 08:24 Dose: 2.5 mg Pantoprazole Sodium (Protonix Ec Tab) 40 mg PO DAILY [facility] Last Admin: 07/20/18 08:23 Dose: 40 mg Torsemide (Demadex) 5 mg PO QOTHERDAY [facility] Last Admin: 07/18/18 09:52 Dose: 5 mg - Labs Labs: 07/19/18 05:56 07/20/18 06:12 - Constitutional Appears: No Acute Distress - Eye Exam Eye Exam: Conjunctival injection - ENT Exam ENT Exam: Mucous Membranes Moist - Respiratory Exam Respiratory Exam: NORMAL BREATHING PATTERN. absent: Chest Wall Tenderness, Rales - Cardiovascular Exam Cardiovascular Exam: absent: Gallop, JVD, Rubs - GI/Abdominal Exam GI & Abdominal Exam: Soft, Normal Bowel Sounds - Extremities Exam Extremities Exam: absent: Calf Tenderness - Back Exam Back Exam: absent: CVA tenderness (L), CVA tenderness (R) - Neurological Exam Neurological Exam: Alert - Psychiatric Exam Psychiatric exam: Normal Affect - Skin Skin Exam: absent: Cyanosis Assessment and Plan (1) Chronic kidney disease, stage IV (severe) Assessment & Plan: Patient most likely has acute kidney injury superimposed on chronic kidney disease is stage IV. Etiology multifactorial Hyperkalemia with a potassium today 5.3 Debility. And status post cellulitis which has been treated for Episode of confusion.Patient most likely has acute kidney injury superimposed on chronic kidney disease is stage IV. Plan Kidney function improving serum creatinine trending down. Potassium came down from 5.8 to 5.3, we will keep watching the repeat potassium tomorrow and to give 1 dose of Kayexalate 15 g today. No significant proteinuria as noted in the range of about 300 mg Status: Acute
[2018-07-20] MEDS ORDERED: Sod Polystyrene Sulf 15 gm/60 ml Susp PO ONE (09:13)
--- NOTE | 2018-07-20 14:11 | PN ---
DATE: 07/19/2018 SUBJECTIVE: The patient is seen, doing well. No complaint. Also doing well with physical therapy. The a.m. labs noted. Pending Nephro consult. Case was discussed with Nephrology, Dr. Tello. Case was also discussed with the patient's son, Anshu Esteves. REVIEW OF SYSTEMS: Negative. PHYSICAL EXAMINATION: GENERAL: Cognitively intact at her baseline. HEART: S1, S2. Murmur present. No rubs or gallops. LUNGS: Clear on auscultation in all soriano. ABDOMEN: Soft, nontender. Bowel sounds x4. EXTREMITIES: Distal pulses and motor sensation intact. Capillary refill is brisk. DIAGNOSES AND PLAN: 1. Cellulitis. Appears to be doing well. Continue wound care. 2. Deep vein thrombosis prophylaxis, scd and ae hose, heparin. 3. Deconditioning, physical therapy and occupational therapy. 4. Severe aortic stenosis. Continue medications. No intervention is requested by the family. 5. We will continue to follow. Case discussed with son and social work for disposition plan. THELMA Mills ELOY
[2018-07-20] MEDS: Sodium Chloride 0.9% 500 ML IV SCH (17:23)
[2018-07-21] MEDS: Sodium Chloride 0.9% 500 ML IV SCH ×4 (04:58→10:47)
[2018-07-21] MEDS: Ammonium Lactate 12% Cream (140 g) TOP SCH ×2 (08:18→16:28)
[2018-07-21] MEDS: Pantoprazole 40 mg EC Tab PO SCH (08:20)
--- NOTE | 2018-07-21 09:17 | CP.PCM.PN ---
Subjective - Date & Time of Evaluation Date of Evaluation: 07/21/18 Time of Evaluation: 09:16 - Subjective Subjective: pt doing well. off 1:1 calm and cooperative. labs noted. consults appriciated. no f/c, n/v/d. dc planning w/ sw and son cont pt/ot Objective - Vital Signs/Intake and Output Vital Signs (last 24 hours): Temp Pulse Resp BP Pulse Ox 98.6 F 74 20 149/68 96 07/21/18 07:52 07/21/18 08:20 07/21/18 07:52 07/21/18 08:20 07/21/18 07:52 - Medications Medications: Current Medications Acetaminophen (Tylenol 325mg Tab) 650 mg PO Q4 PRN PRN Reason: Pain, moderate (4-7) Allopurinol (Zyloprim) 100 mg PO DAILY [facility] Last Admin: 07/21/18 08:18 Dose: 100 mg Amlodipine Besylate (Norvasc) 5 mg PO DAILY [facility] Last Admin: 07/21/18 08:19 Dose: 5 mg Aspirin (Ecotrin) 81 mg PO DAILY [facility] Last Admin: 07/21/18 08:19 Dose: 81 mg Atorvastatin Calcium (Lipitor) 80 mg PO HS [facility] Last Admin: 07/20/18 21:09 Dose: 80 mg Carvedilol (Coreg) 25 mg PO Q12 [facility] Last Admin: 07/21/18 08:20 Dose: 25 mg Clopidogrel Bisulfate (Plavix) 75 mg PO DAILY [facility] Last Admin: 07/21/18 08:20 Dose: 75 mg Cyanocobalamin (Vitamin B12 1000 Mcg Tab) 1,000 mcg PO DAILY [facility] Last Admin: 07/21/18 08:18 Dose: 1,000 mcg Ferrous Sulfate (Feosol) 325 mg PO BID [facility] Last Admin: 07/21/18 08:17 Dose: 325 mg Folic Acid (Folic Acid) 1 mg PO DAILY [facility] Last Admin: 07/21/18 08:18 Dose: 1 mg Heparin Sodium (Porcine) (Heparin) 5,000 units SC Q12 [facility]; Protocol Last Admin: 07/21/18 08:18 Dose: 5,000 units Sodium Chloride (Sodium Chloride 0.9%) 500 mls @ 125 mls/hr IV .Q4H [facility] Last Admin: 07/21/18 05:45 Dose: 125 mls/hr Lactic Acid (Lac-Hydrin 12% Cream (140 G)) 1 ea TOP BID [facility] Last Admin: 07/21/18 08:18 Dose: 1 applic Memantine (Namenda) 5 mg PO HS [facility] Last Admin: 07/20/18 21:08 Dose: 5 mg Olanzapine (Zyprexa) 2.5 mg PO BID [facility] Last Admin: 07/21/18 08:19 Dose: 2.5 mg Pantoprazole Sodium (Protonix Ec Tab) 40 mg PO DAILY [facility] Last Admin: 07/21/18 08:20 Dose: 40 mg Torsemide (Demadex) 5 mg PO QOTHERDAY [facility] Last Admin: 07/18/18 09:52 Dose: 5 mg - Labs Labs: 07/19/18 05:56 07/20/18 06:12 - Constitutional Appears: Well, Non-toxic, No Acute Distress - Head Exam Head Exam: ATRAUMATIC, NORMAL INSPECTION, NORMOCEPHALIC - Eye Exam Eye Exam: EOMI, Normal appearance, PERRL Pupil Exam: NORMAL ACCOMODATION, PERRL - ENT Exam ENT Exam: Mucous Membranes Moist, Normal Exam - Neck Exam Neck Exam: Full ROM, Normal Inspection. absent: Lymphadenopathy - Respiratory Exam Respiratory Exam: Clear to Ausculation Bilateral, NORMAL BREATHING PATTERN - Cardiovascular Exam Cardiovascular Exam: REGULAR RHYTHM, RRR, +S1, +S2, Murmur - GI/Abdominal Exam GI & Abdominal Exam: Soft, Normal Bowel Sounds. absent: Tenderness - Extremities Exam Extremities Exam: Full ROM, Normal Capillary Refill, Normal Inspection. absent: Joint Swelling, Pedal Edema - Back Exam Back Exam: NORMAL INSPECTION - Neurological Exam Neurological Exam: Alert, Awake, CN II-XII Intact, Normal Gait, Oriented x3 - Psychiatric Exam Psychiatric exam: Normal Affect, Normal Mood - Skin Skin Exam: Dry, Intact, Normal Color, Warm Assessment and Plan (1) Cellulitis, leg Assessment & Plan: wound care doing well w/ pt/ot Status: Acute (2) Aortic stenosis, severe Assessment & Plan: cont home meds murmur remains. no dyspnea Status: Acute (3) CKD (chronic kidney disease) Assessment & Plan: nephro bw noted k noted-kayexalate given Status: Acute (4) DVT prophylaxis Assessment & Plan: scd and aeh ose heparin Status: Acute
[2018-07-21 12:53] LABS: CALCIUM 8.8 mg/dL (8.4-10.2)
--- NOTE | 2018-07-21 13:31 | CP.PCM.PN ---
Subjective - Date & Time of Evaluation Date of Evaluation: 07/21/18 Time of Evaluation: 13:31 - Subjective Subjective: Patient sitting in the chair awake and conscious and communicating well. Vital signs stable Chest pain no shortness of breath Objective - Vital Signs/Intake and Output Vital Signs (last 24 hours): Temp Pulse Resp BP Pulse Ox 98.6 F 74 20 149/68 96 07/21/18 07:52 07/21/18 08:20 07/21/18 07:52 07/21/18 08:20 07/21/18 07:52 - Medications Medications: Current Medications Acetaminophen (Tylenol 325mg Tab) 650 mg PO Q4 PRN PRN Reason: Pain, moderate (4-7) Last Admin: 07/21/18 10:46 Dose: 650 mg Allopurinol (Zyloprim) 100 mg PO DAILY [facility] Last Admin: 07/21/18 08:18 Dose: 100 mg Amlodipine Besylate (Norvasc) 5 mg PO DAILY [facility] Last Admin: 07/21/18 08:19 Dose: 5 mg Aspirin (Ecotrin) 81 mg PO DAILY [facility] Last Admin: 07/21/18 08:19 Dose: 81 mg Atorvastatin Calcium (Lipitor) 80 mg PO HS [facility] Last Admin: 07/20/18 21:09 Dose: 80 mg Carvedilol (Coreg) 25 mg PO Q12 [facility] Last Admin: 07/21/18 08:20 Dose: 25 mg Clopidogrel Bisulfate (Plavix) 75 mg PO DAILY [facility] Last Admin: 07/21/18 08:20 Dose: 75 mg Cyanocobalamin (Vitamin B12 1000 Mcg Tab) 1,000 mcg PO DAILY [facility] Last Admin: 07/21/18 08:18 Dose: 1,000 mcg Ferrous Sulfate (Feosol) 325 mg PO BID [facility] Last Admin: 07/21/18 08:17 Dose: 325 mg Folic Acid (Folic Acid) 1 mg PO DAILY [facility] Last Admin: 07/21/18 08:18 Dose: 1 mg Heparin Sodium (Porcine) (Heparin) 5,000 units SC Q12 [facility]; Protocol Last Admin: 07/21/18 08:18 Dose: 5,000 units Sodium Chloride (Sodium Chloride 0.9%) 500 mls @ 125 mls/hr IV .Q4H [facility] Last Admin: 07/21/18 10:47 Dose: 125 mls/hr Lactic Acid (Lac-Hydrin 12% Cream (140 G)) 1 ea TOP BID [facility] Last Admin: 07/21/18 08:18 Dose: 1 applic Memantine (Namenda) 5 mg PO HS [facility] Last Admin: 07/20/18 21:08 Dose: 5 mg Olanzapine (Zyprexa) 2.5 mg PO BID [facility] Last Admin: 07/21/18 08:19 Dose: 2.5 mg Pantoprazole Sodium (Protonix Ec Tab) 40 mg PO DAILY [facility] Last Admin: 07/21/18 08:20 Dose: 40 mg Torsemide (Demadex) 5 mg PO QOTHERDAY [facility] Last Admin: 07/18/18 09:52 Dose: 5 mg - Labs Labs: 07/19/18 05:56 07/21/18 12:00 - Constitutional Appears: No Acute Distress - Eye Exam Eye Exam: Conjunctival injection - ENT Exam ENT Exam: absent: Mucous Membranes Moist - Neck Exam Neck Exam: absent: Lymphadenopathy - Respiratory Exam Respiratory Exam: NORMAL BREATHING PATTERN. absent: Chest Wall Tenderness - Cardiovascular Exam Cardiovascular Exam: absent: Gallop, JVD, Rubs - GI/Abdominal Exam GI & Abdominal Exam: Soft, Normal Bowel Sounds - Extremities Exam Extremities Exam: absent: Calf Tenderness - Back Exam Back Exam: absent: CVA tenderness (L), CVA tenderness (R) - Neurological Exam Neurological Exam: Alert - Psychiatric Exam Psychiatric exam: Normal Affect - Skin Skin Exam: absent: Cyanosis Assessment and Plan (1) Chronic kidney disease, stage IV (severe) Assessment & Plan: Patient most likely has acute kidney injury superimposed on chronic kidney disease is stage IV. Etiology multifactorial Hyperkalemia corrected Debility. And status post cellulitis Episode of confusion. Anemia hemoglobin 9.0 Recommendation Serum creatinine trending down and improving and she appears to be recovering from acute kidney injury Serum electrolytes in particular potassium is corrected The kidney report depending Suggest to do serum iron and ferritin level and to start EPO assuming her anemia related to chronic kidney disease and other etiology has been ruled out by the primary team Status: Acute
[2018-07-21] MEDS ORDERED: Epoetin Alfa 20000 UNIT/ML Inj SC ONE (14:00)
[2018-07-22] MEDS: Ammonium Lactate 12% Cream (140 g) TOP SCH ×2 (09:40→16:15)
[2018-07-22] MEDS: Pantoprazole 40 mg EC Tab PO SCH (09:44)
--- NOTE | 2018-07-22 10:46 | CP.PCM.PN ---
Subjective - Date & Time of Evaluation Date of Evaluation: 07/22/18 Time of Evaluation: 10:46 - Subjective Subjective: Patient awake and conscious not in acute distress Vital signs reported to be stable Objective - Vital Signs/Intake and Output Vital Signs (last 24 hours): Temp Pulse Resp BP Pulse Ox 98.7 F 65 20 176/79 H 96 07/22/18 08:40 07/22/18 09:43 07/22/18 08:40 07/22/18 09:43 07/22/18 08:40 - Medications Medications: Current Medications Acetaminophen (Tylenol 325mg Tab) 650 mg PO Q4 PRN PRN Reason: Pain, moderate (4-7) Last Admin: 07/21/18 10:46 Dose: 650 mg Allopurinol (Zyloprim) 100 mg PO DAILY [facility] Last Admin: 07/22/18 09:44 Dose: 100 mg Amlodipine Besylate (Norvasc) 5 mg PO DAILY [facility] Last Admin: 07/22/18 09:43 Dose: 5 mg Aspirin (Ecotrin) 81 mg PO DAILY [facility] Last Admin: 07/22/18 09:44 Dose: 81 mg Atorvastatin Calcium (Lipitor) 80 mg PO HS [facility] Last Admin: 07/21/18 22:07 Dose: 80 mg Carvedilol (Coreg) 25 mg PO Q12 [facility] Last Admin: 07/22/18 09:43 Dose: 25 mg Clopidogrel Bisulfate (Plavix) 75 mg PO DAILY [facility] Last Admin: 07/22/18 09:44 Dose: 75 mg Cyanocobalamin (Vitamin B12 1000 Mcg Tab) 1,000 mcg PO DAILY [facility] Last Admin: 07/22/18 09:44 Dose: 1,000 mcg Ferrous Sulfate (Feosol) 325 mg PO BID [facility] Last Admin: 07/22/18 09:44 Dose: 325 mg Folic Acid (Folic Acid) 1 mg PO DAILY [facility] Last Admin: 07/22/18 09:43 Dose: 1 mg Heparin Sodium (Porcine) (Heparin) 5,000 units SC Q12 [facility]; Protocol Last Admin: 07/22/18 09:40 Dose: 5,000 units Lactic Acid (Lac-Hydrin 12% Cream (140 G)) 1 ea TOP BID [facility] Last Admin: 07/22/18 09:40 Dose: 1 applic Memantine (Namenda) 5 mg PO HS [facility] Last Admin: 07/21/18 22:07 Dose: 5 mg Olanzapine (Zyprexa) 2.5 mg PO BID [facility] Last Admin: 07/22/18 09:48 Dose: 2.5 mg Pantoprazole Sodium (Protonix Ec Tab) 40 mg PO DAILY [facility] Last Admin: 07/22/18 09:44 Dose: 40 mg Torsemide (Demadex) 5 mg PO QOTHERDAY [facility] Last Admin: 07/18/18 09:52 Dose: 5 mg - Labs Labs: 07/19/18 05:56 07/21/18 12:00 - Constitutional Appears: No Acute Distress - Eye Exam Eye Exam: Conjunctival injection - ENT Exam ENT Exam: Mucous Membranes Moist - Neck Exam Neck Exam: absent: Lymphadenopathy - Respiratory Exam Respiratory Exam: NORMAL BREATHING PATTERN. absent: Chest Wall Tenderness - Cardiovascular Exam Cardiovascular Exam: absent: Gallop, JVD, Rubs - GI/Abdominal Exam GI & Abdominal Exam: Soft, Normal Bowel Sounds - Extremities Exam Extremities Exam: absent: Calf Tenderness - Back Exam Back Exam: absent: CVA tenderness (L), CVA tenderness (R) - Neurological Exam Neurological Exam: Alert - Psychiatric Exam Psychiatric exam: Normal Affect - Skin Skin Exam: absent: Cyanosis Assessment and Plan (1) Chronic kidney disease, stage IV (severe) Assessment & Plan: Patient most likely has acute kidney injury superimposed on chronic kidney disease is stage IV. And improving Etiology multifactorial Hyperkalemia corrected Debility. Anemia hemoglobin 9.0 Recommendation Serum creatinine trending down and improving . Probably serum creatinine coming down to baseline Serum electrolytes in particular potassium is corrected Anemia patient started on EPO Status: Acute
[2018-07-23] MEDS: Ammonium Lactate 12% Cream (140 g) TOP SCH ×2 (09:09→17:16)
[2018-07-23] MEDS: Pantoprazole 40 mg EC Tab PO SCH (09:10)
[2018-07-23 09:13] LABS: BASO # 0.1 K/uL (0.0-0.2); BASO % 1.8 % (0.0-2.0); EOS # 0.1 K/uL (0.0-0.7); EOS % 2.1 % (0.0-4.0); HEMOGLOBIN 9.3 g/dL (12.0-16.0); LYMPH # 1.3 K/uL (1.0-4.3); LYMPH % 22.4 % (20.0-40.0); MEAN CELL VOLUME 96.7 fl (81.0-99.0); MEAN CORPUSCULAR HEMOGLOBIN 30.7 pg (27.0-31.0); MEAN CORPUSCULAR HGB CONC 31.8 g/dL (33.0-37.0); MONO # 0.4 K/uL (0.0-0.8); MONO % 7.4 % (0.0-10.0); NEUT # 3.9 K/uL (1.8-7.0); NEUT % 66.3 % (50.0-75.0); RBC 3.05 Mil/uL (3.80-5.20); RED CELL DISTRIBUTION WIDTH 15.3 % (11.5-14.5); WHITE BLOOD COUNT 5.9 K/uL (4.8-10.8)
--- NOTE | 2018-07-23 10:53 | CP.PCM.PN ---
Subjective - Date & Time of Evaluation Date of Evaluation: 07/23/18 Time of Evaluation: 10:51 - Subjective Subjective: Patient awake and conscious feeling good No shortness of breath no difficulty breathing. Vital signs noted to be stable. Objective - Vital Signs/Intake and Output Vital Signs (last 24 hours): Temp Pulse Resp BP Pulse Ox 98.5 F 62 20 163/71 H 95 07/23/18 08:19 07/23/18 09:10 07/23/18 08:19 07/23/18 09:10 07/23/18 08:19 - Medications Medications: Current Medications Acetaminophen (Tylenol 325mg Tab) 650 mg PO Q4 PRN PRN Reason: Pain, moderate (4-7) Last Admin: 07/21/18 10:46 Dose: 650 mg Allopurinol (Zyloprim) 100 mg PO DAILY [facility] Last Admin: 07/23/18 09:10 Dose: 100 mg Amlodipine Besylate (Norvasc) 5 mg PO DAILY [facility] Last Admin: 07/23/18 09:10 Dose: 5 mg Aspirin (Ecotrin) 81 mg PO DAILY [facility] Last Admin: 07/23/18 09:09 Dose: 81 mg Atorvastatin Calcium (Lipitor) 80 mg PO HS [facility] Last Admin: 07/22/18 21:40 Dose: 80 mg Carvedilol (Coreg) 25 mg PO Q12 [facility] Last Admin: 07/23/18 09:08 Dose: 25 mg Clopidogrel Bisulfate (Plavix) 75 mg PO DAILY [facility] Last Admin: 07/23/18 09:10 Dose: 75 mg Cyanocobalamin (Vitamin B12 1000 Mcg Tab) 1,000 mcg PO DAILY [facility] Last Admin: 07/23/18 09:10 Dose: 1,000 mcg Ferrous Sulfate (Feosol) 325 mg PO BID [facility] Last Admin: 07/22/18 16:15 Dose: 325 mg Folic Acid (Folic Acid) 1 mg PO DAILY [facility] Last Admin: 07/23/18 09:09 Dose: 1 mg Heparin Sodium (Porcine) (Heparin) 5,000 units SC Q12 [facility]; Protocol Last Admin: 07/23/18 09:09 Dose: 5,000 units Lactic Acid (Lac-Hydrin 12% Cream (140 G)) 1 ea TOP BID [facility] Last Admin: 07/23/18 09:09 Dose: 1 applic Memantine (Namenda) 5 mg PO HS [facility] Last Admin: 07/22/18 21:40 Dose: 5 mg Olanzapine (Zyprexa) 2.5 mg PO BID [facility] Last Admin: 07/23/18 09:10 Dose: 2.5 mg Pantoprazole Sodium (Protonix Ec Tab) 40 mg PO DAILY [facility] Last Admin: 07/23/18 09:10 Dose: 40 mg Torsemide (Demadex) 5 mg PO QOTHERDAY [facility] Last Admin: 07/18/18 09:52 Dose: 5 mg - Labs Labs: 07/23/18 08:30 07/21/18 12:00 - Constitutional Appears: No Acute Distress - Eye Exam Eye Exam: Conjunctival injection - ENT Exam ENT Exam: Mucous Membranes Moist - Neck Exam Neck Exam: absent: Lymphadenopathy - GI/Abdominal Exam GI & Abdominal Exam: Soft, Normal Bowel Sounds - Extremities Exam Extremities Exam: absent: Calf Tenderness - Back Exam Back Exam: absent: CVA tenderness (L), CVA tenderness (R) - Neurological Exam Neurological Exam: Alert - Psychiatric Exam Psychiatric exam: Normal Affect - Skin Skin Exam: absent: Cyanosis Assessment and Plan (1) Chronic kidney disease, stage IV (severe) Assessment & Plan: Patient most likely has acute kidney injury superimposed on chronic kidney disease is stage IV. And improving Etiology multifactorial Hyperkalemia corrected Debility. Anemia hemoglobin 9.0 Recommendation Serum creatinine trending down and improving . Probably serum creatinine coming down to baseline Serum electrolytes stbla Anemia patient started on EPO Repeat BMP and CBC tomorrow Status: Acute
[2018-07-23 12:06] LABS: ALB/GLOB RATIO 1.6 (1.0-2.1); ALBUMIN 3.4 g/dL (3.5-5.0); CALCIUM 9.1 mg/dL (8.4-10.2)
[2018-07-23] MEDS: Magnesium Oxide 400 mg Tab UD PO SCH (17:15)
--- NOTE | 2018-07-23 20:22 | CP.PCM.PN ---
Subjective - Date & Time of Evaluation Date of Evaluation: 07/23/18 Time of Evaluation: 20:22 - Subjective Subjective: pt doign well. no f/c, n//d. more awake/alert today case d/c w/ son for dc tues cont pt/ot Objective - Vital Signs/Intake and Output Vital Signs (last 24 hours): Temp Pulse Resp BP Pulse Ox 97.3 F L 63 20 158/71 H 98 07/23/18 17:16 07/23/18 17:16 07/23/18 17:16 07/23/18 17:16 07/23/18 17:16 - Medications Medications: Current Medications Acetaminophen (Tylenol 325mg Tab) 650 mg PO Q4 PRN PRN Reason: Pain, moderate (4-7) Last Admin: 07/21/18 10:46 Dose: 650 mg Allopurinol (Zyloprim) 100 mg PO DAILY [facility] Last Admin: 07/23/18 09:10 Dose: 100 mg Amlodipine Besylate (Norvasc) 5 mg PO DAILY [facility] Last Admin: 07/23/18 09:10 Dose: 5 mg Aspirin (Ecotrin) 81 mg PO DAILY [facility] Last Admin: 07/23/18 09:09 Dose: 81 mg Atorvastatin Calcium (Lipitor) 80 mg PO HS [facility] Last Admin: 07/22/18 21:40 Dose: 80 mg Carvedilol (Coreg) 25 mg PO Q12 [facility] Last Admin: 07/23/18 09:08 Dose: 25 mg Clopidogrel Bisulfate (Plavix) 75 mg PO DAILY [facility] Last Admin: 07/23/18 09:10 Dose: 75 mg Cyanocobalamin (Vitamin B12 1000 Mcg Tab) 1,000 mcg PO DAILY [facility] Last Admin: 07/23/18 09:10 Dose: 1,000 mcg Ferrous Sulfate (Feosol) 325 mg PO BID [facility] Last Admin: 07/23/18 17:18 Dose: 325 mg Folic Acid (Folic Acid) 1 mg PO DAILY [facility] Last Admin: 07/23/18 09:09 Dose: 1 mg Heparin Sodium (Porcine) (Heparin) 5,000 units SC Q12 [facility]; Protocol Last Admin: 07/23/18 09:09 Dose: 5,000 units Lactic Acid (Lac-Hydrin 12% Cream (140 G)) 1 ea TOP BID [facility] Last Admin: 07/23/18 17:16 Dose: 1 applic Magnesium Oxide (Mag-Ox) 400 mg PO DAILY [facility] Last Admin: 07/23/18 17:15 Dose: 400 mg Memantine (Namenda) 5 mg PO HS [facility] Last Admin: 07/22/18 21:40 Dose: 5 mg Olanzapine (Zyprexa) 2.5 mg PO BID [facility] Last Admin: 07/23/18 17:15 Dose: 2.5 mg Pantoprazole Sodium (Protonix Ec Tab) 40 mg PO DAILY [facility] Last Admin: 07/23/18 09:10 Dose: 40 mg Torsemide (Demadex) 5 mg PO QOTHERDAY [facility] Last Admin: 07/18/18 09:52 Dose: 5 mg - Labs Labs: 07/23/18 08:30 07/23/18 08:30 - Constitutional Appears: Well, Non-toxic, No Acute Distress - Head Exam Head Exam: ATRAUMATIC, NORMAL INSPECTION, NORMOCEPHALIC - Eye Exam Eye Exam: EOMI, Normal appearance, PERRL Pupil Exam: NORMAL ACCOMODATION, PERRL - ENT Exam ENT Exam: Mucous Membranes Moist, Normal Exam - Neck Exam Neck Exam: Full ROM, Normal Inspection. absent: Lymphadenopathy - Respiratory Exam Respiratory Exam: Clear to Ausculation Bilateral, NORMAL BREATHING PATTERN - Cardiovascular Exam Cardiovascular Exam: REGULAR RHYTHM, RRR, +S1, +S2. absent: Murmur - GI/Abdominal Exam GI & Abdominal Exam: Soft, Normal Bowel Sounds. absent: Tenderness - Extremities Exam Extremities Exam: Full ROM, Normal Capillary Refill, Normal Inspection. absent: Joint Swelling, Pedal Edema - Back Exam Back Exam: NORMAL INSPECTION - Neurological Exam Neurological Exam: Alert, Awake, CN II-XII Intact, Normal Gait, Oriented x3 - Psychiatric Exam Psychiatric exam: Normal Affect, Normal Mood - Skin Skin Exam: Dry, Intact, Normal Color, Warm Assessment and Plan (1) Cellulitis, leg Status: Acute (2) Aortic stenosis, severe Status: Acute (3) CKD (chronic kidney disease) Status: Acute (4) DVT prophylaxis Status: Acute - Assessment and Plan (Free Text) Assessment: (1) Cellulitis, leg Assessment & Plan: wound care doing well w/ pt/ot Status: Acute (2) Aortic stenosis, severe Assessment & Plan: cont home meds murmur remains. no dyspnea Status: Acute (3) CKD (chronic kidney disease) Assessment & Plan: nephro bw noted k noted-kayexalate given Status: Acute (4) DVT prophylaxis Assessment & Plan: scd and aeh ose heparin Status: Acute
[2018-07-24 08:09] LABS: CALCIUM 8.4 mg/dL (8.4-10.2)
[2018-07-24] MEDS: Pantoprazole 40 mg EC Tab PO SCH (08:47)
[2018-07-24] MEDS: Ammonium Lactate 12% Cream (140 g) TOP SCH ×2 (08:49→17:00)
[2018-07-24] MEDS: Magnesium Oxide 400 mg Tab UD PO SCH ×2 (08:49→17:00)
[2018-07-24] MEDS: Multivitamin Vitamin B Complex (Nephro-Vite) Tab PO SCH (12:33)
[2018-07-24] MEDS: Epoetin Alfa 4000 UNIT/ML Inj SC SCH (12:34)
--- NOTE | 2018-07-24 16:46 | CP.PCM.PN ---
Subjective - Date & Time of Evaluation Date of Evaluation: 07/24/18 Time of Evaluation: 16:42 - Subjective Subjective: Nephrology Consultation Note Assessment: Stable Acute Kidney Injury (N17.9) improving Hypertensive Chronic Kidney Disease (I12.9) Chronic Kidney Disease (N18.4) Stage 4 Anemia (D64.9), Hyperphosphatemia (E83.39), Secondary Hyperparathyroidism (E21.1) metabolic acidosis hypomagnesemia Plan No acute need for renal replacement therapy at this time. Hypertension control with meds as ordered. Maintain hemodynamics stable. Avoid hypotension. Patient not on ACEI/ARB due to recent ADRIANNA Monitor Input/Output, daily weights and renal function with basic metabolic panel will add sodium bicarb 650 bid and increase Mag 400 bid continue with Iron, MVI and epogen as ordered. PRBC as needed diuretics on hold for now but likely will need to be resumed soon Dose meds/antibiotics for reduced GFR. Avoid fleets enema/magnesium based laxatives. Avoid nephrotoxins/NSAIDs/ iodinated contrast (unless needed emergently) Glycemic control Further work up for as per primary team Thanks for allowing me to participate in care of your patient. Will follow patient with you. Please call if any Qs. had d/w family bedside. Dr Raul Castellanos Office: [phone] Subjective: Noted events overnight. Patients feels okay. Denies chest pain, palpitation, shortness of breath. improved leg swelling. All other negative Physical Examination: General Appearance: Comfortable, in no acute respiratory distress, co-operative . Vitals reviewed and noted as below Head; Atraumatic, normocephalic Lungs: Normal respiratory rate/effort. Breath sounds bilateral reduced at bases. occasional crackles + Heart: Normal rate. s1s2 normal. No rub or gallop. SM + at aortic area Extremities: 1-2+ edema. No varicose veins Neurological: Patient is alert, awake and oriented. No focal deficit. Strength bilateral appropriate and equal Skin: Warm and dry. Normal turgor. No rash. Palpitation: Normal elasticity for age Abdomen: Abdomen is soft. Bowel sounds +. There is no abdominal tenderness, no guarding/rigidity no organomegaly Psych: limited insight and has normal affect/mood MSK: no joint tenderness or swelling. Digits and nails normal, no deformity : kidney or bladder not palpable Labs/imaging reviewed. Past medical history, past surgical history, family history, social history, allergy reviewed and noted as below Family hx: no hx of CKD. Rest non-contributory Objective - Vital Signs/Intake and Output Vital Signs (last 24 hours): Temp Pulse Resp BP Pulse Ox 98.5 F 63 20 135/75 97 07/24/18 15:46 07/24/18 15:46 07/24/18 15:46 07/24/18 15:46 07/24/18 15:46 - Medications Medications: Current Medications Acetaminophen (Tylenol 325mg Tab) 650 mg PO Q4 PRN PRN Reason: Pain, moderate (4-7) Last Admin: 07/21/18 10:46 Dose: 650 mg Allopurinol (Zyloprim) 100 mg PO DAILY [facility] Last Admin: 07/24/18 08:47 Dose: 100 mg Amlodipine Besylate (Norvasc) 5 mg PO DAILY [facility] Last Admin: 07/24/18 08:46 Dose: 5 mg Aspirin (Ecotrin) 81 mg PO DAILY [facility] Last Admin: 07/24/18 08:46 Dose: 81 mg Atorvastatin Calcium (Lipitor) 80 mg PO HS [facility] Last Admin: 07/23/18 21:49 Dose: 80 mg Carvedilol (Coreg) 25 mg PO Q12 [facility] Last Admin: 07/24/18 08:48 Dose: 25 mg Clopidogrel Bisulfate (Plavix) 75 mg PO DAILY [facility] Last Admin: 07/24/18 08:49 Dose: 75 mg Cyanocobalamin (Vitamin B12 1000 Mcg Tab) 1,000 mcg PO DAILY [facility] Last Admin: 07/24/18 08:47 Dose: 1,000 mcg Epoetin Crow (Procrit) 4,000 unit SC TTS [facility] Stop: 07/31/18 09:01 Last Admin: 07/24/18 12:34 Dose: 4,000 unit Ferrous Sulfate (Feosol) 325 mg PO BID [facility] Last Admin: 07/24/18 08:49 Dose: 325 mg Folic Acid (Folic Acid) 1 mg PO DAILY [facility] Last Admin: 07/24/18 08:49 Dose: 1 mg Heparin Sodium (Porcine) (Heparin) 5,000 units SC Q12 [facility]; Protocol Last Admin: 07/24/18 08:50 Dose: 5,000 units Lactic Acid (Lac-Hydrin 12% Cream (140 G)) 1 ea TOP BID [facility] Last Admin: 07/24/18 08:49 Dose: 1 applic Magnesium Oxide (Mag-Ox) 400 mg PO BID [facility] Memantine (Namenda) 5 mg PO HS [facility] Last Admin: 07/23/18 21:49 Dose: 5 mg Olanzapine (Zyprexa) 2.5 mg PO BID [facility] Last Admin: 07/24/18 08:47 Dose: 2.5 mg Pantoprazole Sodium (Protonix Ec Tab) 40 mg PO DAILY [facility] Last Admin: 07/24/18 08:47 Dose: 40 mg Sodium Bicarbonate (Sodium Bicarbonate Tab) 650 mg PO BID [facility] Last Admin: 07/24/18 12:34 Dose: 650 mg Torsemide (Demadex) 5 mg PO QOTHERDAY [facility] Last Admin: 07/18/18 09:52 Dose: 5 mg Vitamin B Complex/Vit C/Folic Acid (Nephro-Sandra) 1 tab PO DAILY [facility] Last Admin: 07/24/18 12:33 Dose: 1 tab - Labs Labs: 07/23/18 08:30 07/24/18 06:00
[2018-07-25] MEDS: Multivitamin Vitamin B Complex (Nephro-Vite) Tab PO SCH (10:03)
[2018-07-25] MEDS: Magnesium Oxide 400 mg Tab UD PO SCH ×2 (10:03→16:33)
[2018-07-25] MEDS: Ammonium Lactate 12% Cream (140 g) TOP SCH ×3 (10:03→16:32)
[2018-07-25] MEDS: Pantoprazole 40 mg EC Tab PO SCH (10:05)
--- NOTE | 2018-07-25 12:10 | CP.PCM.PN ---
Subjective - Date & Time of Evaluation Date of Evaluation: 07/25/18 Time of Evaluation: 12:09 - Subjective Subjective: Nephrology Consultation Note Assessment: Stable Acute Kidney Injury (N17.9) improving Hypertensive Chronic Kidney Disease (I12.9) Chronic Kidney Disease (N18.4) Stage 4 Anemia (D64.9), Hyperphosphatemia (E83.39), Secondary Hyperparathyroidism (E21.1) metabolic acidosis hypomagnesemia Plan No acute need for renal replacement therapy at this time. Hypertension control with meds as ordered. Maintain hemodynamics stable. Avoid hypotension. Patient not on ACEI/ARB due to recent ADRIANNA. Increased norvasc 10 mg/d Monitor Input/Output, daily weights and renal function with basic metabolic panel will add sodium bicarb 650 bid and increase Mag 400 bid continue with Iron, MVI and epogen as ordered. PRBC as needed diuretics on hold for now but likely will need to be resumed soon, in next 1-2 day Dose meds/antibiotics for reduced GFR. Avoid fleets enema/magnesium based laxatives. Avoid nephrotoxins/NSAIDs/ iodinated contrast (unless needed emergently) Glycemic control Further work up for as per primary team Thanks for allowing me to participate in care of your patient. Will follow patient with you. Please call if any Qs. had d/w family bedside. Dr Raul Castellanos Office: [phone] Subjective: Noted events overnight. Patients feels okay. Denies chest pain, palpitation, shortness of breath. improved leg swelling. All other negative Physical Examination: General Appearance: Comfortable, in no acute respiratory distress, co-operative . Vitals reviewed and noted as below Head; Atraumatic, normocephalic Lungs: Normal respiratory rate/effort. Breath sounds bilateral reduced at bases. occasional rale + Heart: Normal rate. s1s2 normal. No rub or gallop. SM + at aortic area Extremities: 1-2+ edema. No varicose veins Neurological: Patient is alert, awake and oriented. No focal deficit. Strength bilateral appropriate and equal Skin: Warm and dry. Normal turgor. No rash. Palpitation: Normal elasticity for age Abdomen: Abdomen is soft. Bowel sounds +. There is no abdominal tenderness, no guarding/rigidity no organomegaly Psych: limited insight and has normal affect/mood MSK: no joint tenderness or swelling. Digits and nails normal, no deformity : kidney or bladder not palpable Labs/imaging reviewed. Past medical history, past surgical history, family history, social history, allergy reviewed and noted as below Family hx: no hx of CKD. Rest non-contributory Objective - Vital Signs/Intake and Output Vital Signs (last 24 hours): Temp Pulse Resp BP Pulse Ox 98.9 F 63 20 156/72 H 96 07/25/18 08:22 07/25/18 11:20 07/25/18 08:22 07/25/18 11:20 07/25/18 08:22 - Medications Medications: Current Medications Acetaminophen (Tylenol 325mg Tab) 650 mg PO Q4 PRN PRN Reason: Pain, moderate (4-7) Last Admin: 07/21/18 10:46 Dose: 650 mg Allopurinol (Zyloprim) 100 mg PO DAILY [facility] Last Admin: 07/25/18 10:05 Dose: 100 mg Amlodipine Besylate (Norvasc) 10 mg PO DAILY [facility] Aspirin (Ecotrin) 81 mg PO DAILY [facility] Last Admin: 07/25/18 09:56 Dose: 81 mg Atorvastatin Calcium (Lipitor) 80 mg PO HS [facility] Last Admin: 07/24/18 21:01 Dose: 80 mg Carvedilol (Coreg) 25 mg PO Q12 [facility] Last Admin: 07/25/18 10:12 Dose: 25 mg Clopidogrel Bisulfate (Plavix) 75 mg PO DAILY [facility] Last Admin: 07/25/18 10:04 Dose: 75 mg Cyanocobalamin (Vitamin B12 1000 Mcg Tab) 1,000 mcg PO DAILY [facility] Last Admin: 07/25/18 10:05 Dose: 1,000 mcg Epoetin Crow (Procrit) 4,000 unit SC TTS [facility] Stop: 07/31/18 09:01 Last Admin: 07/24/18 12:34 Dose: 4,000 unit Ferrous Sulfate (Feosol) 325 mg PO BID [facility] Last Admin: 07/25/18 10:01 Dose: 325 mg Folic Acid (Folic Acid) 1 mg PO DAILY [facility] Last Admin: 07/25/18 10:02 Dose: 1 mg Heparin Sodium (Porcine) (Heparin) 5,000 units SC Q12 [facility]; Protocol Last Admin: 07/25/18 10:02 Dose: 5,000 units Lactic Acid (Lac-Hydrin 12% Cream (140 G)) 1 ea TOP BID [facility] Last Admin: 07/25/18 10:13 Dose: Not Given Magnesium Oxide (Mag-Ox) 400 mg PO BID [facility] Last Admin: 07/25/18 10:03 Dose: 400 mg Memantine (Namenda) 5 mg PO HS [facility] Last Admin: 07/24/18 21:01 Dose: 5 mg Olanzapine (Zyprexa) 2.5 mg PO BID [facility] Last Admin: 07/25/18 10:06 Dose: 2.5 mg Pantoprazole Sodium (Protonix Ec Tab) 40 mg PO DAILY [facility] Last Admin: 07/25/18 10:05 Dose: 40 mg Sodium Bicarbonate (Sodium Bicarbonate Tab) 650 mg PO BID [facility] Last Admin: 07/25/18 10:05 Dose: 650 mg Torsemide (Demadex) 5 mg PO QOTHERDAY [facility] Last Admin: 07/18/18 09:52 Dose: 5 mg Vitamin B Complex/Vit C/Folic Acid (Nephro-Sandra) 1 tab PO DAILY [facility] Last Admin: 07/25/18 10:03 Dose: 1 tab - Labs Labs: 07/23/18 08:30 07/24/18 06:00
[2018-07-26] MEDS: Ammonium Lactate 12% Cream (140 g) TOP SCH ×2 (08:14→16:30)
[2018-07-26] MEDS: Pantoprazole 40 mg EC Tab PO SCH (08:15)
[2018-07-26] MEDS: Multivitamin Vitamin B Complex (Nephro-Vite) Tab PO SCH (08:16)
[2018-07-26] MEDS: Magnesium Oxide 400 mg Tab UD PO SCH ×2 (08:17→16:31)
--- NOTE | 2018-07-26 11:01 | CP.PCM.PN ---
Subjective - Date & Time of Evaluation Date of Evaluation: 07/26/18 Time of Evaluation: 11:00 - Subjective Subjective: Patient is out of bed feeling good. No nausea no vomiting. Vital signs noted to be stable. Lab tests seems to be stable so with the kidney function. Objective - Vital Signs/Intake and Output Vital Signs (last 24 hours): Temp Pulse Resp BP Pulse Ox 98.9 F 60 20 163/70 H 96 07/26/18 08:16 07/26/18 08:16 07/26/18 08:16 07/26/18 08:16 07/26/18 08:16 - Medications Medications: Current Medications Acetaminophen (Tylenol 325mg Tab) 650 mg PO Q4 PRN PRN Reason: Pain, moderate (4-7) Last Admin: 07/21/18 10:46 Dose: 650 mg Allopurinol (Zyloprim) 100 mg PO DAILY [facility] Last Admin: 07/26/18 08:15 Dose: 100 mg Amlodipine Besylate (Norvasc) 10 mg PO DAILY [facility] Last Admin: 07/26/18 08:14 Dose: 10 mg Aspirin (Ecotrin) 81 mg PO DAILY [facility] Last Admin: 07/26/18 08:15 Dose: 81 mg Atorvastatin Calcium (Lipitor) 80 mg PO HS [facility] Last Admin: 07/25/18 21:45 Dose: 80 mg Carvedilol (Coreg) 25 mg PO Q12 [facility] Last Admin: 07/26/18 08:16 Dose: 25 mg Clopidogrel Bisulfate (Plavix) 75 mg PO DAILY [facility] Last Admin: 07/26/18 08:17 Dose: 75 mg Cyanocobalamin (Vitamin B12 1000 Mcg Tab) 1,000 mcg PO DAILY [facility] Last Admin: 07/26/18 08:15 Dose: 1,000 mcg Epoetin Crow (Procrit) 4,000 unit SC TTS [facility] Stop: 07/31/18 09:01 Last Admin: 07/24/18 12:34 Dose: 4,000 unit Ferrous Sulfate (Feosol) 325 mg PO BID [facility] Last Admin: 07/26/18 08:19 Dose: 325 mg Folic Acid (Folic Acid) 1 mg PO DAILY [facility] Last Admin: 07/26/18 08:15 Dose: 1 mg Heparin Sodium (Porcine) (Heparin) 5,000 units SC Q12 [facility]; Protocol Last Admin: 04/08/19 08:17 Dose: 5,000 units Lactic Acid (Lac-Hydrin 12% Cream (140 G)) 1 ea TOP BID [facility] Last Admin: 07/26/18 08:14 Dose: 1 applic Magnesium Oxide (Mag-Ox) 400 mg PO BID [facility] Last Admin: 07/26/18 08:17 Dose: 400 mg Memantine (Namenda) 5 mg PO HS [facility] Last Admin: 07/25/18 21:45 Dose: 5 mg Olanzapine (Zyprexa) 2.5 mg PO BID [facility] Last Admin: 07/26/18 08:15 Dose: 2.5 mg Pantoprazole Sodium (Protonix Ec Tab) 40 mg PO DAILY [facility] Last Admin: 07/26/18 08:15 Dose: 40 mg Sodium Bicarbonate (Sodium Bicarbonate Tab) 650 mg PO BID [facility] Last Admin: 07/26/18 08:14 Dose: 650 mg Torsemide (Demadex) 5 mg PO QOTHERDAY [facility] Last Admin: 07/18/18 09:52 Dose: 5 mg Vitamin B Complex/Vit C/Folic Acid (Nephro-Sandra) 1 tab PO DAILY [facility] Last Admin: 07/26/18 08:16 Dose: 1 tab - Labs Labs: 07/23/18 08:30 07/24/18 06:00 - Constitutional Appears: No Acute Distress - Eye Exam Eye Exam: Conjunctival injection - ENT Exam ENT Exam: Mucous Membranes Moist - Neck Exam Neck Exam: absent: Lymphadenopathy - Respiratory Exam Respiratory Exam: NORMAL BREATHING PATTERN. absent: Chest Wall Tenderness - Cardiovascular Exam Cardiovascular Exam: absent: Gallop, JVD, Rubs - GI/Abdominal Exam GI & Abdominal Exam: Soft, Normal Bowel Sounds - Extremities Exam Extremities Exam: absent: Calf Tenderness - Back Exam Back Exam: absent: CVA tenderness (L), CVA tenderness (R) - Neurological Exam Neurological Exam: Alert - Psychiatric Exam Psychiatric exam: Normal Affect - Skin Skin Exam: absent: Cyanosis Assessment and Plan (1) Chronic kidney disease, stage IV (severe) Assessment & Plan: Acute Kidney Injury (N17.9) improving Hypertensive Chronic Kidney Disease (I12.9) Chronic Kidney Disease (N18.4) Stage 4 Anemia (D64.9), Hyperphosphatemia (E83.39), Secondary Hyperparathyroidism (E21.1) metabolic acidosis hypomagnesemia Recommendation Kidney function stable Continue EPO for anemia to keep hemoglobin around 11 Sodium bicarbonate added for metabolic acidosis Status: Acute
[2018-07-26 19:38] VITALS: PULSE 61
--- NOTE | 2018-07-26 21:51 | CP.PCM.PN ---
Subjective - Date & Time of Evaluation Date of Evaluation: 07/26/18 Time of Evaluation: 21:51 - Subjective Subjective: pt doing well. no f/c, n/v/d. more awake/alert. for dc tomorrow. Objective - Vital Signs/Intake and Output Vital Signs (last 24 hours): Temp Pulse Resp BP Pulse Ox 99.2 F 61 20 153/66 H 97 07/26/18 19:37 07/26/18 19:37 07/26/18 19:37 07/26/18 19:37 07/26/18 19:37 - Medications Medications: Current Medications Acetaminophen (Tylenol 325mg Tab) 650 mg PO Q4 PRN PRN Reason: Pain, moderate (4-7) Last Admin: 07/21/18 10:46 Dose: 650 mg Allopurinol (Zyloprim) 100 mg PO DAILY [facility] Last Admin: 07/26/18 08:15 Dose: 100 mg Amlodipine Besylate (Norvasc) 10 mg PO DAILY [facility] Last Admin: 07/26/18 08:14 Dose: 10 mg Aspirin (Ecotrin) 81 mg PO DAILY [facility] Last Admin: 07/26/18 08:15 Dose: 81 mg Atorvastatin Calcium (Lipitor) 80 mg PO HS [facility] Last Admin: 07/25/18 21:45 Dose: 80 mg Carvedilol (Coreg) 25 mg PO Q12 [facility] Last Admin: 07/26/18 08:16 Dose: 25 mg Clopidogrel Bisulfate (Plavix) 75 mg PO DAILY [facility] Last Admin: 07/26/18 08:17 Dose: 75 mg Cyanocobalamin (Vitamin B12 1000 Mcg Tab) 1,000 mcg PO DAILY [facility] Last Admin: 07/26/18 08:15 Dose: 1,000 mcg Epoetin Crow (Procrit) 4,000 unit SC TTS [facility] Stop: 07/31/18 09:01 Last Admin: 07/24/18 12:34 Dose: 4,000 unit Ferrous Sulfate (Feosol) 325 mg PO BID [facility] Last Admin: 07/26/18 16:33 Dose: 325 mg Folic Acid (Folic Acid) 1 mg PO DAILY [facility] Last Admin: 07/26/18 08:15 Dose: 1 mg Heparin Sodium (Porcine) (Heparin) 5,000 units SC Q12 [facility]; Protocol Last Admin: 07/26/18 08:17 Dose: 5,000 units Lactic Acid (Lac-Hydrin 12% Cream (140 G)) 1 ea TOP BID [facility] Last Admin: 07/26/18 16:30 Dose: 1 applic Magnesium Oxide (Mag-Ox) 400 mg PO BID [facility] Last Admin: 07/26/18 16:31 Dose: 400 mg Memantine (Namenda) 5 mg PO HS [facility] Last Admin: 07/25/18 21:45 Dose: 5 mg Olanzapine (Zyprexa) 2.5 mg PO BID [facility] Last Admin: 07/26/18 16:30 Dose: 2.5 mg Pantoprazole Sodium (Protonix Ec Tab) 40 mg PO DAILY [facility] Last Admin: 07/26/18 08:15 Dose: 40 mg Sodium Bicarbonate (Sodium Bicarbonate Tab) 650 mg PO BID [facility] Last Admin: 07/26/18 16:30 Dose: 650 mg Torsemide (Demadex) 5 mg PO QOTHERDAY [facility] Last Admin: 07/18/18 09:52 Dose: 5 mg Vitamin B Complex/Vit C/Folic Acid (Nephro-Sandra) 1 tab PO DAILY [facility] Last Admin: 07/26/18 08:16 Dose: 1 tab - Labs Labs: 07/23/18 08:30 07/24/18 06:00
[2018-07-27] MEDS: Pantoprazole 40 mg EC Tab PO SCH (08:31)
[2018-07-27] MEDS: Magnesium Oxide 400 mg Tab UD PO SCH (08:32)
[2018-07-27] MEDS: Multivitamin Vitamin B Complex (Nephro-Vite) Tab PO SCH (08:32)
[2018-07-27] MEDS: Epoetin Alfa 4000 UNIT/ML Inj SC SCH (08:33)
[2018-07-27] MEDS: Ammonium Lactate 12% Cream (140 g) TOP SCH (08:34)
[2018-07-27 10:26] VITALS: BP 148/75
[2018-07-27 10:34] VITALS: TEMP 98.2; O2SAT 96
== END 2018-07-27 11:00 | disposition home or self-care (01) | DRG 603 ==
LOC: H.TCU 15:01
PROVIDERS: ADMIT Family Medicine; ATTEND Family Medicine
PROC: F07Z9FZ Gait Training/Functional Ambulation Treatment using Assistive, Adaptive, Supportive or Protective Equipment (ICD-10-PCS; principal; 2018-07-13)
PROC: F08Z4FZ Home Management Treatment using Assistive, Adaptive, Supportive or Protective Equipment (ICD-10-PCS; 2018-07-13)
PROC: F07L6FZ Therapeutic Exercise Treatment of Musculoskeletal System - Lower Back / Lower Extremity using Assistive, Adaptive, Supportive or Protective Equipment (ICD-10-PCS; 2018-07-13)
DX: L03.115 Cellulitis of right lower limb (principal); N18.4 Chronic kidney disease, stage 4 (severe); N17.9 Acute kidney failure, unspecified; E87.2 Acidosis; N25.81 Secondary hyperparathyroidism of renal origin; I12.9 Hypertensive chronic kidney disease with stage 1 through stage 4 chronic kidney disease, or unspecified chronic kidney disease; E87.5 Hyperkalemia; E83.42 Hypomagnesemia; E11.22 Type 2 diabetes mellitus with diabetic chronic kidney disease; G31.84 Mild cognitive impairment of uncertain or unknown etiology; I35.0 Nonrheumatic aortic (valve) stenosis; E11.65 Type 2 diabetes mellitus with hyperglycemia; N39.498 Other specified urinary incontinence; D64.9 Anemia, unspecified; E78.00 Pure hypercholesterolemia, unspecified; R54 Age-related physical debility; M19.90 Unspecified osteoarthritis, unspecified site; H35.30 Unspecified macular degeneration; Z88.0 Allergy status to penicillin